=== PATIENT | male | born 1965 | race Caucasian/White ===

== ENCOUNTER 2016-12-09 23:51 | Observation (INO) | payer MEDICAID, OTHER ==
[2016-12-10] MEDS ORDERED: THIAMINE 200 MG/2 ML IV ONE (00:35)
--- NOTE | 2016-12-10 00:42 | ERPHSYRPT ---
- History of Present Illness Time Seen by Provider: 12/10/16 00:37 Source: patient Exam Limitations: no limitations Physician History: This is a 51-year-old white male with history of coronary artery disease, high blood pressure, myocardial infarction, diabetes, arthritis, hepatitis, anxiety, bipolar depression, chronic back pain, hepatitis C Patient is brought with complaint of a seizure by the medics patient was noted to have Accu-Chek reads high high high per medics Patient states he hasn't been feeling well for the past few days he's been having some lower abdominal pain he is not having any vomiting he has had a off for the past several days denies any fevers. Patient does state that he occasionally uses alcohol he admits to drinking today but cannot quantify how much. He also states that he occasionally uses marijuana. Patient also states that he smokes tobacco. Timing/Duration: today Severity: moderate Modifying Factors: Improves With: nothing Associated Symptoms: abdominal pain, cough, chest pain (pain with coughing anterior chest), malaise, seizure, No nausea, No vomiting, No shortness of breath, No heartburn, No diaphoresis, No fever, No headaches, No loss of appetite, No rash, No syncope, No weakness Allergies/Adverse Reactions: Penicillins Allergy (Verified 12/10/16 00:56) cant remember tramadol Adverse Reaction (Mild, Verified 12/10/16 00:56) "It makes my stomach messed up" haloperidol [From Haldol] Adverse Reaction (Verified 12/10/16 00:56) muscle contractions Home Medications: Atorvastatin Calcium 40 mg PO DAILY 02/12/16 [History] Insulin Regular, Human [Humulin R] 1 unit IJ DAILY 02/12/16 [History] Isosorbide Mononitrate 30 mg [Imdur 30 MG] 30 mg PO DAILY 02/12/16 [History ] Lisinopril 5 mg [Zestril 5 MG] 5 mg PO DAILY 02/12/16 [History] Naproxen [Naprosyn] 500 mg PO BID 02/12/16 [History] Omeprazole 20 MG [Prilosec 20 mg] 20 mg PO DAILY 02/12/16 [History] Prasugrel HCl [Effient] 10 mg PO DAILY 02/12/16 [History] Hx Tetanus, Diphtheria Vaccination/Date Given: Yes Hx Influenza Vaccination/Date Given: Yes Hx Pneumococcal Vaccination/Date Given: No - Review of Systems Constitutional: No Fever, No Chills Eyes: No Symptoms Ears, Nose, & Throat: No Symptoms, No Ear Pain, No Ear Discharge, No Hearing Changes, No Tinnitus, No Nose Pain, No Nose Congestion, No Nose Discharge, No Sinus Drainage, No Epistaxis, No Mouth Pain, No Mouth Swelling, No Loose Teeth, No Throat Pain, No Throat Swelling, No Hoarse, No Painful Swallowing, No Snoring , No Stridor Respiratory: Cough, No Cyanosis, No Dyspnea, No Dyspnea on Exertion (ORTIZ), No Stridor, No Wheezing Cardiac: Chest Pain (pain with coughing anterior chest) Abdominal/Gastrointestinal: Abdominal Pain (pain level abdomen), No Nausea, No Vomiting, No Diarrhea, No Constipation, No Hematemesis, No Hematochezia, No Melena, No Dysphagia, No Appetite Changes Genitourinary Symptoms: No Dysuria Musculoskeletal: No Back Pain, No Neck Pain Skin: No Rash Neurological: Seizure (seizure activity just prior to arrival), No Dizziness, No Focal Weakness, No Sensory Changes Psychological: No Symptoms Endocrine: No Symptoms All Other Systems: Reviewed and Negative - Past Medical History Pertinent Past Medical History: Yes Neurological History: No Pertinent History, Seizures ENT History: No Pertinent History Cardiac History: Coronary Artery Disease, Hypertension, Myocardial Infarction ( [place]) Respiratory History: No Pertinent History Endocrine Medical History: Diabetes Type II Musculoskeletal History: Arthritis GI Medical History: GERD, Hepatitis History: No Pertinent History Psycho-Social History: Anxiety, Bipolar, Depression Male Reproductive Disorders: No Pertinent History Other Medical History: CHRONIC BACK PAIN , hepatitis C - Past Surgical History Past Surgical History: Yes Neuro Surgical History: No Pertinent History Cardiac: Angioplasty, Cardiac Catheterization Respiratory: No Pertinent History Gastrointestinal: Cholecystectomy Genitourinary: No Pertinent History Musculoskeletal: Orthopedic Surgery Male Surgical History: No Pertinent History Other Surgical History: KNEE - - Social History Smoking Status: Current every day smoker How long have you smoked: 25 yrs Exposure to second hand smoke: Yes Drug Use: marijuana Patient Lives Alone: No - Nursing Vital Signs Nursing Vital Signs: Initial Vital Signs Temperature 98 F Temperature Source Oral Pulse Rate 112 Respiratory Rate 16 Blood Pressure [Right Arm] 124/88 Pain Intensity 5 - Physical Exam General Appearance: mild distress Eye Exam: PERRL/EOMI, eyes nml inspection Ears, Nose, Throat Exam: normal ENT inspection, TMs normal, pharynx normal, moist mucous membranes Neck Exam: normal inspection, non-tender, supple, full range of motion Respiratory Exam: lungs clear, rhonchi (occasional rhonchi), No respiratory distress Cardiovascular Exam: regular rate/rhythm, normal heart sounds, normal peripheral pulses Gastrointestinal/Abdomen Exam: soft, normal bowel sounds, tenderness (lower abdominal tenderness), No mass Back Exam: normal inspection, normal range of motion, No CVA tenderness, No vertebral tenderness Extremity Exam: normal inspection, normal range of motion, pelvis stable Neurologic Exam: alert, oriented x 3, cooperative, normal mood/affect, nml cerebellar function, nml station & gait, sensation nml, No motor deficits Skin Exam: normal color, warm, dry, No rash SpO2 Interpretation: normal - Course Nursing assessment & vital signs reviewed: Yes Ordered Tests: Active Orders 24 hr Category Date Time Status Accucheck STAT Care 12/10/16 00:35 Active EKG-ER Only STAT Care 12/10/16 00:35 Active IV Insertion STAT Care 12/10/16 00:35 Active CHEST 1 VIEW (PORTABLE) Stat Exams 12/10/16 00:36 Taken ACETAMINOPHEN Stat Lab 12/10/16 00:35 Completed AMYLASE Stat Lab 12/10/16 00:35 Completed CBC W DIFF Stat Lab 12/10/16 00:35 Completed CMP Stat Lab 12/10/16 00:35 Completed Ethyl Alcohol,Urine Stat Lab 12/10/16 00:35 Completed LIPASE Stat Lab 12/10/16 00:35 Completed SALICYLATE Stat Lab 12/10/16 00:35 Completed TROPONIN Stat Lab 12/10/16 01:30 Received UA Stat Lab 12/10/16 00:35 Completed Urine Triage Profile Stat Lab 12/10/16 00:35 Completed VENOUS BLOOD GAS Urgent Lab 12/10/16 00:37 Completed Medication Summary Generic Name Dose Route Start Last Admin Trade Name Freq PRN Reason Stop Dose Admin Sodium Chloride 1,000 mls @ 100 mls/hr 12/10/16 00:45 12/10/16 01:00 Sodium Chloride 0.9% 1000 Ml IV 01/09/17 00:44 100 mls/hr .Q10H JENNIFER Administration Sodium Chloride 1,000 mls @ 999 mls/hr 12/10/16 01:17 Sodium Chloride 0.9% 1000 Ml IV 12/10/16 02:17 .Q1H1M STA Discontinued Medications Generic Name Dose Route Start Last Admin Trade Name Altaf PRN Reason Stop Dose Admin Sodium Chloride Confirm 12/10/16 00:58 Sodium Chloride 0.9% 1000 Ml Administered 12/10/16 00:59 Dose 1,000 mls @ .ROUTE .STK-MED ONE Morphine Sulfate 4 mg 12/10/16 01:31 Morphine Sulfate 4 Mg Inj IV 12/10/16 01:32 STAT ONE Thiamine HCl 100 mg 12/10/16 00:35 12/10/16 00:59 Thiamine 200 Mg/2 Ml IV 12/10/16 00:36 100 mg STAT ONE Administration Thiamine HCl Confirm 12/10/16 00:58 Thiamine 200 Mg/2 Ml Administered 12/10/16 00:59 Dose 200 mg .ROUTE .STK-MED ONE Lab/Rad Data: Laboratory Result Diagrams 12/10/16 00:35 12/10/16 00:35 Laboratory Results 12/10/16 12/10/16 12/10/16 Range/Units 00:37 00:35 00:35 WBC (4.0-10.5) K/mm3 RBC (4.1-5.6) M/mm3 Hgb (12.5-18.0) gm/dl Hct (42-50) % MCV (78-100) fl MCH (26-32) pg MCHC (32-36) g/dl RDW (11.5-14.0) % Plt Count (150-450) K/mm3 MPV (6-9.5) fl Gran % (36.0-66.0) % Lymphocytes % (24.0-44.0) % Monocytes % (0.0-12.0) % Eosinophils % (0.00-5.0) % Basophils % (0.0-0.4) % Basophils # (0-0.4) VBG pH 7.47 H (7.32-7.42) VBG pCO2 at Pat Temp 35 L (42-55) mm/Hg VBG pO2 at Pat Temp 39 (25-40) mm/Hg VBG HCO3 25.5 (22-28) meq/L VBG O2 Sat ([place]) 78.4 L (95-100) VBG Base Excess 2.2 H (-2.0-2.0) VBG Hemoglobin 15.9 VBG Carboxyhemoglobin 5.8 (0.0-6.9) % T HGB POC Potassium 5.6 H (3.5-5.1) Sodium 134 L (136-145) mEq/L Potassium 4.2 (3.5-5.1) mEq/L Chloride 97 L (98-107) mEq/L Carbon Dioxide 22.9 (21-32) mEq/L Anion Gap 18.6 H (5-15) MEQ/L BUN 12 (9-20) mg/dL Creatinine 1.03 (0.55-1.30) mg/dl Estimated GFR > 60 ML/MIN Glucose 742 H* (70-110) MG/DL Calcium 9.0 (8.5-10.1) mg/dL Total Bilirubin 0.7 (0.2-1.0) mg/dL AST 119 H (15-37) U/L ALT 226 H (12-78) U/L Alkaline Phosphatase 147 H (46-116) U/L Serum Total Protein 7.9 (6.4-8.2) gm/dL Albumin 3.0 L (3.4-5.0) g/dL Amylase 51 (25-115) U/L Lipase 136 (73-393) U/L Ur Collection Type Urine Color (YELLOW) Urine Appearance (CLEAR) Urine pH 5.5 (5-6) Ur Specific [place] (1.005-1.025) Urine Protein (Negative) Urine Glucose (UA) (NEGATIVE) mg/dL Urine Ketones (NEGATIVE) Urine Nitrite (NEGATIVE) Urine Bilirubin (NEGATIVE) Urine Urobilinogen (0-1) mg/dL Urine WBC (Auto) (NEGATIVE) Urine RBC (Auto) (0-5) Faisal/ul Salicylates < 2.8 L (2.8-20.0) mg/dl Urine Opiates Level (NEGATIVE) Ur Methadone (NEGATIVE) Acetaminophen < 2.0 L (10-30) ug/ml Urine Barbiturates (NEGATIVE) Ur Phencyclidine (PCP) (NEGATIVE) Urine Amphetamine (NEGATIVE) U Benzodiazepine Level (NEGATIVE) Urine Cocaine (NEGATIVE) Urine Marijuana (THC) (NEGATIVE) Urine Ethyl Alcohol 122 H (0.00-20) mg/dl Specimen Received 02/10/17 02/10/17 02/10/17 Range/Units 00:35 00:35 00:35 WBC 6.5 (4.0-10.5) K/mm3 RBC 5.01 (4.1-5.6) M/mm3 Hgb 15.5 (12.5-18.0) gm/dl Hct 46.6 (42-50) % MCV 93.0 (78-100) fl MCH 30.9 (26-32) pg MCHC 33.3 (32-36) g/dl RDW 13.9 (11.5-14.0) % Plt Count 113 L (150-450) K/mm3 MPV 11.8 H (6-9.5) fl Gran % 50.5 (36.0-66.0) % Lymphocytes % 38.8 (24.0-44.0) % Monocytes % 8.8 (0.0-12.0) % Eosinophils % 1.1 (0.00-5.0) % Basophils % 0.8 (0.0-0.4) % Basophils # 0.05 (0-0.4) VBG pH (7.32-7.42) VBG pCO2 at Pat Temp (42-55) mm/Hg VBG pO2 at Pat Temp (25-40) mm/Hg VBG HCO3 (22-28) meq/L VBG O2 Sat ([place]) (95-100) VBG Base Excess (-2.0-2.0) VBG Hemoglobin VBG Carboxyhemoglobin (0.0-6.9) % T HGB POC Potassium (3.5-5.1) Sodium (136-145) mEq/L Potassium (3.5-5.1) mEq/L Chloride (98-107) mEq/L Carbon Dioxide (21-32) mEq/L Anion Gap (5-15) MEQ/L BUN (9-20) mg/dL Creatinine (0.55-1.30) mg/dl Estimated GFR ML/MIN Glucose (70-110) MG/DL Calcium (8.5-10.1) mg/dL Total Bilirubin (0.2-1.0) mg/dL AST (15-37) U/L ALT (12-78) U/L Alkaline Phosphatase (46-116) U/L Serum Total Protein (6.4-8.2) gm/dL Albumin (3.4-5.0) g/dL Amylase (25-115) U/L Lipase (73-393) U/L Ur Collection Type CLEAN CATCH Urine Color YELLOW (YELLOW) Urine Appearance CLEAR (CLEAR) Urine pH 5.5 (5-6) Ur Specific [place] <=1.005 (1.005-1.025) Urine Protein NEGATIVE (Negative) Urine Glucose (UA) >=1000 (NEGATIVE) mg/dL Urine Ketones NEGATIVE (NEGATIVE) Urine Nitrite NEGATIVE (NEGATIVE) Urine Bilirubin NEGATIVE (NEGATIVE) Urine Urobilinogen 0.2 (0-1) mg/dL Urine WBC (Auto) NEGATIVE (NEGATIVE) Urine RBC (Auto) NEGATIVE (0-5) Faisal/ul Salicylates (2.8-20.0) mg/dl Urine Opiates Level NEG. (NEGATIVE) Ur Methadone NEG. (NEGATIVE) Acetaminophen (10-30) ug/ml Urine Barbiturates NEG. (NEGATIVE) Ur Phencyclidine (PCP) NEG. (NEGATIVE) Urine Amphetamine NEG. (NEGATIVE) U Benzodiazepine Level NEG. (NEGATIVE) Urine Cocaine NEG. (NEGATIVE) Urine Marijuana (THC) NEG. (NEGATIVE) Urine Ethyl Alcohol (0.00-20) mg/dl Specimen Received 12/10/16:0030 - Progress Progress: improved Progress Note: 12/10/16 01:38 Patient with a blood sugar greater than 700 and and gap is 18.6 Patient's blood alcohol level is 122, IV normal saline 2 L have been ordered on this patient will change to 150 an hour after they're both in Will start insulin drip Case is discussed with Dr. Martell Avendano will admit patient to ICU Diagnosis hyperglycemia alcohol intoxication seizure activity - Departure Time of Disposition: 01:56 Departure Disposition: Observation Clinical Impression: Hyperglycemia, Seizure Alcohol intoxication Qualifiers: Complication of substance-induced condition: uncomplicated Qualified Code(s): F10.120 - Alcohol abuse with intoxication, uncomplicated Condition: Fair Critical Care Time: No
[2016-12-10] MEDS ORDERED: Sodium Chloride 0.9% 1000 ML 1,000 ML IV SCH ×2 (00:45→04:15)
[2016-12-10 00:46] LABS: BASOPHIL % 0.8 % (0.0-0.4); Eosinophil % 1.1 % (0.00-5.0); Granulocytes % 50.5 % (36.0-66.0); Lymphocytes % 38.8 % (24.0-44.0); Mean Corpuscular Hemoglobin 30.9 pg (26-32); Mean Platelet Volume 11.8 fl (6-9.5); Monocytes % 8.8 % (0.0-12.0); Platelet Count 113 K/mm3 (150-450); Red Blood Count 5.01 M/mm3 (4.1-5.6); Red Cell Distribution Width 13.9 % (11.5-14.0); White Blood Count 6.5 K/mm3 (4.0-10.5)
[2016-12-10 00:48] LABS: COMPLETE URINE MICROSCOPIC? NO; Collection Type CLEAN CATCH; Ph 5.5 (5-6)
[2016-12-10] MEDS ORDERED: THIAMINE 200 MG/2 ML ONE (00:58)
[2016-12-10] MEDS ORDERED: Sodium Chloride 0.9% 1000 ML 1,000 ML ONE ×2 (00:58→02:07)
[2016-12-10 01:02] LABS: BILIRUBIN,TOTAL 0.7 mg/dL (0.2-1.0); BLOOD UREA NITROGEN 12 mg/dL (9-20); CHLORIDE 97 mEq/L (98-107); LIPASE 136 U/L (73-393); Total Protein 7.9 gm/dL (6.4-8.2)
[2016-12-10 01:15] LABS: ALKALINE PHOSPHATASE 147 U/L (46-116); ANION GAP 18.6 MEQ/L (5-15); Carbon Dioxide 22.9 mEq/L (21-32); Potassium 4.2 mEq/L (3.5-5.1); SGOT/AST 119 U/L (15-37); SGPT/ALT 226 U/L (12-78); SODIUM 134 mEq/L (136-145)
[2016-12-10 01:16] LABS: ACETAMINOPHEN < 2.0 ug/ml (10-30); Glucose 742 MG/DL (70-110)
[2016-12-10] MEDS ORDERED: Sodium Chloride 0.9% 1000 ML 1,000 ML IV STA ×2 (01:17→03:33)
[2016-12-10] MEDS ORDERED: MORPHINE SULFATE 4 MG INJ IV ONE (01:31)
[2016-12-10 01:38] LABS: VBG BASE EXCESS 2.2 (-2.0-2.0); VBG CARBOXYHEMOGLOBIN 5.8 % T HGB (0.0-6.9); VBG HCO3- 25.5 meq/L (22-28); VBG HEMOGLOBIN 15.9; VBG O2 SATURATION 78.4 (95-100); VBG POTASSIUM 5.6 (3.5-5.1); VBG pH 7.47 (7.32-7.42)
[2016-12-10] MEDS ORDERED: NOVOLIN R INSULIN (FOR DRIPS)** 100 UNITS in Sodium Chloride 0.9% 100 ML IVPB 100 ML IV SCH (02:00)
[2016-12-10] MEDS ORDERED: MORPHINE SULFATE 4 MG INJ ONE (02:07)
[2016-12-10] MEDS ORDERED: NovoLIN R ONE (02:21)
[2016-12-10] MEDS ORDERED: Sodium Chloride 0.9% 100 ML IVPB 100 ML IV ONE (02:22)
[2016-12-10] MEDS ORDERED: Ativan 2 MG/1 ML VIAL IV PRN (03:59)
[2016-12-10 05:42] LABS: ANION GAP 10.7 MEQ/L (5-15); BLOOD UREA NITROGEN 11 mg/dL (9-20); CHLORIDE 103 mEq/L (98-107); Carbon Dioxide 26.1 mEq/L (21-32); Glucose 358 MG/DL (70-110); Potassium 3.2 mEq/L (3.5-5.1); SODIUM 137 mEq/L (136-145)
[2016-12-10 05:43] LABS: Mean Cell Volume 91.8 fl (78-100); Mean Corpuscular Hemoglobin 31.1 pg (26-32); Mean Platelet Volume 11.7 fl (6-9.5); Platelet Count 98 K/mm3 (150-450); Red Blood Count 3.92 M/mm3 (4.1-5.6); Red Cell Distribution Width 13.7 % (11.5-14.0); White Blood Count 7.6 K/mm3 (4.0-10.5)
[2016-12-10] MEDS ORDERED: K-LYTE 25 MEQ PO SCH (06:30)
[2016-12-10] MEDS: NICODERM CQ 14 MG TOP SCH (06:45)
[2016-12-10] MEDS: POTASSIUM CHLORIDE 20 mEq IN WATER 100ML 100 ML IV SCH ×2 (06:45→08:07)
[2016-12-10] MEDS ORDERED: Klor Con 10 MEQ PO ONE (07:54)
--- NOTE | 2016-12-10 08:06 | PCM.HP ---
History of Present Illness - Chief Complaint Chief Complaint: DKA, ETOH intoxication, Seizure Date: 12/10/16 History of Present Illness: is a 51 year old male. who was released from shelter 3 days ago after being in shelter for 40 days. He has history of iv drug abuse with morphine he states he has been clean from this for that time period and was taking his meds in shelter but has not had any since release from shelter. He had "a few drinks but they were stiff". He called his friend because he was not feeling right who said he was not responding on the phone and then called the EMS who reported some possible seizure like activity and he was brought to the ED. THis am his only complaint is he is tired and hungry and his chronic back pain is bothering him. - Review of Systems Constitutional: No Fever, No Chills Eyes: No Symptoms Ears, Nose, & Throat: No Symptoms Respiratory: Cough, No Short Of Breath Cardiac: No Chest Pain, No Edema, No Syncope Abdominal/Gastrointestinal: No Abdominal Pain, No Nausea, No Vomiting, No Diarrhea Genitourinary Symptoms: No Dysuria Musculoskeletal: Back Pain, Joint Pain, No Neck Pain Skin: No Cellulitis, No Rash Neurological: No Dizziness, No Focal Weakness, No Sensory Changes Psychological: No Symptoms, Alcohol Abuse, Drug Abuse Endocrine: No Symptoms Hematologic/Lymphatic: No Symptoms Immunological/Allergic: No Symptoms Medications & Allergies Home Medications: Home Medication List Atorvastatin Calcium 40 mg PO DAILY 02/12/16 [History Confirmed 09/13/16] Insulin Regular, Human [Humulin R] 1 unit IJ DAILY 02/12/16 [History Confirmed 09/13/16] Isosorbide Mononitrate 30 mg [Imdur 30 MG] 30 mg PO DAILY 02/12/16 [ History Confirmed 09/13/16] Lisinopril 5 mg [Zestril 5 MG] 5 mg PO DAILY 02/12/16 [History Confirmed 09/13/16] Naproxen [Naprosyn] 500 mg PO BID 02/12/16 [History Confirmed 09/13/16] Omeprazole 20 MG [Prilosec 20 mg] 20 mg PO DAILY 02/12/16 [History Confirmed ] Prasugrel HCl [Effient] 10 mg PO DAILY 02/12/16 [History Confirmed 09/13/16] Naproxen 375 mg [Naprosyn 375 mg] 375 mg PO Q8H #30 tablet 08/15/16 [Rx Confirmed 09/13/16] Carvedilol [Coreg] 25 mg PO BID #60 tablet 09/17/16 [Rx] Citalopram Hydrobromide 20 mg* [ceLEXa 20 MG] 20 mg PO DAILY #30 tablet 09/17 [Rx] Clindamycin HCl [Cleocin HCl] 300 mg PO QID #28 capsule 09/17/16 [Rx] Insulin Aspart [NovoLOG Insulin] 5 unit SQ AC #0 unit 09/17/16 [Rx] Insulin Glargine,Hum.rec.anlog [Lantus Solostar] 35 unit SQ HS #15 ml 09/17/16 [ Rx] Naproxen [Naprosyn] 500 mg PO Q12H PRN PRN #20 tablet 11/09/16 [Rx] Allergies/Adverse Reactions: Allergies Allergy/AdvReac Type Severity Reaction Status Date / Time Penicillins Allergy Verified 12/10/16 00:56 tramadol AdvReac Mild Verified 12/10/16 00:56 haloperidol [From Haldol] AdvReac Verified 12/10/16 00:56 - Past Medical History Past Medical History: Yes Neurological History: No Pertinent History, Seizures ENT History: No Pertinent History Cardiac History: Coronary Artery Disease, Hypertension, Myocardial Infarction ( [place]) Respiratory History: No Pertinent History Endocrine Medical History: Diabetes Type II Musculoskelatal History: Arthritis GI Medical History: GERD, Hepatitis History: No Pertinent History Pyscho-Social History: Anxiety, Bipolar, Depression Male Reproductive Disorders: No Pertinent History Comment: CHRONIC BACK PAIN , hepatitis C - Past Surgical History Past Surgical History: Yes Neuro Surgical History: No Pertinent History Cardiac History: Angioplasty, Cardiac Catheterization Respiratory Surgery: No Pertinent History GI Surgical History: Cholecystectomy Genitourinary Surgical Hx: No Pertinent History Musculskeletal Surgical Hx: Orthopedic Surgery Male Surgical History: No Pertinent History Other Surgical History: KNEE - - Social History Smoking Status: Current every day smoker How long have you smoked: 25 yrs Exposure to second hand smoke: No Alcohol: Weekly Drug Use: marijuana - Physical Exam Vital Signs: Vital Signs - 24 hr Temp Pulse Resp BP Pulse Ox 12/10/16 07:15 96 H 20 93/49 93 L 12/10/16 04:52 97.8 F 100 H 21 103/59 94 L 12/10/16 04:00 100 H 12/10/16 02:30 109 H 122/77 96 12/10/16 02:00 102 H 18 131/92 99 12/10/16 01:00 100 H 16 128/83 98 12/10/16 00:54 98 F 112 H 16 124/88 99 General Appearance: no apparent distress, alert Neurologic Exam: alert, oriented x 3, cooperative, normal mood/affect, nml cerebellar function, nml station & gait, sensation nml, No motor deficits Eye Exam: PERRL/EOMI, eyes nml inspection, No scleral icterus, No pale conjunctivae Ears, Nose, Throat Exam: normal ENT inspection, TMs normal, pharynx normal, dry mucous membranes Neck Exam: normal inspection, non-tender, supple, full range of motion Respiratory Exam: normal breath sounds, lungs clear, No respiratory distress Cardiovascular Exam: regular rate/rhythm, normal heart sounds, normal peripheral pulses Gastrointestinal/Abdomen Exam: soft, normal bowel sounds, No tenderness, No mass Back Exam: normal inspection, normal range of motion, No CVA tenderness, No vertebral tenderness Extremity Exam: normal inspection, normal range of motion, pelvis stable Skin Exam: normal color, warm, dry, No rash Lymphatic Exam: No adenopathy Results - Labs Lab/Micro Results: Accuchecks Date 12/10/16 Date 12/10/16 Date 12/10/16 Date 12/10/16 Time 07:08 Time 06:10 Time 05:10 Time 04:00 Accucheck Value: 290 Accucheck Value: 371 Accucheck Value: 378 Accucheck Value: 380 Lab Results-Last 24 Hours 12/10/16 12/10/16 Range/Units 05:20 05:20 WBC 7.6 (4.0-10.5) K/mm3 RBC 3.92 L (4.1-5.6) M/mm3 Hgb 12.2 L (12.5-18.0) gm/dl Hct 36.0 L (42-50) % MCV 91.8 (78-100) fl MCH 31.1 (26-32) pg MCHC 33.9 (32-36) g/dl RDW 13.7 (11.5-14.0) % Plt Count 98 L (150-450) K/mm3 MPV 11.7 H (6-9.5) fl Sodium 137 (136-145) mEq/L Potassium 3.2 L (3.5-5.1) mEq/L Chloride 103 (98-107) mEq/L Carbon Dioxide 26.1 (21-32) mEq/L Anion Gap 10.7 (5-15) MEQ/L BUN 11 (9-20) mg/dL Creatinine 0.66 (0.55-1.30) mg/dl Estimated GFR > 60 ML/MIN Glucose 358 H (70-110) MG/DL Calcium 7.8 L (8.5-10.1) mg/dL Slides for Path Review YES Accuchecks Date 12/10/16 Date 12/10/16 Date 12/10/16 Date 12/10/16 Time 07:08 Time 06:10 Time 05:10 Time 04:00 Accucheck Value: 290 Accucheck Value: 371 Accucheck Value: 378 Accucheck Value: 380 - Other Procedures and Tests Respiratory Therapy 12/10/16 05:38 Smoking Cessation Education ONCE Assessment/Plan (1) HHNC (hyperglycemic hyperosmolar nonketotic coma) Current Visit: Yes Status: Acute Assessment & Plan: improving now with the bolus fluids and the insulin gtt more alert now start diet give his lantus at 35 Units stop gtt after this continue close observe blood sugar replace potassium recheck with magnesium increase fluids with the dehydration 200 mL/h 1/2 NS Code(s): E11.01 - TYPE 2 DIABETES MELLITUS WITH HYPEROSMOLARITY WITH COMA (2) Alcohol intoxication Current Visit: Yes Status: Acute Qualifiers: Complication of substance-induced condition: uncomplicated Qualified Code(s ): F10.120 - Alcohol abuse with intoxication, uncomplicated (3) Seizure Current Visit: Yes Status: Acute Code(s): R56.9 - UNSPECIFIED CONVULSIONS (4) Multiple substance abuse Current Visit: Yes Status: Chronic Code(s): F19.10 - OTHER PSYCHOACTIVE SUBSTANCE ABUSE, UNCOMPLICATED (5) Hepatitis C Current Visit: Yes Status: Chronic Qualifiers: Viral hepatitis chronicity: unspecified Hepatic coma status: without hepatic coma Qualified Code(s): B19.20 - Unspecified viral hepatitis C without hepatic coma (6) Depression Current Visit: No Status: Acute Code(s): F32.9 - MAJOR DEPRESSIVE DISORDER, SINGLE EPISODE, UNSPECIFIED
[2016-12-10] MEDS: Lantus Insulin SQ SCH (08:08)
--- NOTE | 2016-12-10 08:40 | XRAY ---
Indication: Cough Comparison: November 09, 2016. Portable chest remains clear. Heart and mediastinal structures within normal limits. Bony thorax intact. New/acute findings.
[2016-12-10] MEDS: TYLENOL 325 MG PO PRN (11:40)
[2016-12-10] MEDS: VITAMIN B-1 100 MG PO SCH (11:41)
[2016-12-10 11:50] LABS: ANION GAP 10.7 MEQ/L (5-15); BLOOD UREA NITROGEN 10 mg/dL (9-20); CHLORIDE 104 mEq/L (98-107); Carbon Dioxide 28.2 mEq/L (21-32); Glucose 247 MG/DL (70-110); MAGNESIUM 1.4 mg/dL (1.8-2.4); Potassium 4.1 mEq/L (3.5-5.1); SODIUM 139 mEq/L (136-145)
[2016-12-10] MEDS: NovoLOG Insulin SQ SCH ×3 (12:07→21:58)
[2016-12-10] MEDS ORDERED: Phenergan 25 MG INJ IV PRN (12:13)
[2016-12-10] MEDS: NORCO 5/325 MG PO PRN ×2 (12:52→16:51)
[2016-12-10] MEDS: Magnesium 1 Gm / 100 Ml D5W*** 100 ML IV SCH ×2 (12:53→13:35)
[2016-12-10] MEDS ORDERED: Nitrostat 0.4 MG Tablet SL PRN (22:17)
[2016-12-10] MEDS: MORPHINE SULFATE 4 MG INJ IV PRN (22:59)
[2016-12-11] MEDS: MORPHINE SULFATE 4 MG INJ IV PRN ×3 (03:07→07:56)
[2016-12-11 05:25] LABS: Mean Cell Volume 90.9 fl (78-100); Mean Corpuscular Hemoglobin 31.7 pg (26-32); Mean Platelet Volume 11.6 fl (6-9.5); Platelet Count 90 K/mm3 (150-450); Red Blood Count 4.19 M/mm3 (4.1-5.6); Red Cell Distribution Width 13.6 % (11.5-14.0); White Blood Count 5.2 K/mm3 (4.0-10.5)
[2016-12-11 05:38] LABS: ALBUMIN 2.4 g/dL (3.4-5.0); ALKALINE PHOSPHATASE 121 U/L (46-116); ANION GAP 10.5 MEQ/L (5-15); BILIRUBIN,TOTAL 0.6 mg/dL (0.2-1.0); BLOOD UREA NITROGEN 7 mg/dL (9-20); CHLORIDE 105 mEq/L (98-107); Carbon Dioxide 26.1 mEq/L (21-32); Glucose 230 MG/DL (70-110); MAGNESIUM 1.4 mg/dL (1.8-2.4); Potassium 3.8 mEq/L (3.5-5.1); SGOT/AST 118 U/L (15-37); SGPT/ALT 175 U/L (12-78); SODIUM 138 mEq/L (136-145); Total Protein 5.9 gm/dL (6.4-8.2)
[2016-12-11] MEDS: NICODERM CQ 14 MG TOP SCH (05:47)
[2016-12-11] MEDS: NovoLOG Insulin SQ SCH ×7 (07:57→22:00)
[2016-12-11] MEDS: Lantus Insulin SQ SCH (07:57)
--- NOTE | 2016-12-11 09:29 | PCM.NOTE ---
Date and Time: 12/11/16925 Subjective Assessment: patient was having chest pain overnight, states it is sharp in nature and comes and goes. troponin has been negative. sugars have improved 240's this am, off of drip Objective Exam General Appearance: no apparent distress, alert Skin Exam: other (dry flaky lesion periumbilical, mild erythema) Respiratory Exam: normal breath sounds, lungs clear, No respiratory distress Cardiovascular Exam: regular rate/rhythm, normal heart sounds Gastrointestinal/Abdomen Exam: soft, No tenderness, No mass OBJECTIVE DATA Vital Signs: Vital Signs - 24 hr Temp Pulse Resp BP Pulse Ox 12/11/16 07:36 19 12/11/16 07:32 97.7 F 76 19 130/87 92 L 12/11/16 04:00 98.3 F 76 18 129/81 95 12/11/16 00:32 79 18 95 12/11/16 00:00 18 12/10/16 23:40 98.0 F 80 18 131/75 96 12/10/16 19:59 98.2 F 81 16 136/77 96 12/10/16 16:00 98.7 F 78 15 116/56 93 L 12/10/16 11:57 97.8 F 85 20 120/76 96 Oxygen-Last 24 hours O2 Percentage 2 Liters = 28% Pain Assessment - Last Documented Pain Intensity 9 Pain Scale Used 0-10 Pain Scale Intake and Output: Intake & Output 12/08/16 12/09/16 12/10/16 12/11/16 11:59 11:59 11:59 11:59 Intake Total 2413 1436 Output Total 800 Balance 1613 1436 Weight 75.841 kg 75.841 kg Lab Results: Accuchecks Date 12/11/16 Date 12/10/16 Date 12/10/16 Date 12/10/16 Time 07:00 Time 11:00 Accucheck Value: 235 Accucheck Value: 431 Accucheck Value: 412 Lab Results-Last 24 Hours 12/10/16 12/10/16 12/11/16 Range/Units 11:06 22:33 01:32 WBC (4.0-10.5) K/mm3 RBC (4.1-5.6) M/mm3 Hgb (12.5-18.0) gm/dl Hct (42-50) % MCV (78-100) fl MCH (26-32) pg MCHC (32-36) g/dl RDW (11.5-14.0) % Plt Count (150-450) K/mm3 MPV (6-9.5) fl Sodium 139 (136-145) mEq/L Potassium 4.1 (3.5-5.1) mEq/L Chloride 104 (98-107) mEq/L Carbon Dioxide 28.2 (21-32) mEq/L Anion Gap 10.7 (5-15) MEQ/L BUN 10 (9-20) mg/dL Creatinine 0.68 (0.55-1.30) mg/dl Estimated GFR > 60 ML/MIN Glucose 247 H (70-110) MG/DL Calcium 7.8 L (8.5-10.1) mg/dL Magnesium 1.4 L (1.8-2.4) mg/dL Total Bilirubin (0.2-1.0) mg/dL AST (15-37) U/L ALT (12-78) U/L Alkaline Phosphatase (46-116) U/L Troponin I 0.018 < 0.017 (0.000-0.056) ng/ml Serum Total Protein (6.4-8.2) gm/dL Albumin (3.4-5.0) g/dL 12/11/16 12/11/16 12/11/16 Range/Units 04:40 04:40 04:40 WBC 5.2 (4.0-10.5) K/mm3 RBC 4.19 (4.1-5.6) M/mm3 Hgb 13.3 (12.5-18.0) gm/dl Hct 38.1 L (42-50) % MCV 90.9 (78-100) fl MCH 31.7 (26-32) pg MCHC 34.9 (32-36) g/dl RDW 13.6 (11.5-14.0) % Plt Count 90 L (150-450) K/mm3 MPV 11.6 H (6-9.5) fl Sodium 138 (136-145) mEq/L Potassium 3.8 (3.5-5.1) mEq/L Chloride 105 (98-107) mEq/L Carbon Dioxide 26.1 (21-32) mEq/L Anion Gap 10.5 (5-15) MEQ/L BUN 7 L (9-20) mg/dL Creatinine 0.55 (0.55-1.30) mg/dl Estimated GFR > 60 ML/MIN Glucose 230 H (70-110) MG/DL Calcium 7.5 L (8.5-10.1) mg/dL Magnesium 1.4 L (1.8-2.4) mg/dL Total Bilirubin 0.6 (0.2-1.0) mg/dL AST 118 H (15-37) U/L ALT 175 H (12-78) U/L Alkaline Phosphatase 121 H (46-116) U/L Troponin I < 0.017 (0.000-0.056) ng/ml Serum Total Protein 5.9 L (6.4-8.2) gm/dL Albumin 2.4 L (3.4-5.0) g/dL 12/11/16 Range/Units 07:30 WBC (4.0-10.5) K/mm3 RBC (4.1-5.6) M/mm3 Hgb (12.5-18.0) gm/dl Hct (42-50) % MCV (78-100) fl MCH (26-32) pg MCHC (32-36) g/dl RDW (11.5-14.0) % Plt Count (150-450) K/mm3 MPV (6-9.5) fl Sodium (136-145) mEq/L Potassium (3.5-5.1) mEq/L Chloride (98-107) mEq/L Carbon Dioxide (21-32) mEq/L Anion Gap (5-15) MEQ/L BUN (9-20) mg/dL Creatinine (0.55-1.30) mg/dl Estimated GFR ML/MIN Glucose (70-110) MG/DL Calcium (8.5-10.1) mg/dL Magnesium (1.8-2.4) mg/dL Total Bilirubin (0.2-1.0) mg/dL AST (15-37) U/L ALT (12-78) U/L Alkaline Phosphatase (46-116) U/L Troponin I < 0.017 (0.000-0.056) ng/ml Serum Total Protein (6.4-8.2) gm/dL Albumin (3.4-5.0) g/dL Assessment/Plan (1) Chest pain Current Visit: Yes Status: Acute Assessment & Plan: CT ruled out, seems pleuritic. try toradol for pain and d/c morphine. patient has a history of drug abuse Code(s): R07.9 - CHEST PAIN, UNSPECIFIED (2) Candidiasis of skin Current Visit: Yes Status: Acute Assessment & Plan: ketoconazole cream to umbilicus Code(s): B37.2 - CANDIDIASIS OF SKIN AND NAIL (3) HHNC (hyperglycemic hyperosmolar nonketotic coma) Current Visit: Yes Status: Acute Assessment & Plan: sugars improved, this am was 240's but required high doses of coverage yesterday. will increase lantus dosage to 45 units daily Code(s): E11.01 - TYPE 2 DIABETES MELLITUS WITH HYPEROSMOLARITY WITH COMA
[2016-12-11] MEDS ORDERED: PNEUMOVAX 23 IM ONE (10:00)
[2016-12-11] MEDS ORDERED: FLUZONE QUAD 2016-2017 SYRINGE 36MO-64YO IM ONE (10:30)
[2016-12-11] MEDS: Nizoral CREAM TOP SCH ×2 (10:54→21:59)
[2016-12-11] MEDS: ENOXAPARIN SODIUM SQ SCH (10:59)
[2016-12-11] MEDS: VITAMIN B-1 100 MG PO SCH (11:56)
[2016-12-11] MEDS: TORAdol 30 mg Injection IV PRN ×2 (12:47→18:49)
[2016-12-11] MEDS: NORCO 5/325 MG PO PRN ×2 (17:04→22:04)
[2016-12-11] MEDS: TYLENOL 325 MG PO PRN (19:12)
[2016-12-12] MEDS: TORAdol 30 mg Injection IV PRN (01:02)
[2016-12-12] MEDS: NICODERM CQ 14 MG TOP SCH (05:47)
[2016-12-12 07:32] VITALS: BP 170/93; PULSE 81; O2SAT 95
[2016-12-12] MEDS: ENOXAPARIN SODIUM SQ SCH (07:35)
[2016-12-12] MEDS: NovoLOG Insulin SQ SCH ×2 (07:35)
[2016-12-12] MEDS: Nizoral CREAM TOP SCH (07:36)
[2016-12-12] MEDS: NORCO 5/325 MG PO PRN (07:39)
[2016-12-12] MEDS ORDERED: Lantus Insulin SQ SCH (08:00)
--- NOTE | 2016-12-12 08:49 | PCM.DS ---
Discharge Summary Date of Admission: 12/10/16 03:21 Admitting Physician: WILMA OVERTON Primary Care Provider: IKE COOPER Allergies Allergies Penicillins Allergy (Verified 12/10/16 00:56) cant remember tramadol Adverse Reaction (Mild, Verified 12/10/16 00:56) "It makes my stomach messed up" haloperidol [From Haldol] Adverse Reaction (Verified 12/10/16 00:56) muscle contractions Hospital Summary - Hospital Course Hospital Course: patient was admitted with hyperosmolar hyperglycemia, was released from [facility] recently and had no meds for his diabetes. was apparently intoxicated as well and had a seizure. he has a history of alcoholism and drug abuse. he is doing well now, sugars have been well controlled. had chest pain while admitted but GA ruled out. - Vitals & Intake/Output Vital Signs: Vital Signs Temperature 98.0 F 12/12/16 07:30 Pulse Rate 81 12/12/16 07:30 Respiratory Rate 20 12/12/16 07:30 Blood Pressure 170/93 12/12/16 07:30 O2 Sat by Pulse Oximetry 95 12/12/16 07:30 Oxygen-Last Documented O2 Percentage 2 Liters = 28% Intake & Output: Intake & Output 12/09/16 12/10/16 12/11/16 12/12/16 11:59 11:59 11:59 11:59 Intake Total 2413 1436 2230 Output Total 800 Balance 1613 1436 2230 Weight 75.841 kg 75.841 kg - Lab Result Diagrams: 12/11/16 04:40 12/11/16 04:40 Lab Results-Last 24 Hrs: Accuchecks Date 12/12/16 Date 12/11/16 Date 12/11/16 Time 07:30 Time 16:30 Time 11:30 Accucheck Value: 221 Accucheck Value: 319 Accucheck Value: 257 Accucheck Value: 326 Lab Results-Last 24 Hours 12/11/16 Range/Units 10:21 Troponin I < 0.017 (0.000-0.056) ng/ml Micro Results-Entire Visit: Accuchecks Date 12/12/16 Date 12/11/16 Date 12/11/16 Time 07:30 Time 16:30 Time 11:30 Accucheck Value: 221 Accucheck Value: 319 Accucheck Value: 257 Accucheck Value: 326 - Procedures and Test Procedures and Tests throughout Hospitalization: Therapy Orders & Screens 12/10/16 05:38 Smoking Cessation Education ONCE Comment: Diagnosis: DKA, ETOH intoxication, Seizure Smoking Status: Current every day smoker How long have you smoked: 25 yrs Have you smoked in the past 12 months: Yes Approximately how many cigarettes per day: 1/2 -1 pack Do you dip or chew tobacco: No If,Former Smoker,when did you quit: 201512/11/16 00:31 Oxygen NASAL CANNULA 2 lpm Comment: Diagnosis: DKA, ETOH intoxication, Seizure 12/11/16 07:00 EKG ROUTINE Comment: Diagnosis: DKA, ETOH intoxication, Seizure 12/11/16 15:00 EKG ROUTINE Comment: Diagnosis: DKA, ETOH intoxication, Seizure Discharge Exam General Appearance: no apparent distress, alert, thin (disheveled) Skin Exam: normal color, warm, dry Ears, Nose, Throat Exam: other (edentulous) Respiratory Exam: normal breath sounds, lungs clear, No respiratory distress Cardiovascular Exam: regular rate/rhythm, normal heart sounds Gastrointestinal/Abdomen Exam: soft, No tenderness, No mass Final Diagnosis/Problem List - Final Discharge Diagnosis/Problem (1) Chest pain Current Visit: Yes Status: Acute (2) Candidiasis of skin Current Visit: Yes Status: Acute (3) HHNC (hyperglycemic hyperosmolar nonketotic coma) Current Visit: Yes Status: Acute - Discharge Disposition: Home, Self-Care Condition: Fair Prescriptions: New Ketoconazole Cream [Nizoral CREAM] 1 applic TOP BID #30 g Continue Insulin Glargine [Lantus Insulin] 45 unit SQ AMINSULIN #1 vial Insulin Aspart [NovoLOG Insulin] 10 unit SQ AC #1 vial Lisinopril 10 mg [Zestril 10 MG] 10 mg PO DAILY #30 tablet Discontinued Hum Insulin NPH/Reg Insulin Hm [Novolin 70-30 100 Unit/ml Vial] 10 unit SQ EVENING MEAL Hum Insulin NPH/Reg Insulin Hm [Novolin 70-30 100 Unit/ml Vial] 20 unit SQ QAM Insulin Glargine,Hum.rec.anlog [Lantus] 34 unit SQ QHS Insulin Regular, Human [Humulin R] 1 unit IJ ACHS Follow up with: ALLISON,IKE J., MD [Primary Care Provider] - Forms: Patient Portal Information
== END 2016-12-12 09:45 | disposition home or self-care (01) ==
LOC: ED 23:51 → ICU 12-10 03:21 → UNDOADMOB 12-10 03:21 → ICU 12-10 12:44 → MED SURG 12-10 12:44 → UNDODISOB 12-12 09:45
PROVIDERS: ADMIT Family Medicine; ATTEND Family Medicine
DX: R07.9 Chest pain, unspecified (principal); B37.2 Candidiasis of skin and nail; E11.01 Type 2 diabetes mellitus with hyperosmolarity with coma; F10.120 Alcohol abuse with intoxication, uncomplicated; R56.9 Unspecified convulsions; F10.19 Alcohol abuse with unspecified alcohol-induced disorder; B19.20 Unspecified viral hepatitis C without hepatic coma; F32.9 Major depressive disorder, single episode, unspecified; Z79.899 Other long term (current) drug therapy
CPT/HCPCS: 36000; 36415; 71010; 80048; 80053; 80307; 80320; 81002; 82150; 82805; 82962; 83036; 83690; 83735; 83986; 84484; 85025; 85027; 90686; 90732; 93005; 93268; 94760; 96360; 96361; 96365; 99284; 99285; G0008; G0378; G0481; J1650; J1815; J1885; J2270; J2550; J3475; J3480

== ENCOUNTER 2017-05-06 00:50 | Emergency (ER) | payer OTHER ==
[2017-05-06 01:03] VITALS: BP 145/94; PULSE 97; O2SAT 97
--- NOTE | 2017-05-06 01:23 | ERPHSYRPT ---
- History of Present Illness Time Seen by Provider: 05/06/17 01:13 Source: patient Exam Limitations: no limitations Patient Subjective Stated Complaint: PATIENT LEFT LEG IS SWOLLEN AND IN PAIN Triage Nursing Assessment: PATIENT HAS MODERATE EDEMA OF LEFT FOOT AND ANKLE, HAS ULCEROUS AREAS ON BOTTOM OF LEFT FOOT, PEDAL PULSES PRESENT. ABLE TO AMBULATE. RESPONSIVE TO STIMULI. Physician History: 52-year-old white male with history of seizures, coronary disease, high blood pressure, diabetes, arthritis and chronic back pain arrives with complaint of pain and swelling to his left foot symptoms for 12 hours. Patient does have calluses on the bottoms what appears like he has been walking quite some time. He has no fevers no nausea no vomiting no leg pain. Past medical history includes seizures, coronary artery disease, high blood pressure, myocardial infarction, diabetes, arthritis, GERD, hepatitis, anxiety, bipolar disorder, depression, chronic back pain, hepatitis. Past surgical history includes cardiac catheter, cholecystectomy, angioplasty, orthopedic surgery, knee surgery. Method of Injury: unknown (no known injury he has been walking a lot) Occurred: hours ago (symptoms for 12 hours) Quality: constant Lower Extremities Pain: foot: left Modifying Factors: Improves With: nothing Associated Symptoms: none Allergies/Adverse Reactions: Penicillins Allergy (Verified 12/10/16 00:56) cant remember tramadol Adverse Reaction (Mild, Verified 12/10/16 00:56) "It makes my stomach messed up" haloperidol [From Haldol] Adverse Reaction (Verified 12/10/16 00:56) muscle contractions Hx Tetanus, Diphtheria Vaccination/Date Given: Yes Hx Influenza Vaccination/Date Given: No Hx Pneumococcal Vaccination/Date Given: No Immunizations Up to Date: Yes - Review of Systems Constitutional: No Fever, No Chills Eyes: No Symptoms Ears, Nose, & Throat: No Symptoms Respiratory: No Cough, No Dyspnea Cardiac: No Chest Pain, No Edema, No Syncope Abdominal/Gastrointestinal: No Abdominal Pain, No Nausea, No Vomiting, No Diarrhea Genitourinary Symptoms: No Dysuria Musculoskeletal: Other (pain and edema left foot) Skin: Other (Patient with abrasions to the plantar surface left foot) Neurological: No Dizziness, No Focal Weakness, No Sensory Changes Psychological: No Symptoms Endocrine: No Symptoms All Other Systems: Reviewed and Negative - Past Medical History Pertinent Past Medical History: Yes Neurological History: No Pertinent History, Seizures ENT History: No Pertinent History Cardiac History: Coronary Artery Disease, Hypertension, Myocardial Infarction ( [place]) Respiratory History: No Pertinent History Endocrine Medical History: Diabetes Type II Musculoskeletal History: Arthritis GI Medical History: GERD, Hepatitis History: No Pertinent History Psycho-Social History: Anxiety, Bipolar, Depression Male Reproductive Disorders: No Pertinent History Other Medical History: CHRONIC BACK PAIN , hepatitis C - Past Surgical History Past Surgical History: Yes Neuro Surgical History: No Pertinent History Cardiac: Angioplasty, Cardiac Catheterization Respiratory: No Pertinent History Gastrointestinal: Cholecystectomy Genitourinary: No Pertinent History Musculoskeletal: Orthopedic Surgery Male Surgical History: No Pertinent History Other Surgical History: KNEE - - Social History Smoking Status: Current every day smoker How long have you smoked: 25 yrs Exposure to second hand smoke: No Drug Use: marijuana Patient Lives Alone: No - Nursing Vital Signs Nursing Vital Signs: Initial Vital Signs Temperature 98.2 F Temperature Source Oral Pulse Rate 97 Respiratory Rate 18 Blood Pressure [] 145/94 Pain Intensity 10 - Physical Exam General Appearance: mild distress Eyes, Ears, Nose, Throat Exam: moist mucous membranes Neck Exam: non-tender, supple Cardiovascular/Respiratory Exam: chest non-tender, normal breath sounds, regular rate/rhythm, no respiratory distress Gastrointestinal/Abdominal Exam: non-tender, guarding Back Exam: normal inspection, No vertebral tenderness Hips Exam: bilateral: non-tender, normal inspection, no evidence of injury Legs Exam: bilateral leg: non-tender, normal inspection, normal range of motion , no evidence of injury Knees Exam: bilateral knee: non-tender, normal inspection, normal range of motion, no evidence of injury Ankle Exam: bilateral ankle: non-tender, normal inspection, normal range of motion, no evidence of injury Foot Exam: left foot: abrasions/lacerations (abrasions plantar surface left foot overlyingmedics tarsal phalangeal joints), swelling, bilateral foot: other (left wool hat forming machine tender with palpation) Neuro/Tendon Exam: normal sensation, normal motor functions Mental Status Exam: alert, oriented x 3, cooperative Skin Exam: normal color, warm, dry SpO2 Interpretation: normal (9 him7%) SpO2: 97 Oxygen Delivery: Room Air - Course Nursing assessment & vital signs reviewed: Yes - Radiology Exams Left Foot X-ray Interpretation: Interpreted by me, No Fracture, No Subluxation Ordered Tests: Active Orders 24 hr Category Date Time Status Crutches STAT Care 05/06/17 02:48 Active FOOT (MINIMUM 3 VIEWS) Stat Exams 05/06/17 01:18 Taken CBC W DIFF Stat Lab 05/06/17 01:50 Completed CMP Stat Lab 05/06/17 01:50 Completed Medication Summary Discontinued Medications Generic Name Dose Route Start Last Admin Trade Name Michaelq PRN Reason Stop Dose Admin Ketorolac Tromethamine 30 mg 05/06/17 01:59 Toradol 30 Mg Injection IV 05/06/17 02:00 STAT ONE Lab/Rad Data: Laboratory Result Diagrams 05/06/17 01:50 05/06/17 01:50 Laboratory Results 05/06/17 05/06/17 Range/Units 01:50 01:50 WBC 7.2 (4.0-10.5) K/mm3 RBC 4.57 (4.1-5.6) M/mm3 Hgb 14.5 (12.5-18.0) gm/dl Hct 42.5 (42-50) % MCV 93.0 (78-100) fl MCH 31.7 (26-32) pg MCHC 34.1 (32-36) g/dl RDW 13.4 (11.5-14.0) % Plt Count 103 L (150-450) K/mm3 MPV 12.4 H (6-9.5) fl Gran % 56.2 (36.0-66.0) % Lymphocytes % 29.8 (24.0-44.0) % Monocytes % 10.8 (0.0-12.0) % Eosinophils % 2.5 (0.00-5.0) % Basophils % 0.7 (0.0-0.4) % Basophils # 0.05 (0-0.4) Sodium 134 L (136-145) mEq/L Potassium 4.1 (3.5-5.1) mEq/L Chloride 95 L (98-107) mEq/L Carbon Dioxide 32.3 H (21-32) mEq/L Anion Gap 10.4 (5-15) MEQ/L BUN 15 (9-20) mg/dL Creatinine 0.86 (0.55-1.30) mg/dl Estimated GFR > 60 ML/MIN Glucose 232 H (70-110) MG/DL Calcium 8.9 (8.5-10.1) mg/dL Total Bilirubin 1.30 H (0.2-1.0) mg/dL AST 125 H (15-37) U/L ALT 165 H (12-78) U/L Alkaline Phosphatase 133 H (46-116) U/L Serum Total Protein 7.5 (6.4-8.2) gm/dL Albumin 3.0 L (3.4-5.0) g/dL - Progress Progress: improved Progress Note: 05/06/17 01:47 52-year-old white male with history of seizures coronary artery disease high blood pressure myocardial infarction diabetes arthritis GERD hepatitis anxiety bipolar depression chronic back pain and hepatitis C. Arrives with complaint of pain in his left foot swelling in his left foot symptoms since today. Patient does have a abrasions which looks like he's been walking for some time on his left foot has moderate edema of the left foot he has good dorsal pedal posterior tibial pulses good, 2 over 4 capillary refill to all toes full range of motion to all extremities, Patient has been offered Toradol for pain he does not want this I reviewed his inspect report patient apparently has been seen and prescribed oxycodone in the past last time was April 18, 2017 oxycodone 5/325 #15 he also was given oxycodone /acetaminophen 325/7. 5/90 on March 25, 2017 he also received oxycodone 5/325 #30 on March 12, 2017 I have told the patient that I do not feel comfortable at this time giving him narcotic analgesia he has received this from several other providers and appears to be receiving this on a fairly regular basis. Will go ahead and obtain x-ray the patient's left foot CBC BMP. 05/06/17 02:44 Patient's chemistry remarkable for elevated liver enzymes patient does have a history of hepatitis. Patient's CBC within normal limits x-ray left foot unremarkable. Will plan discharge of this patient. Patient will need to follow-up with his family doctor. 05/06/17 02:46 I went to tell the patient that his liver enzymes were elevated and that he would need to follow-up with his family doctor he stated "you lied to me I don' t want to talk to you anymore. Will go ahead and discharge patient he will need to follow-up with his family doctor Will write discharge instructions for this patient 05/06/17 03:29 - Departure Time of Disposition: 02:47 Departure Disposition: Home Clinical Impression: Left foot pain, dependent edema left foot, Elevated liver enzymes, History of hepatitis Condition: Fair Critical Care Time: No Referrals: DOCTOR,NO FAMILY [Primary Care Provider] - Instructions: Peripheral Edema, Unilateral Additional Instructions: Return home. Elevate your left foot 24-48 hours. Advil every 6 hours as needed for pain. Follow-up with your family doctor call tomorrow for appointment. Return for acute distress or for severe symptoms. Limited weight bearing left foot
[2017-05-06 01:54] LABS: BASOPHIL % 0.7 % (0.0-0.4); Eosinophil % 2.5 % (0.00-5.0); Granulocytes % 56.2 % (36.0-66.0); Lymphocytes % 29.8 % (24.0-44.0); Mean Corpuscular Hemoglobin 31.7 pg (26-32); Mean Platelet Volume 12.4 fl (6-9.5); Monocytes % 10.8 % (0.0-12.0); Platelet Count 103 K/mm3 (150-450); Red Blood Count 4.57 M/mm3 (4.1-5.6); Red Cell Distribution Width 13.4 % (11.5-14.0); White Blood Count 7.2 K/mm3 (4.0-10.5)
[2017-05-06] MEDS ORDERED: TORAdol 30 mg Injection IV ONE (01:59)
[2017-05-06 02:15] LABS: ALKALINE PHOSPHATASE 133 U/L (46-116); ANION GAP 10.4 MEQ/L (5-15); BLOOD UREA NITROGEN 15 mg/dL (9-20); CHLORIDE 95 mEq/L (98-107); Carbon Dioxide 32.3 mEq/L (21-32); Glucose 232 MG/DL (70-110); Potassium 4.1 mEq/L (3.5-5.1); SGOT/AST 125 U/L (15-37); SGPT/ALT 165 U/L (12-78); SODIUM 134 mEq/L (136-145); Total Protein 7.5 gm/dL (6.4-8.2)
--- NOTE | 2017-05-06 08:55 | XRAY ---
Indication: Left foot pain. Diabetes. Comparison: None 3 nonweightbearing views of the left foot demonstrates minimal osteopenia, distal tibial anterior spurring, and navicular accessory ossicle. No other bony, articular, or soft tissue abnormalities.
== END 2017-05-06 03:05 | disposition home or self-care (01) ==
LOC: ED 00:50
DX: M79.672 Pain in left foot (principal); R60.9 Edema, unspecified; R74.8 Abnormal levels of other serum enzymes; K75.9 Inflammatory liver disease, unspecified; I10 Essential (primary) hypertension; I25.2 Old myocardial infarction; E11.9 Type 2 diabetes mellitus without complications; F31.9 Bipolar disorder, unspecified; R56.9 Unspecified convulsions; Z79.899 Other long term (current) drug therapy; Z98.61 Coronary angioplasty status
CPT/HCPCS: 36415; 73630; 80053; 85025; 99281

== ENCOUNTER 2017-07-09 09:58 | Emergency (ER) | payer OTHER ==
[2017-07-09 10:18] VITALS: BP 144/90; PULSE 103; O2SAT 96
[2017-07-09] MEDS ORDERED: Sodium Chloride 0.9% 1000 ML 1,000 ML IV STA (10:32)
[2017-07-09] MEDS ORDERED: BABY ASPIRIN 81 MG CHEW PO ONE (10:32)
--- NOTE | 2017-07-09 10:49 | ERPHSYRPT ---
- History of Present Illness Time Seen by Provider: 07/09/17 10:15 Source: patient Exam Limitations: no limitations Patient Subjective Stated Complaint: pt states he is visiting in [place] and left his glucometer and insulin in [place]. states he wants hsi sugar checked. He plans to return to [place] later today to obtain medications. Triage Nursing Assessment: pt pink, warm, dry. accu check 382 upon arrival to ER. pt afebrile. Physician History: 52 y/o male with history of CAD with 90% blockage and DM comes to the ER with complaints of his glucose being high. In the ER, it is 382. Pt says he has been staying in [place] and has his medications in [place], which include levemir and novolog. Pt has been off his meds for the past 3 days. Pt says he has been having blurry vision, polydypsia and polyuria. Pt also says he has been having a cough. Of note, patient has been having occasional intermittent substernal chest pain. He describes it as pressure, 3/10, intermittent and pt has not taken any pain meds. Pt denies any shortness of breath, palpitations or dizziness. Timing/Duration: day(s) Severity: mild Modifying Factors: Improves With: nothing Associated Symptoms: chest pain Allergies/Adverse Reactions: Penicillins Allergy (Verified 07/09/17 10:18) cant remember tramadol Adverse Reaction (Mild, Verified 07/09/17 10:18) "It makes my stomach messed up" haloperidol [From Haldol] Adverse Reaction (Verified 07/09/17 10:18) muscle contractions Home Medications: Buprenorphine HCl/Naloxone HCl [Suboxone 8 mg-2 mg Sl Film] 1 film SL BID [History] Insulin Aspart [NovoLOG Insulin] 15 units SQ BID 07/09/17 [History] Insulin Detemir [Levemir] 30 unit SQ TID 07/09/17 [History] Hx Tetanus, Diphtheria Vaccination/Date Given: Yes (up to date) Hx Influenza Vaccination/Date Given: Yes Hx Pneumococcal Vaccination/Date Given: Yes Immunizations Up to Date: Yes - Review of Systems Constitutional: No Fever, No Chills Eyes: No Symptoms, Vision Changes Ears, Nose, & Throat: No Symptoms Respiratory: No Cough, No Dyspnea Cardiac: Chest Pain, No Edema, No Syncope Abdominal/Gastrointestinal: No Abdominal Pain, No Nausea, No Vomiting, No Diarrhea Genitourinary Symptoms: No Dysuria Musculoskeletal: No Back Pain, No Neck Pain Skin: No Rash Neurological: No Dizziness, No Focal Weakness, No Sensory Changes Psychological: No Symptoms Endocrine: Polyuria, Polydipsia All Other Systems: Reviewed and Negative - Past Medical History Pertinent Past Medical History: Yes Neurological History: No Pertinent History, Seizures ENT History: No Pertinent History Cardiac History: Coronary Artery Disease, Hypertension, Myocardial Infarction ( [place]) Respiratory History: No Pertinent History Endocrine Medical History: Diabetes Type II Musculoskeletal History: Arthritis GI Medical History: GERD, Hepatitis History: No Pertinent History Psycho-Social History: Anxiety, Bipolar, Depression Male Reproductive Disorders: No Pertinent History Other Medical History: CHRONIC BACK PAIN , hepatitis C - Past Surgical History Past Surgical History: Yes Neuro Surgical History: No Pertinent History Cardiac: Angioplasty, Cardiac Catheterization Respiratory: No Pertinent History Gastrointestinal: Cholecystectomy Genitourinary: No Pertinent History Musculoskeletal: Orthopedic Surgery Male Surgical History: No Pertinent History Other Surgical History: KNEE - - Social History Smoking Status: Current every day smoker How long have you smoked: 36 Exposure to second hand smoke: Yes Drug Use: marijuana Patient Lives Alone: No - Nursing Vital Signs Nursing Vital Signs: Initial Vital Signs Temperature 98.4 F 07/09/17 10:13 Pulse Rate 103 H 07/09/17 10:13 Respiratory Rate 18 07/09/17 10:13 Blood Pressure 144/90 07/09/17 10:13 O2 Sat by Pulse Oximetry 96 07/09/17 10:13 Pain Scale Pain Intensity 0 - Physical Exam General Appearance: no apparent distress, alert Eye Exam: PERRL/EOMI, eyes nml inspection Ears, Nose, Throat Exam: normal ENT inspection, TMs normal, pharynx normal, moist mucous membranes Neck Exam: normal inspection, non-tender, supple, full range of motion Respiratory Exam: normal breath sounds, lungs clear, No respiratory distress Cardiovascular Exam: regular rate/rhythm, normal heart sounds, normal peripheral pulses Gastrointestinal/Abdomen Exam: soft, normal bowel sounds, No tenderness, No mass Back Exam: normal inspection, normal range of motion, No CVA tenderness, No vertebral tenderness Extremity Exam: normal inspection, normal range of motion, pelvis stable Neurologic Exam: alert, oriented x 3, cooperative, normal mood/affect, nml cerebellar function, nml station & gait, sensation nml, No motor deficits Skin Exam: normal color, warm, dry, No rash Lymphatic Exam: No adenopathy SpO2 Interpretation: normal SpO2: 96 Oxygen Delivery: Room Air - Course Nursing assessment & vital signs reviewed: Yes EKG Interpreted by Me: RATE (HR 101), NORMAL AXIS, NORMAL INTERVALS, NORMAL QRS , Non-specific ST Changes Ordered Tests: Active Orders 24 hr Category Date Time Status Compliance Director STAT Care 07/09/17 10:33 Active EKG-ER Only STAT Care 07/09/17 10:32 Active IV Insertion STAT Care 07/09/17 10:32 Active CHEST 2 VIEWS (PA AND LAT) Stat Exams 07/09/17 10:32 Taken CHEST WITH CONTRAST [CT] Stat Exams 07/09/17 11:35 Ordered CBC W DIFF Stat Lab 07/09/17 10:35 Completed CK-Creatinine Phosphokinase Stat Lab 07/09/17 10:35 Completed CMP Stat Lab 07/09/17 10:35 Completed D-DIMER QUANTITATION Stat Lab 07/09/17 10:35 Completed PROTIME WITH INR Stat Lab 07/09/17 10:35 Completed PTT Stat Lab 07/09/17 10:35 Completed TROPONIN Q3H Lab 07/09/17 10:35 Completed TROPONIN Q3H Lab 07/09/17 13:45 Ordered TROPONIN Q3H Lab 07/09/17 16:45 Ordered TROPONIN Q3H Lab 07/09/17 19:45 Ordered TROPONIN Q3H Lab 07/09/17 22:45 Ordered Urine Triage Profile Stat Lab 07/09/17 10:32 Ordered VBG [VENOUS BLOOD GAS] Stat Lab 07/09/17 10:35 Completed Medication Summary Discontinued Medications Generic Name Dose Route Start Last Admin Trade Name Freq PRN Reason Stop Dose Admin Aspirin 324 mg 07/09/17 10:32 07/09/17 10:56 Baby Aspirin 81 Mg Chew PO 07/09/17 10:33 324 mg STAT ONE Administration Aspirin Confirm 07/09/17 10:53 Baby Aspirin 81 Mg Chew Administered 07/09/17 10:54 Dose 324 mg .ROUTE .STK-MED ONE Sodium Chloride 1,000 mls @ 999 mls/hr 07/09/17 10:32 07/09/17 10:56 Sodium Chloride 0.9% 1000 Ml IV 07/09/17 11:32 999 mls/hr .Q1H1M STA Administration Sodium Chloride Confirm 07/09/17 10:53 Sodium Chloride 0.9% 1000 Ml Administered 07/09/17 10:54 Dose 1,000 mls @ ud .ROUTE .STK-MED ONE Insulin Human Regular 10 unit 07/09/17 11:36 Novolin R IV 07/09/17 11:37 STAT ONE Lab/Rad Data: Laboratory Result Diagrams 07/09/17 10:35 07/09/17 10:35 Laboratory Results 07/09/17 07/09/17 07/09/17 Range/Units 10:35 10:35 10:35 WBC (4.0-10.5) K/mm3 RBC (4.1-5.6) M/mm3 Hgb (12.5-18.0) gm/dl Hct (42-50) % MCV (78-100) fl MCH (26-32) pg MCHC (32-36) g/dl RDW (11.5-14.0) % Plt Count (150-450) K/mm3 MPV (6-9.5) fl Gran % (36.0-66.0) % Lymphocytes % (24.0-44.0) % Monocytes % (0.0-12.0) % Eosinophils % (0.00-5.0) % Basophils % (0.0-0.4) % Basophils # (0-0.4) INR 1.49 (0.8-3.0) APTT 39.0 H (24.1-36.1) SECONDS D-Dimer 546 H* (0-500) ng/mL VBG pH 7.39 (7.32-7.42) VBG pCO2 at Pat Temp 50 (42-55) mm/Hg VBG pO2 at Pat Temp 25 (25-40) mm/Hg VBG HCO3 30.3 H* (22-28) meq/L VBG O2 Sat ([place]) 70.0 L (95-100) VBG Base Excess 4.1 H (-2.0-2.0) VBG Hemoglobin 14.9 VBG Carboxyhemoglobin 7.4 H* (0.0-6.9) % T HGB POC Potassium 4.3 (3.5-5.1) Sodium (136-145) mEq/L Potassium (3.5-5.1) mEq/L Chloride (98-107) mEq/L Carbon Dioxide (21-32) mEq/L Anion Gap (5-15) MEQ/L BUN (9-20) mg/dL Creatinine (0.55-1.30) mg/dl Estimated GFR ML/MIN Glucose (70-110) MG/DL Calcium (8.5-10.1) mg/dL Total Bilirubin (0.2-1.0) mg/dL AST (15-37) U/L ALT (12-78) U/L Alkaline Phosphatase (46-116) U/L Creatine Kinase (39-308) U/L Troponin I < 0.017 (0.000-0.056) ng/ml Serum Total Protein (6.4-8.2) gm/dL Albumin (3.4-5.0) g/dL Slides for Path Review 07/09/17 07/09/17 Range/Units 10:35 10:35 WBC 4.9 (4.0-10.5) K/mm3 RBC 4.46 (4.1-5.6) M/mm3 Hgb 14.1 (12.5-18.0) gm/dl Hct 41.7 L (42-50) % MCV 93.5 (78-100) fl MCH 31.6 (26-32) pg MCHC 33.8 (32-36) g/dl RDW 14.9 H (11.5-14.0) % Plt Count 73 L (150-450) K/mm3 MPV 13.3 H (6-9.5) fl Gran % 54.0 (36.0-66.0) % Lymphocytes % 32.3 (24.0-44.0) % Monocytes % 9.9 (0.0-12.0) % Eosinophils % 2.8 (0.00-5.0) % Basophils % 1.0 (0.0-0.4) % Basophils # 0.05 (0-0.4) INR (0.8-3.0) APTT (24.1-36.1) SECONDS D-Dimer (0-500) ng/mL VBG pH (7.32-7.42) VBG pCO2 at Pat Temp (42-55) mm/Hg VBG pO2 at Pat Temp (25-40) mm/Hg VBG HCO3 (22-28) meq/L VBG O2 Sat ([place]) (95-100) VBG Base Excess (-2.0-2.0) VBG Hemoglobin VBG Carboxyhemoglobin (0.0-6.9) % T HGB POC Potassium (3.5-5.1) Sodium 135 L (136-145) mEq/L Potassium 4.1 (3.5-5.1) mEq/L Chloride 101 (98-107) mEq/L Carbon Dioxide 30.0 (21-32) mEq/L Anion Gap 7.7 (5-15) MEQ/L BUN 8 L (9-20) mg/dL Creatinine 0.87 (0.55-1.30) mg/dl Estimated GFR > 60 ML/MIN Glucose 457 H (70-110) MG/DL Calcium 8.1 L (8.5-10.1) mg/dL Total Bilirubin 1.20 H (0.2-1.0) mg/dL AST 243 H (15-37) U/L ALT 284 H (12-78) U/L Alkaline Phosphatase 166 H (46-116) U/L Creatine Kinase 88 (39-308) U/L Troponin I (0.000-0.056) ng/ml Serum Total Protein 7.5 (6.4-8.2) gm/dL Albumin 2.3 L (3.4-5.0) g/dL Slides for Path Review YES - Progress Progress: improved Progress Note: 07/09/17 11:55 Pt has a BG over 400. No anion gap. Pt will receive NS fluids and a dose of regular insulin 10 units. Pt has an elevated d-dimer but the rest of the cardiac w/u is within normal limits. I have explained to the patient to receive a CT chest but he wants to sign out AMA. I have explained the risks of leaving AMA, including worsening chest pain, shortness of breath and possibly . 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 Follow up with your primary care doctor this week for any additional recommendations for your diabetes and chest pain.
[2017-07-09 10:52] LABS: Eosinophil % 2.8 % (0.00-5.0); Lymphocytes % 32.3 % (24.0-44.0); Mean Cell Volume 93.5 fl (78-100); Mean Corpuscular Hemoglobin 31.6 pg (26-32); Mean Platelet Volume 13.3 fl (6-9.5); Monocytes % 9.9 % (0.0-12.0); Platelet Count 73 K/mm3 (150-450); Red Blood Count 4.46 M/mm3 (4.1-5.6); Red Cell Distribution Width 14.9 % (11.5-14.0); VBG BASE EXCESS 4.1 (-2.0-2.0); VBG HCO3- 30.3 meq/L (22-28); VBG HEMOGLOBIN 14.9; VBG POTASSIUM 4.3 (3.5-5.1); VBG pH 7.39 (7.32-7.42); White Blood Count 4.9 K/mm3 (4.0-10.5)
[2017-07-09 10:53] LABS: VBG CARBOXYHEMOGLOBIN 7.4 % T HGB (0.0-6.9)
[2017-07-09] MEDS ORDERED: BABY ASPIRIN 81 MG CHEW ONE (10:53)
[2017-07-09] MEDS ORDERED: Sodium Chloride 0.9% 1000 ML 1,000 ML ONE (10:53)
[2017-07-09 11:10] LABS: ALBUMIN 2.3 g/dL (3.4-5.0); ALKALINE PHOSPHATASE 166 U/L (46-116); ANION GAP 7.7 MEQ/L (5-15); BLOOD UREA NITROGEN 8 mg/dL (9-20); CHLORIDE 101 mEq/L (98-107); Glucose 457 MG/DL (70-110); Potassium 4.1 mEq/L (3.5-5.1); SGOT/AST 243 U/L (15-37); SGPT/ALT 284 U/L (12-78); SODIUM 135 mEq/L (136-145); Total Protein 7.5 gm/dL (6.4-8.2)
[2017-07-09 11:20] LABS: INR 1.49 (0.8-3.0); PROTIME 16.6 SECONDS (8.83-12.87)
[2017-07-09] MEDS ORDERED: NovoLIN R IV ONE (11:36)
[2017-07-09] MEDS ORDERED: NovoLIN R ONE (11:54)
--- NOTE | 2017-07-09 21:13 | XRAY ---
Indication: Cough. Elevated sugar levels. Comparison: December 10, 2016. PA/lateral chest remains hyperinflated and clear. Heart is not enlarged. Bony thorax intact. Impression: Stable nonacute hyperinflated chest.
== END 2017-07-09 12:02 | disposition left against medical advice (07) ==
LOC: ED 09:58
DX: E11.8 Type 2 diabetes mellitus with unspecified complications (principal); Z79.4 Long term (current) use of insulin; R07.89 Other chest pain
CPT/HCPCS: 36000; 36415; 71020; 80053; 82550; 82805; 84484; 85025; 85379; 85610; 85730; 93005; 93041; 96360; 96372; 99284; A9270-GY

== ENCOUNTER 2017-08-15 18:11 | Emergency (ER) | payer OTHER ==
[2017-08-15] MEDS ORDERED: Sodium Chloride 0.9% 1000 ML 1,000 ML IV STA (18:33)
[2017-08-15] MEDS ORDERED: Pepcid 20 MG VIAL IV ONE ×2 (18:33→18:57)
[2017-08-15] MEDS ORDERED: Zofran 4 MG/2 ML VIAL IV ONE (18:35)
[2017-08-15 18:54] LABS: BASOPHIL % 0.6 % (0.0-0.4); Eosinophil % 2.5 % (0.00-5.0); Lymphocytes % 30.9 % (24.0-44.0); Mean Cell Volume 92.7 fl (78-100); Mean Corpuscular Hemoglobin 32.2 pg (26-32); Platelet Count 83 K/mm3 (150-450); Red Blood Count 5.47 M/mm3 (4.1-5.6); Red Cell Distribution Width 14.9 % (11.5-14.0)
[2017-08-15] MEDS ORDERED: Zofran 4 MG/2 ML VIAL ONE (18:56)
[2017-08-15] MEDS ORDERED: Sodium Chloride 0.9% 1000 ML 1,000 ML ONE (18:57)
--- NOTE | 2017-08-15 18:58 | ERPHSYRPT ---
- History of Present Illness Source: patient Exam Limitations: no limitations Patient Subjective Stated Complaint: PT REPORTS ABD PAIN-CHEST PAIN BEGINNING 4 DAYS AGO-STATES HE HAS BEEN VOMITING-VOMITED X 4 TODAY-DENIES DIARRHEA-STATES THE LAST TIME HE CHECKED HIS FSBS WAS 2 DAYS AGO ET IT READ HIGH Triage Nursing Assessment: PT FLUSHED WARM ET DRY UPON ARRIVAL-PT SPEAKING IN COMPLETE SENTENCES BUT DOES GET WINDED-NO RETRACTIONS NOTED-PT AMBULATORY WITH NO LIMP NOTED Timing/Duration: today Activities at Onset: rest Quality: sharpness Location: substernal Chest Pain Radiation: neck Severity of Pain-Max: moderate Severity of Pain-Current: mild Modifying Factors: Improves With: coughing (worsens), rest (improves) Nitro Today/Relief: no nitro taken today Aspirin Treatment Today: no aspirin today Associated Symptoms: nausea, vomiting, abdominal pain, shortness of breath, chest pain, loss of appetite, weakness, No fever Prior Chest Pain/Cardiac Workup: cardiac cath, heart attack Hx Tetanus, Diphtheria Vaccination/Date Given: Yes Hx Influenza Vaccination/Date Given: Yes Hx Pneumococcal Vaccination/Date Given: Yes Immunizations Up to Date: Yes <WILMA CORNELIUS - Last Filed: 08/15/17 18:49> <JABIER GARCES - Last Filed: 08/16/17 00:05> - History of Present Illness Time Seen by Provider: 08/15/17 18:35 Physician History: Pt. is homeless and presents with chest and abdominal pain. States abdominal pain for past 3-4 days, epigastric/periumbilical area, initially intermittent but now constant, sharp, localized and assoc. with N/V X 4 today. Pt. also with substernal CP that began today at 11 AM, sharp radiating to neck/L shoulder , assoc. with SOB, dizziness, weakness, but no diaphoresis, palpitations, diarrhea, fever, chills or urinary symptoms. Pt. is to be taking HBP and DM meds, but have not been taking as prescribed. Pt. reports having mild CA in 2011 but had no stents or any other procedures. Pt. also taking Suboxone from his pain MD. Also admits to taking Morphine IV 90mg today obtained from someone else. Also admits to marijuana use but no alcohol (WILMA CORNELIUS) Allergies/Adverse Reactions: Penicillins Allergy (Verified 08/15/17 18:14) cant remember tramadol Adverse Reaction (Mild, Verified 08/15/17 18:14) "It makes my stomach messed up" haloperidol [From Haldol] Adverse Reaction (Verified 08/15/17 18:14) muscle contractions Home Medications: Buprenorphine HCl/Naloxone HCl [Suboxone 8 mg-2 mg Sl Film] 1 film SL BID [History] Insulin Aspart [NovoLOG Insulin] 15 units SQ BID 07/09/17 [History] Insulin Detemir [Levemir] 30 unit SQ TID 07/09/17 [History] - Review of Systems Constitutional: Fatigue, Weakness, No Fever, No Chills Eyes: No Symptoms Ears, Nose, & Throat: No Symptoms Respiratory: Cough (productive white sputum), Dyspnea, Dyspnea on Exertion (ORTIZ) Cardiac: Chest Pain, No Edema, No Palpitations, No Syncope Abdominal/Gastrointestinal: Abdominal Pain, Nausea, Vomiting, No Diarrhea, No Hematemesis Genitourinary Symptoms: No Symptoms, No Dysuria Musculoskeletal: No Symptoms, No Back Pain, No Neck Pain Skin: No Symptoms, No Rash Neurological: No Symptoms, No Dizziness, No Focal Weakness, No Sensory Changes Psychological: No Symptoms Endocrine: No Symptoms All Other Systems: Reviewed and Negative <WILMA CORNELIUS - Last Filed: 08/15/17 18:49> - Past Medical History Pertinent Past Medical History: Yes Neurological History: No Pertinent History, Seizures ENT History: No Pertinent History Cardiac History: Coronary Artery Disease, Hypertension, Myocardial Infarction ( CA) Respiratory History: No Pertinent History Endocrine Medical History: Diabetes Type II Musculoskeletal History: Arthritis GI Medical History: GERD, Hepatitis History: No Pertinent History Psycho-Social History: Anxiety, Bipolar, Depression Male Reproductive Disorders: No Pertinent History Other Medical History: CHRONIC BACK PAIN , hepatitis C - Past Surgical History Past Surgical History: Yes Neuro Surgical History: No Pertinent History Cardiac: Angioplasty, Cardiac Catheterization Respiratory: No Pertinent History Gastrointestinal: Cholecystectomy Genitourinary: No Pertinent History Musculoskeletal: Orthopedic Surgery Male Surgical History: No Pertinent History Other Surgical History: KNEE - - Social History Smoking Status: Current every day smoker How long have you smoked: 36 Exposure to second hand smoke: Yes Drug Use: marijuana Patient Lives Alone: No <WILMA CORNELIUS - Last Filed: 10/16/17 18:49> - Physical Exam General Appearance: mild distress, alert Eye Exam: PERRL/EOMI, eyes nml inspection Ears, Nose, Throat Exam: normal ENT inspection, moist mucous membranes Neck Exam: normal inspection, non-tender, supple Respiratory Exam: normal breath sounds, lungs clear, No respiratory distress Cardiovascular Exam: regular rate/rhythm, normal heart sounds, No edema Gastrointestinal/Abdomen Exam: soft, tenderness (epigastric/periumbilical), No distention, No mass Back Exam: normal inspection, No CVA tenderness, No vertebral tenderness Extremity Exam: normal inspection, normal range of motion Neurologic Exam: alert, oriented x 3, cooperative, normal mood/affect, nml cerebellar function, sensation nml, No motor deficits Skin Exam: normal color, warm, dry Lymphatic Exam: No adenopathy SpO2: 98 Oxygen Delivery: Room Air <WILMA CORNELIUS - Last Filed: 08/15/17 18:49> - Nursing Vital Signs Nursing Vital Signs: Initial Vital Signs Temperature 97.9 F 08/15/17 18:19 Pulse Rate 86 08/15/17 18:19 Respiratory Rate 20 08/15/17 18:19 Blood Pressure 132/89 08/15/17 18:19 O2 Sat by Pulse Oximetry 98 08/15/17 18:19 Pain Scale Pain Intensity 8 - Course Nursing assessment & vital signs reviewed: Yes EKG Interpreted by Me: RATE (85), Sinus Rhythm, NORMAL AXIS, NORMAL INTERVALS, NORMAL QRS, Non-specific ST Changes <WILMA CORNELIUS - Last Filed: 08/15/17 18:49> - Radiology Exams Chest X-ray Interpretation: Interpreted by me, No Pneumonia - CT Exams Abdomen/Pelvis CT Interpretation: Discussed w/radiologist (DEMONSTRATES CIRRHOTIC LIVER WITH MILD ABD/PEL ASCITES & 13 CM SPLENOMEGALY. SMALL BOWEL WALL THICKENING IN LEFT ABDOMEN PROBABLY ENTERITIS. NORMAL APPENDIX.) Chest CT Interpretation: Discussed w/radiologist (NO LARGE CENTRAL PE OR CARDIOPULMONARY FINDINGS.) - Radiology Ultrasound Exam Venous Lower Extremity Ultrasound: Other (TECH REPORT: NO DVT IN EITHER LOWER EXTREMITY.) <JABIER GARCES - Last Filed: 08/16/17 00:05> Ordered Tests: Active Orders 24 hr Category Date Time Status Enrollment Advisor STAT Care 08/15/17 18:34 Active Clean Catch Urine Specimen STAT Care 08/15/17 18:33 Active Clean Catch Urine Specimen STAT Care 08/15/17 18:36 Active EKG-ER Only STAT Care 08/15/17 18:33 Active IV Insertion STAT Care 08/15/17 18:33 Active ABDOMEN AND PELVIS W CONTRAST [CT] Stat Exams 08/15/17 20:18 Taken CHEST 1 VIEW (PORTABLE) Stat Exams 08/15/17 18:34 Taken CHEST WITH CONTRAST [CT] Stat Exams 08/15/17 20:19 Taken VENOUS BILATERAL EXTREMITY [US] Stat Exams 08/15/17 20:19 Taken AMYLASE Stat Lab 08/15/17 18:50 Completed BMP Stat Lab 08/15/17 18:50 Completed CBC W DIFF Stat Lab 08/15/17 18:50 Completed CK-Creatinine Phosphokinase Stat Lab 08/15/17 18:50 Completed D-DIMER QUANTITATION Stat Lab 08/15/17 18:50 Completed Hepatic Function Panel Stat Lab 08/15/17 18:50 Completed LIPASE Stat Lab 08/15/17 18:50 Completed TROPONIN Q3H Lab 08/15/17 18:50 Completed TROPONIN Q3H Lab 08/15/17 22:09 Completed TROPONIN Q3H Lab 08/16/17 00:45 Ordered TROPONIN Q3H Lab 08/16/17 03:45 Ordered TROPONIN Q3H Lab 08/16/17 06:45 Ordered UA W/RFX UR CULTURE Stat Lab 08/15/17 23:26 Completed Urine Triage Profile Routine Lab 08/15/17 23:34 Completed Medication Summary Discontinued Medications Generic Name Dose Route Start Last Admin Trade Name Freq PRN Reason Stop Dose Admin Famotidine 20 mg 08/15/17 18:33 08/15/17 19:03 Pepcid 20 Mg Vial IV 08/15/17 18:34 20 mg STAT ONE Administration Famotidine Confirm 08/15/17 18:57 Pepcid 20 Mg Vial Administered 08/15/17 18:58 Dose 20 mg IV .STK-MED ONE Fentanyl Citrate 50 mcg 08/15/17 20:20 08/15/17 20:35 Sublimaze 100 Mcg/2 Ml IV 08/15/17 20:21 50 mcg STAT ONE Administration Fentanyl Citrate Confirm 08/15/17 20:34 Sublimaze 100 Mcg/2 Ml Administered 08/15/17 20:35 Dose 100 mcg .ROUTE .STK-MED ONE Sodium Chloride 1,000 mls @ 999 mls/hr 08/15/17 18:33 08/15/17 19:00 Sodium Chloride 0.9% 1000 Ml IV 08/15/17 19:33 999 mls/hr .Q1H1M STA Administration Sodium Chloride Confirm 08/15/17 18:57 Sodium Chloride 0.9% 1000 Ml Administered 08/15/17 18:58 Dose 1,000 mls @ ud .ROUTE .STK-MED ONE Ondansetron HCl 4 mg 08/15/17 18:35 08/15/17 19:01 Zofran 4 Mg/2 Ml Vial IV 08/15/17 18:36 4 mg STAT ONE Administration Ondansetron HCl Confirm 08/15/17 18:56 Zofran 4 Mg/2 Ml Vial Administered 08/15/17 18:57 Dose 4 mg .ROUTE .STK-MED ONE Promethazine HCl 12.5 mg 08/15/17 20:20 08/15/17 20:35 Phenergan 25 Mg Inj IV 08/15/17 20:21 12.5 mg STAT ONE Administration Promethazine HCl Confirm 08/15/17 20:33 Phenergan 25 Mg Inj Administered 08/15/17 20:34 Dose 25 mg .ROUTE .STK-MED ONE Lab/Rad Data: Laboratory Result Diagrams 08/15/17 18:50 08/15/17 18:50 Laboratory Results 08/15/17 08/15/17 08/15/17 Range/Units 23:34 23:26 22:09 WBC (4.0-10.5) K/mm3 RBC (4.1-5.6) M/mm3 Hgb (12.5-18.0) gm/dl Hct (42-50) % MCV (78-100) fl MCH (26-32) pg MCHC (32-36) g/dl RDW (11.5-14.0) % Plt Count (150-450) K/mm3 MPV (6-9.5) fl Gran % (36.0-66.0) % Lymphocytes % (24.0-44.0) % Monocytes % (0.0-12.0) % Eosinophils % (0.00-5.0) % Basophils % (0.0-0.4) % Basophils # (0-0.4) D-Dimer (0-500) ng/mL Sodium (136-145) mEq/L Potassium (3.5-5.1) mEq/L Chloride (98-107) mEq/L Carbon Dioxide (21-32) mEq/L Anion Gap (5-15) MEQ/L BUN (9-20) mg/dL Creatinine (0.55-1.30) mg/dl Estimated GFR ML/MIN Glucose (70-110) MG/DL Calcium (8.5-10.1) mg/dL Total Bilirubin (0.2-1.0) mg/dL Direct Bilirubin (0.0-0.2) MG/DL AST (15-37) U/L ALT (12-78) U/L Alkaline Phosphatase (46-116) U/L Creatine Kinase (39-308) U/L Troponin I < 0.017 (0.000-0.056) ng/ml Serum Total Protein (6.4-8.2) gm/dL Albumin (3.4-5.0) g/dL Amylase (25-115) U/L Lipase (73-393) U/L Ur Collection Type CLEAN CATCH Urine Color DARK YELLOW (YELLOW) Urine Appearance CLEAR (CLEAR) Urine pH 5.0 (5-6) Ur Specific [place] 1.015 (1.005-1.025) Urine Protein NEGATIVE (Negative) Urine Ketones NEGATIVE (NEGATIVE) Urine Blood NEGATIVE (0-5) Faisal/ul Urine Nitrite NEGATIVE (NEGATIVE) Urine Bilirubin NEGATIVE (NEGATIVE) Urine Urobilinogen 4 (0-1) mg/dL Ur Leukocyte Esterase NEGATIVE (NEGATIVE) Urine Culture Reflexed NO (NO) Urine Glucose 500 (NEGATIVE) mg/dL Urine Opiates Level POS. (NEGATIVE) Ur Methadone NEG. (NEGATIVE) Urine Barbiturates NEG. (NEGATIVE) Ur Phencyclidine (PCP) NEG. (NEGATIVE) Urine Amphetamine NEG. (NEGATIVE) U Benzodiazepine Level NEG. (NEGATIVE) Urine Cocaine NEG. (NEGATIVE) Urine Marijuana (THC) POS. (NEGATIVE) Specimen Received [id number] 08/15/17 08/15/17 08/15/17 Range/Units 18:50 18:50 18:50 WBC (4.0-10.5) K/mm3 RBC (4.1-5.6) M/mm3 Hgb (12.5-18.0) gm/dl Hct (42-50) % MCV (78-100) fl MCH (26-32) pg MCHC (32-36) g/dl RDW (11.5-14.0) % Plt Count (150-450) K/mm3 MPV (6-9.5) fl Gran % (36.0-66.0) % Lymphocytes % (24.0-44.0) % Monocytes % (0.0-12.0) % Eosinophils % (0.00-5.0) % Basophils % (0.0-0.4) % Basophils # (0-0.4) D-Dimer 1710 H* (0-500) ng/mL Sodium 134 L (136-145) mEq/L Potassium 3.8 (3.5-5.1) mEq/L Chloride 97 L (98-107) mEq/L Carbon Dioxide 30.9 (21-32) mEq/L Anion Gap 9.6 (5-15) MEQ/L BUN 9 (9-20) mg/dL Creatinine 0.82 (0.55-1.30) mg/dl Estimated GFR > 60 ML/MIN Glucose 254 H (70-110) MG/DL Calcium 8.6 (8.5-10.1) mg/dL Total Bilirubin 2.50 H (0.2-1.0) mg/dL Direct Bilirubin 1.12 H (0.0-0.2) MG/DL AST 189 H (15-37) U/L ALT 213 H (12-78) U/L Alkaline Phosphatase 207 H (46-116) U/L Creatine Kinase 83 (39-308) U/L Troponin I < 0.017 (0.000-0.056) ng/ml Serum Total Protein 9.6 H (6.4-8.2) gm/dL Albumin 2.9 L (3.4-5.0) g/dL Amylase 33 (25-115) U/L Lipase 62 L (73-393) U/L Ur Collection Type Urine Color (YELLOW) Urine Appearance (CLEAR) Urine pH (5-6) Ur Specific [place] (1.005-1.025) Urine Protein (Negative) Urine Ketones (NEGATIVE) Urine Blood (0-5) Faisal/ul Urine Nitrite (NEGATIVE) Urine Bilirubin (NEGATIVE) Urine Urobilinogen (0-1) mg/dL Ur Leukocyte Esterase (NEGATIVE) Urine Culture Reflexed (NO) Urine Glucose (NEGATIVE) mg/dL Urine Opiates Level (NEGATIVE) Ur Methadone (NEGATIVE) Urine Barbiturates (NEGATIVE) Ur Phencyclidine (PCP) (NEGATIVE) Urine Amphetamine (NEGATIVE) U Benzodiazepine Level (NEGATIVE) Urine Cocaine (NEGATIVE) Urine Marijuana (THC) (NEGATIVE) Specimen Received 08/15/17 Range/Units 18:50 WBC 8.0 (4.0-10.5) K/mm3 RBC 5.47 (4.1-5.6) M/mm3 Hgb 17.6 (12.5-18.0) gm/dl Hct 50.7 H (42-50) % MCV 92.7 (78-100) fl MCH 32.2 H (26-32) pg MCHC 34.7 (32-36) g/dl RDW 14.9 H (11.5-14.0) % Plt Count 83 L (150-450) K/mm3 MPV 12.0 H (6-9.5) fl Gran % 59.0 (36.0-66.0) % Lymphocytes % 30.9 (24.0-44.0) % Monocytes % 7.0 (0.0-12.0) % Eosinophils % 2.5 (0.00-5.0) % Basophils % 0.6 (0.0-0.4) % Basophils # 0.05 (0-0.4) D-Dimer (0-500) ng/mL Sodium (136-145) mEq/L Potassium (3.5-5.1) mEq/L Chloride (98-107) mEq/L Carbon Dioxide (21-32) mEq/L Anion Gap (5-15) MEQ/L BUN (9-20) mg/dL Creatinine (0.55-1.30) mg/dl Estimated GFR ML/MIN Glucose (70-110) MG/DL Calcium (8.5-10.1) mg/dL Total Bilirubin (0.2-1.0) mg/dL Direct Bilirubin (0.0-0.2) MG/DL AST (15-37) U/L ALT (12-78) U/L Alkaline Phosphatase (46-116) U/L Creatine Kinase (39-308) U/L Troponin I (0.000-0.056) ng/ml Serum Total Protein (6.4-8.2) gm/dL Albumin (3.4-5.0) g/dL Amylase (25-115) U/L Lipase (73-393) U/L Ur Collection Type Urine Color (YELLOW) Urine Appearance (CLEAR) Urine pH (5-6) Ur Specific [place] (1.005-1.025) Urine Protein (Negative) Urine Ketones (NEGATIVE) Urine Blood (0-5) Faisal/ul Urine Nitrite (NEGATIVE) Urine Bilirubin (NEGATIVE) Urine Urobilinogen (0-1) mg/dL Ur Leukocyte Esterase (NEGATIVE) Urine Culture Reflexed (NO) Urine Glucose (NEGATIVE) mg/dL Urine Opiates Level (NEGATIVE) Ur Methadone (NEGATIVE) Urine Barbiturates (NEGATIVE) Ur Phencyclidine (PCP) (NEGATIVE) Urine Amphetamine (NEGATIVE) U Benzodiazepine Level (NEGATIVE) Urine Cocaine (NEGATIVE) Urine Marijuana (THC) (NEGATIVE) Specimen Received - Progress Air Movement: good Counseled pt/family regarding: diagnosis <WILMA CORNELIUS - Last Filed: 08/15/17 18:49> <JABIER GARCES - Last Filed: 08/16/17 00:05> - Progress Progress Note: 08/15/17 19:04 Pt. given Pepci/Zofran (WILMA CORNELIUS) 08/15/17 20:[address] GARCES 2015: PERRL, EOMI, TM'S NOT INJECTED, PHARYNX PINK, LUNGS CLEAR, NO CARDIAC RUB, ABDOMINAL B.S. NORMAL WITH MILD RLQ ABDOMINAL TENDERNESS WITHOUT GUARDING, NO ANKLE EDEMA, BILATERAL CALF TENDERNESS, ALERT & COOPERATIVE. (JABIER GARCES) <WILMA CORNELIUS - Last Filed: 08/15/17 18:49> - Departure Time of Disposition: 00:05 Departure Disposition: Home Critical Care Time: No <JABIER GARCES - Last Filed: 08/16/17 00:05> - Departure Clinical Impression: Chest pain, Abdominal pain, CHEST PAIN, BILATERAL CALF TENDERNESS, MARIJUANA USE, CIRRHOSIS Condition: Stable Referrals: DOCTOR,NO FAMILY [Primary Care Provider] - Instructions: Chest Pain, Abdominal Pain-Adult Additional Instructions: FOLLOW UP WITH PRIVATE DOCTOR LATER TODAY.
[2017-08-15 19:28] LABS: ALBUMIN 2.9 g/dL (3.4-5.0); ALKALINE PHOSPHATASE 207 U/L (46-116); ANION GAP 9.6 MEQ/L (5-15); BLOOD UREA NITROGEN 9 mg/dL (9-20); CHLORIDE 97 mEq/L (98-107); Carbon Dioxide 30.9 mEq/L (21-32); Direct Bilirubin 1.12 MG/DL (0.0-0.2); Glucose 254 MG/DL (70-110); LIPASE 62 U/L (73-393); Potassium 3.8 mEq/L (3.5-5.1); SGOT/AST 189 U/L (15-37); SGPT/ALT 213 U/L (12-78); SODIUM 134 mEq/L (136-145); Total Protein 9.6 gm/dL (6.4-8.2)
[2017-08-15] MEDS ORDERED: SUBLIMAZE 100 MCG/2 ML IV ONE (20:20)
[2017-08-15] MEDS ORDERED: Phenergan 25 MG INJ IV ONE (20:20)
[2017-08-15] MEDS ORDERED: Phenergan 25 MG INJ ONE (20:33)
[2017-08-15] MEDS ORDERED: SUBLIMAZE 100 MCG/2 ML ONE (20:34)
[2017-08-15 23:28] LABS: ADD URINE CULTURE? NO (NO); Bilirubin NEGATIVE (NEGATIVE); Blood NEGATIVE Ery/ul (0-5); COMPLETE URINE MICROSCOPIC? NO; Collection Type CLEAN CATCH; Glucose 500 mg/dL (NEGATIVE); Leukocyte Esterase NEGATIVE (NEGATIVE)
[2017-08-16 00:35] VITALS: BP 128/81; PULSE 88; O2SAT 98
--- NOTE | 2017-08-16 08:26 | XRAY ---
Indication: Chest pain. Comparison: July 09, 2017. Portable chest again demonstrates normal heart and lungs. Bony thorax intact. No new/acute findings.
--- NOTE | 2017-08-16 08:28 | XRAY ---
Indication: Elevated d-dimer. Two-dimensional sonogram and color Doppler imaging of the major venous vessels of the left and right leg was performed.. Comparison: Right leg venous ultrasound May 07, 2011. No thrombus seen in the examined deep venous vessels of the left and right leg including greater saphenous veins. Veins demonstrate normal compressibility. Venous waveforms are normal with and without augmentation. Impression: Left and right legs negative for DVT. Comment: Preliminary report was given.
--- NOTE | 2017-08-16 08:39 | XRAY ---
Indication: Chest pain. Multiple contiguous axial images obtained through the chest using 80 cc Isovue 370 contrast. Comparison: None Lungs are inflated with mild bibasilar atelectasis/scarring. 8 mm well-circumscribed noncalcified nodule seen in the inferior left upper lobe adjacent to the fissure probably granulomatous in this demographic. No infiltrate, consolidation, or effusion. Heart is not enlarged. No central pulmonary embolus. Aorta is normal in course and caliber. No pathologic mediastinal/hilar lymphadenopathy. Small hiatal hernia. Bony thorax intact with minimal degenerative changes throughout the spine. Incidental bilateral gynecomastia. CT abdomen reported separately. Impression: 1. No acute cardiopulmonary abnormalities or central pulmonary embolus. 2. Left lower lobe well-circumscribed noncalcified nodule probably granulomatous. Consider follow-up per Fleischner guidelines. 3. Incidental hiatal hernia and gynecomastia. CT DI 20.00
--- NOTE | 2017-08-16 08:47 | XRAY ---
Indication: Abdomen pain. Multiple contiguous axial images obtained through the abdomen and pelvis using 80 cc Isovue 370 contrast. Comparison: None CT chest reported separately. Cirrhotic appearing liver with mild abdominal/pelvic ascites. No walled off fluid collection or free air. 11 mm hepatic hemangioma. Previous cholecystectomy. Spleen is enlarged measuring 13 cm in greatest axial dimension. Small hiatal hernia with distal esophageal varices. Noncontrasted stomach and bowel loops appear nonobstructed. Several small bowel loops in left abdomen demonstrates bowel wall thickening suggestive of enteritis. Normal appendix. Remaining pancreas, adrenal glands, kidneys, ureters, and bladder appear unremarkable. Mild aortoiliac calcifications. No AAA or pathologic retroperitoneal lymphadenopathy. Osseous structures intact with mild degenerative changes throughout the spine and thoracolumbar Schmorl nodes. Small ascites filled left inguinal hernia. Impression: 1. Cirrhosis with abdomen/pelvic ascites, splenomegaly, and distal esophageal varices. 2. Left abdomen small bowel wall thickening. Rule out enteritis. 3. Small hepatic hemangioma. 4. Ascites filled left inguinal hernia. CT DI 20.00
== END 2017-08-16 00:35 | disposition home or self-care (01) ==
LOC: ED 18:11
DX: R07.89 Other chest pain (principal); R10.9 Unspecified abdominal pain; M79.662 Pain in left lower leg; M79.661 Pain in right lower leg; F12.90 Cannabis use, unspecified, uncomplicated; K74.60 Unspecified cirrhosis of liver
CPT/HCPCS: 36000; 36415; 71010; 71260; 74177; 80048; 80076; 80307; 81002; 82150; 82550; 82962; 83690; 84484; 85025; 85379; 93005; 93041; 93970; 96360; 96374; 96375; 99285; J2405; J2550; J3010

== ENCOUNTER 2017-08-19 15:31 | Emergency (ER) | payer OTHER ==
[2017-08-19] MEDS ORDERED: Adacel Vial IM ONE ×2 (15:53→16:08)
[2017-08-19] MEDS ORDERED: MOTRIN 400 MG PO ONE (15:53)
--- NOTE | 2017-08-19 16:00 | ERPHSYRPT ---
- History of Present Illness Time Seen by Provider: 08/19/17 15:47 Source: patient Patient Subjective Stated Complaint: states fell two days ago while walking home from the hospital. injured right hand Triage Nursing Assessment: slight swelling noted to right hand. tender to touch. good cap refill. Physician History: CC: right hand pain Hx: 52 y/o patient with hx of chronic pain syndrome and drug use. He has right hand pain which is rather severe. He fell a couple of days ago but unsure if he injured the hand. He has hx of cellulitis. No abrasion. Last tetanus vaccine 5 years ago. He has some pain and swelling in right hand. Extremities Pain Location: hand: right Allergies/Adverse Reactions: Penicillins Allergy (Verified 08/19/17 15:44) cant remember tramadol Adverse Reaction (Mild, Verified 08/19/17 15:44) "It makes my stomach messed up" haloperidol [From Haldol] Adverse Reaction (Verified 08/19/17 15:44) muscle contractions Home Medications: Buprenorphine HCl/Naloxone HCl [Suboxone 8 mg-2 mg Sl Film] 1 film SL BID [History] Insulin Aspart [NovoLOG Insulin] 15 units SQ BID 07/09/17 [History] Insulin Detemir [Levemir] 30 unit SQ TID 07/09/17 [History] Hx Tetanus, Diphtheria Vaccination/Date Given: Yes Hx Influenza Vaccination/Date Given: Yes Hx Pneumococcal Vaccination/Date Given: Yes - Review of Systems Constitutional: No Fever, No Chills Cardiac: No Chest Pain Abdominal/Gastrointestinal: No Abdominal Pain, No Nausea, No Vomiting Musculoskeletal: Joint Pain (right hand), No Back Pain, No Neck Pain Neurological: No Focal Weakness, No Headache, No Parasthesia All Other Systems: Reviewed and Negative - Past Medical History Pertinent Past Medical History: Yes Neurological History: No Pertinent History, Seizures ENT History: No Pertinent History Cardiac History: Coronary Artery Disease, Hypertension, Myocardial Infarction ( [place]) Respiratory History: No Pertinent History Endocrine Medical History: Diabetes Type II Musculoskeletal History: Arthritis GI Medical History: GERD, Hepatitis History: No Pertinent History Psycho-Social History: Anxiety, Bipolar, Depression Male Reproductive Disorders: No Pertinent History Other Medical History: CHRONIC BACK PAIN , hepatitis C - Past Surgical History Past Surgical History: Yes Neuro Surgical History: No Pertinent History Cardiac: Angioplasty, Cardiac Catheterization Respiratory: No Pertinent History Gastrointestinal: Cholecystectomy Genitourinary: No Pertinent History Musculoskeletal: Orthopedic Surgery Male Surgical History: No Pertinent History Other Surgical History: KNEE - - Social History Smoking Status: Current every day smoker How long have you smoked: 36 Exposure to second hand smoke: No Drug Use: marijuana Patient Lives Alone: No - Nursing Vital Signs Nursing Vital Signs: Initial Vital Signs Temperature 97.9 F 08/19/17 15:39 Pulse Rate 105 H 08/19/17 15:39 Respiratory Rate 16 08/19/17 15:39 Blood Pressure 110/81 08/19/17 15:39 O2 Sat by Pulse Oximetry 96 08/19/17 15:39 Pain Scale Pain Intensity 8 - Physical Exam General Appearance: alert Eyes, Ears, Nose, Throat Exam: normal ENT inspection, moist mucous membranes Neck Exam: normal inspection, non-tender, supple Cardiovascular/Respiratory Exam: normal breath sounds, regular rate/rhythm Abdominal Exam: non-tender, soft Neuro/Tendon Exam: normal sensation, normal motor functions Mental Status Exam: alert, oriented x 3, cooperative Skin Exam: warm, dry SpO2 Interpretation: normal SpO2: 96 Oxygen Delivery: Room Air Comments: Right hand dorsal has swelling and tenderness that seems to be exquisite. Mild warmth. No lymphangitis. Pulse intact. No drng. - Course Nursing assessment & vital signs reviewed: Yes - Radiology Exams right hand X-ray Interpretation: Teleradiologist Report, No Fracture (soft tissu swelling) Ordered Tests: Active Orders 24 hr Category Date Time Status Splint STAT Care 08/19/17 17:17 Active HAND (MINIMUM 3 VIEWS) Stat Exams 08/19/17 15:51 Completed CBC W DIFF Stat Lab 08/19/17 16:30 Completed CMP Stat Lab 08/19/17 16:30 Completed Erythrocyte Sedimentation Rate Stat Lab 08/19/17 16:30 Completed Uric Acid Stat Lab 08/19/17 16:30 Completed Medication Summary Generic Name Dose Route Start Last Admin Trade Name Freq PRN Reason Stop Dose Admin Insulin Aspart 8 unit 08/19/17 17:18 Novolog Insulin SQ 08/19/17 17:19 STAT ONE Discontinued Medications Generic Name Dose Route Start Last Admin Trade Name Freq PRN Reason Stop Dose Admin Diphtheria/Tetanus/Acell Pertussis 0.5 ml 08/19/17 15:53 10/20/17 16:10 Adacel Vial IM 08/19/17 15:54 0.5 ml .ONCE ONE Administration Diphtheria/Tetanus/Acell Pertussis Confirm 08/19/17 16:08 Adacel Vial Administered 08/19/17 16:09 Dose 0.5 ml IM .STK-MED ONE Doxycycline Hyclate 100 mg 08/19/17 17:16 Vibramycin 100 Mg PO 08/19/17 17:17 STAT ONE Ibuprofen 400 mg 08/19/17 15:53 08/19/17 16:11 Motrin 400 Mg PO 08/19/17 15:54 400 mg STAT ONE Administration Ibuprofen Confirm 08/19/17 16:07 Motrin 400 Mg Administered 08/19/17 16:08 Dose 400 mg .ROUTE .STK-MED ONE Lab/Rad Data: Laboratory Result Diagrams 08/19/17 16:30 08/19/17 16:30 Laboratory Results 08/19/17 08/19/17 Range/Units 16:30 16:30 WBC 9.3 (4.0-10.5) K/mm3 RBC 4.71 (4.1-5.6) M/mm3 Hgb 15.1 (12.5-18.0) gm/dl Hct 44.3 (42-50) % MCV 94.1 (78-100) fl MCH 32.1 H (26-32) pg MCHC 34.1 (32-36) g/dl RDW 14.9 H (11.5-14.0) % Plt Count 84 L (150-450) K/mm3 MPV 12.2 H (6-9.5) fl Gran % 71.2 H (36.0-66.0) % Lymphocytes % 19.1 L (24.0-44.0) % Monocytes % 8.1 (0.0-12.0) % Eosinophils % 1.1 (0.00-5.0) % Basophils % 0.5 (0.0-0.4) % Basophils # 0.05 (0-0.4) ESR 11 (0-15) mm/hr Sodium 134 L (136-145) mEq/L Potassium 4.0 (3.5-5.1) mEq/L Chloride 97 L (98-107) mEq/L Carbon Dioxide 31.8 (21-32) mEq/L Anion Gap 8.7 (5-15) MEQ/L BUN 11 (9-20) mg/dL Creatinine 0.86 (0.55-1.30) mg/dl Estimated GFR > 60 ML/MIN Glucose 345 H (70-110) MG/DL Uric Acid 2.5 L (3.5-7.2) mg/dL Calcium 8.4 L (8.5-10.1) mg/dL Total Bilirubin 1.70 H (0.2-1.0) mg/dL AST 194 H (15-37) U/L ALT 184 H (12-78) U/L Alkaline Phosphatase 185 H (46-116) U/L Serum Total Protein 7.6 (6.4-8.2) gm/dL Albumin 2.5 L (3.4-5.0) g/dL - Progress Progress Note: 08/19/17 17:19 pt was given motrin. He has DM and uses insulin at home. He now reports shooting with an insulin needle in the hand but did not inject. No FB on xray. Does not appear to be abscess at this time but could be some early infection. No sign of gout on labs. ESR low. He has known hepatitis. Will try splint, Rx doxy as allergic to PCN, and advised follow up. It worsens may need to see hand surgeon. He has Rx for suboxone but states it was stolen. Last visit he took a lot of morphine. Therefore motrin given here today. Advised he watch and manage sugars at home as well. Counseled pt/family regarding: lab results, diagnosis, need for follow-up, rad results - Departure Time of Disposition: 17:20 Departure Disposition: Home Clinical Impression: Diabetes, Cellulitis of hand, right, Contusion of right hand Condition: Stable Critical Care Time: No Referrals: DOCTOR,NO FAMILY [Primary Care Provider] - Instructions: Cellulitis -- Adult Prescriptions: Ibuprofen 600 mg PO Q6H PRN PRN #15 tablet PRN Reason: Pain Doxycycline Hyclate 100 mg [Vibramycin 100 MG] 1 tab PO BID #20 tab
[2017-08-19] MEDS ORDERED: MOTRIN 400 MG ONE (16:07)
--- NOTE | 2017-08-19 16:34 | XRAY ---
Indication: Pain and swelling. No known injury. Comparison: None 3 views of the right hand limited by 2nd/3rd finger rings. Mild soft tissue swelling near the proximal 5th metacarpal posteriorly. No other bony, articular, or soft tissue abnormalities.
[2017-08-19 16:36] VITALS: PULSE 104
[2017-08-19 16:37] LABS: BASOPHIL % 0.5 % (0.0-0.4); Eosinophil % 1.1 % (0.00-5.0); Granulocytes % 71.2 % (36.0-66.0); Lymphocytes % 19.1 % (24.0-44.0); Mean Cell Volume 94.1 fl (78-100); Mean Corpuscular Hemoglobin 32.1 pg (26-32); Mean Platelet Volume 12.2 fl (6-9.5); Monocytes % 8.1 % (0.0-12.0); Platelet Count 84 K/mm3 (150-450); Red Blood Count 4.71 M/mm3 (4.1-5.6); Red Cell Distribution Width 14.9 % (11.5-14.0); White Blood Count 9.3 K/mm3 (4.0-10.5)
[2017-08-19 17:00] LABS: ALBUMIN 2.5 g/dL (3.4-5.0); ALKALINE PHOSPHATASE 185 U/L (46-116); ANION GAP 8.7 MEQ/L (5-15); BLOOD UREA NITROGEN 11 mg/dL (9-20); CHLORIDE 97 mEq/L (98-107); Carbon Dioxide 31.8 mEq/L (21-32); Glucose 345 MG/DL (70-110); SGOT/AST 194 U/L (15-37); SGPT/ALT 184 U/L (12-78); SODIUM 134 mEq/L (136-145); Total Protein 7.6 gm/dL (6.4-8.2)
[2017-08-19 17:05] LABS: Erythrocyte Sedimentation Rate 11 mm/hr (0-15)
[2017-08-19] MEDS ORDERED: Vibramycin 100 MG PO ONE (17:16)
[2017-08-19] MEDS ORDERED: NovoLOG Insulin SQ ONE (17:18)
[2017-08-19] MEDS ORDERED: NovoLOG Insulin ONE (17:23)
[2017-08-19] MEDS ORDERED: Vibramycin 100 MG ONE (17:24)
[2017-08-19 17:55] VITALS: BP 129/74; O2SAT 94
== END 2017-08-19 18:09 | disposition home or self-care (01) ==
LOC: ED 15:31
DX: E11.9 Type 2 diabetes mellitus without complications (principal); L03.113 Cellulitis of right upper limb; S60.221A Contusion of right hand, initial encounter; W19.XXXA Unspecified fall, initial encounter; G89.4 Chronic pain syndrome; Z79.891 Long term (current) use of opiate analgesic; Z79.4 Long term (current) use of insulin; I25.10 Atherosclerotic heart disease of native coronary artery without angina pectoris; I10 Essential (primary) hypertension; I25.2 Old myocardial infarction; B19.20 Unspecified viral hepatitis C without hepatic coma
CPT/HCPCS: 36415; 73130; 80053; 84550; 85025; 85652; 90471; 90715; 96372; 99283; 99284; L3908; A9270-GY

== ENCOUNTER 2017-08-20 18:23 | Emergency (ER) | payer OTHER ==
--- NOTE | 2017-08-20 18:55 | ERPHSYRPT ---
- History of Present Illness Time Seen by Provider: 08/20/17 18:49 Source: patient Exam Limitations: no limitations Patient Subjective Stated Complaint: recent injury to right hand. today is more swollen and tender. states he couldn't get antibiotics filled yesterday because he can't walk and doesn't have a car. Triage Nursing Assessment: to room per ems cot. skin hot to touch, pale. right hand very swollen and tender to touch. has two rings on and attempted to remove but will not come off. Physician History: pt was seen in ER recently for cellulitis right hand but this has gotten worse over the past day and will now require antibiotics and consultation with hand surgeons at [facility] this is now much more tender, swollen and erythematous than in prior records and tender with passive flexion/est of the hand. pt is out of suboxone and has not taken this for several days now. prior x-ray after fall reported as neg. Occurred: days ago Method of Injury: fell Quality: constant, throbbing Severity of Pain-Max: moderate Severity of Pain-Current: moderate Extremities Pain Location: wrist: right, hand: right Modifying Factors: Improves With: immobilization, movement Associated Symptoms: chills Allergies/Adverse Reactions: Penicillins Allergy (Verified 08/19/17 15:44) cant remember tramadol Adverse Reaction (Mild, Verified 08/19/17 15:44) "It makes my stomach messed up" haloperidol [From Haldol] Adverse Reaction (Verified 08/19/17 15:44) muscle contractions Home Medications: Buprenorphine HCl/Naloxone HCl [Suboxone 8 mg-2 mg Sl Film] 1 film SL BID [History] Insulin Aspart [NovoLOG Insulin] 15 units SQ BID 07/09/17 [History] Insulin Detemir [Levemir] 30 unit SQ TID 07/09/17 [History] Hx Tetanus, Diphtheria Vaccination/Date Given: Yes Hx Influenza Vaccination/Date Given: Yes Hx Pneumococcal Vaccination/Date Given: Yes - Review of Systems Constitutional: Chills, No Fever Eyes: No Symptoms Ears, Nose, & Throat: No Symptoms Respiratory: No Cough, No Dyspnea Cardiac: No Chest Pain, No Edema, No Syncope Abdominal/Gastrointestinal: No Abdominal Pain, No Nausea, No Vomiting, No Diarrhea Genitourinary Symptoms: No Dysuria Musculoskeletal: Joint Redness, Joint Pain, Joint Swelling, No Back Pain, No Neck Pain Skin: No Rash Neurological: No Dizziness, No Focal Weakness, No Sensory Changes Psychological: No Symptoms Endocrine: No Symptoms All Other Systems: Reviewed and Negative - Past Medical History Pertinent Past Medical History: Yes Neurological History: No Pertinent History, Seizures ENT History: No Pertinent History Cardiac History: Coronary Artery Disease, Hypertension, Myocardial Infarction ( [place]) Respiratory History: No Pertinent History Endocrine Medical History: Diabetes Type II Musculoskeletal History: Arthritis GI Medical History: GERD, Hepatitis History: No Pertinent History Psycho-Social History: Anxiety, Bipolar, Depression Male Reproductive Disorders: No Pertinent History Other Medical History: CHRONIC BACK PAIN , hepatitis C - Past Surgical History Past Surgical History: Yes Neuro Surgical History: No Pertinent History Cardiac: Angioplasty, Cardiac Catheterization Respiratory: No Pertinent History Gastrointestinal: Cholecystectomy Genitourinary: No Pertinent History Musculoskeletal: Orthopedic Surgery Male Surgical History: No Pertinent History Other Surgical History: KNEE - - Social History Smoking Status: Current every day smoker How long have you smoked: 36 Exposure to second hand smoke: No Drug Use: marijuana Patient Lives Alone: No - Nursing Vital Signs Nursing Vital Signs: Initial Vital Signs Temperature 100.8 F 08/20/17 18:24 Pulse Rate 94 H 08/20/17 18:24 Respiratory Rate 22 08/20/17 18:24 Blood Pressure 119/85 08/20/17 18:24 O2 Sat by Pulse Oximetry 95 08/20/17 18:24 Pain Scale Pain Intensity 9 - Physical Exam General Appearance: moderate distress, alert Eyes, Ears, Nose, Throat Exam: moist mucous membranes Neck Exam: non-tender, supple Cardiovascular/Respiratory Exam: chest non-tender, normal breath sounds, regular rate/rhythm, no respiratory distress Abdominal Exam: non-tender, No guarding Back Exam: normal inspection, No vertebral tenderness Wrist Exam: soft tissue tenderness, swelling Hand Exam: soft tissue tenderness (pain with ext/flexion of tendons), swelling DTR - Upper Extremity Exam: bicep (R): 2+, bicep (L): 2+, tricep (R): 2+, tricep (L): 2+ Neuro/Tendon Exam: normal sensation, normal motor functions Mental Status Exam: alert, oriented x 3, cooperative Skin Exam: normal color, warm, dry SpO2 Interpretation: normal SpO2: 95 Oxygen Delivery: Room Air Procedures - Ultrasound Ultrasound: Other (placement of IV access by Dr. Pang with US guidance in ER. ) - Course Nursing assessment & vital signs reviewed: Yes Ordered Tests: Active Orders 24 hr Category Date Time Status IV Insertion STAT Care 08/20/17 19:03 Active Wound Care STAT Care 08/20/17 19:03 Active BLOOD CULTURE Stat Lab 08/20/17 19:18 Received CBC W DIFF Stat Lab 08/20/17 19:18 Completed CMP Stat Lab 08/20/17 19:18 Completed Lactic Acid Stat Lab 08/20/17 19:16 Completed Medication Summary Discontinued Medications Generic Name Dose Route Start Last Admin Trade Name Freq PRN Reason Stop Dose Admin Acetaminophen 650 mg 08/20/17 19:26 08/20/17 19:51 Feverall 650 Mg NC 08/20/17 19:27 650 mg STAT ONE Administration Acetaminophen Confirm 08/20/17 19:36 Feverall 650 Mg Administered 08/20/17 19:37 Dose 650 mg .ROUTE .STK-MED ONE Diphenhydramine HCl 25 mg 08/20/17 19:03 08/20/17 19:25 Benadryl 50 Mg/Ml IV 08/20/17 19:04 25 mg STAT ONE Administration Diphenhydramine HCl Confirm 08/20/17 19:17 Benadryl 50 Mg/Ml Administered 08/20/17 19:18 Dose 50 mg .ROUTE .STK-MED ONE Hydromorphone HCl 1 mg 08/20/17 19:05 08/20/17 19:25 Hydromorphone 1 Mg/Ml Ampule IV 08/20/17 19:06 1 mg STAT ONE Administration Hydromorphone HCl Confirm 08/20/17 19:17 Hydromorphone 1 Mg/Ml Ampule Administered 08/20/17 19:18 Dose 1 mg .ROUTE .STK-MED ONE Hydromorphone HCl 1 mg 08/20/17 20:52 08/20/17 20:59 Hydromorphone 1 Mg/Ml Ampule IV 08/20/17 20:53 1 mg STAT ONE Administration Hydromorphone HCl Confirm 08/20/17 20:55 Hydromorphone 1 Mg/Ml Ampule Administered 08/20/17 20:56 Dose 1 mg .ROUTE .STK-MED ONE Sodium Chloride 1,000 mls @ 999 mls/hr 08/20/17 19:03 08/20/17 19:22 Sodium Chloride 0.9% 1000 Ml IV 08/20/17 20:03 999 mls/hr .Q1H1M STA Administration Vancomycin HCl 1 gm in 250 mls @ 167 mls/hr 08/20/17 19:06 08/20/17 19:26 Vancomycin 1gm/ Ns 250ml IV 08/20/17 20:35 167 mls/hr STAT ONE Administration Sodium Chloride Confirm 08/20/17 19:17 Sodium Chloride 0.9% 1000 Ml Administered 08/20/17 19:18 Dose 1,000 mls @ ud .ROUTE .STK-MED ONE Vancomycin HCl Confirm 08/20/17 19:18 Vancomycin 1gm/ Ns 250ml Administered 08/20/17 19:19 Dose 250 mls @ ud IV .STK-MED ONE Ondansetron HCl 4 mg 08/20/17 19:03 08/20/17 19:26 Zofran 4 Mg/2 Ml Vial IV 08/20/17 19:04 4 mg STAT ONE Administration Ondansetron HCl Confirm 08/20/17 19:17 Zofran 4 Mg/2 Ml Vial Administered 08/20/17 19:18 Dose 4 mg .ROUTE .STK-MED ONE Lab/Rad Data: Laboratory Result Diagrams 08/20/17 19:18 08/20/17 19:18 Laboratory Results 08/20/17 08/20/17 08/20/17 Range/Units 19:18 19:18 19:16 WBC 8.4 (4.0-10.5) K/mm3 RBC 4.49 (4.1-5.6) M/mm3 Hgb 14.5 (12.5-18.0) gm/dl Hct 41.9 L (42-50) % MCV 93.3 (78-100) fl MCH 32.3 H (26-32) pg MCHC 34.6 (32-36) g/dl RDW 14.6 H (11.5-14.0) % Plt Count 75 L (150-450) K/mm3 MPV 12.6 H (6-9.5) fl Gran % 68.7 H (36.0-66.0) % Lymphocytes % 22.8 L (24.0-44.0) % Monocytes % 7.2 (0.0-12.0) % Eosinophils % 0.8 (0.00-5.0) % Basophils % 0.5 (0.0-0.4) % Basophils # 0.04 (0-0.4) Sodium 132 L (136-145) mEq/L Potassium 3.5 (3.5-5.1) mEq/L Chloride 97 L (98-107) mEq/L Carbon Dioxide 30.0 (21-32) mEq/L Anion Gap 8.8 (5-15) MEQ/L BUN 9 (9-20) mg/dL Creatinine 0.75 (0.55-1.30) mg/dl Estimated GFR > 60 ML/MIN Glucose 341 H (70-110) MG/DL Lactic Acid 1.4 (0.4-2.0) Calcium 8.0 L (8.5-10.1) mg/dL Total Bilirubin 2.50 H (0.2-1.0) mg/dL AST 148 H (15-37) U/L ALT 158 H (12-78) U/L Alkaline Phosphatase 173 H (46-116) U/L Serum Total Protein 7.5 (6.4-8.2) gm/dL Albumin 2.3 L (3.4-5.0) g/dL - Progress Progress: unchanged, re-examined Progress Note: 08/20/17 21 08/20/17 21:[address] Chavez and Dr Diaz ( hand specialist) at [facility] and they accept pt in transfer ( we do not have this capability and cannot perfomr the imaging required to complete workup here) Discussed with Dr.: Other (Dr Chavez and Dr Diaz at [facility]) Will see patient in: ED Counseled pt/family regarding: drug and/or alcohol abuse, lab results, diagnosis , need for follow-up - Departure Time of Disposition: 21:53 Departure Disposition: Transfer Clinical Impression: Palmar space infection of right hand Condition: Fair Critical Care Time: No Referrals: DOCTOR,NO FAMILY [NON-STAFF PHY W/O PRIVILEGES] -
[2017-08-20] MEDS ORDERED: BENADRYL 50 MG/ML IV ONE (19:03)
[2017-08-20] MEDS ORDERED: Sodium Chloride 0.9% 1000 ML 1,000 ML IV STA (19:03)
[2017-08-20] MEDS ORDERED: Zofran 4 MG/2 ML VIAL IV ONE (19:03)
[2017-08-20] MEDS ORDERED: Hydromorphone 1 mg/ml Ampule IV ONE ×2 (19:05→20:52)
[2017-08-20] MEDS ORDERED: Vancomycin 1GM/ Ns 250ML*** 1 GM/250 ML IVPB IV ONE (19:06)
[2017-08-20] MEDS ORDERED: Sodium Chloride 0.9% 1000 ML 1,000 ML ONE (19:17)
[2017-08-20] MEDS ORDERED: Hydromorphone 1 mg/ml Ampule ONE ×2 (19:17→20:55)
[2017-08-20] MEDS ORDERED: Zofran 4 MG/2 ML VIAL ONE (19:17)
[2017-08-20] MEDS ORDERED: BENADRYL 50 MG/ML ONE (19:17)
[2017-08-20] MEDS ORDERED: Vancomycin 1GM/ Ns 250ML*** 250 ML IV ONE (19:18)
[2017-08-20 19:24] LABS: BASOPHIL % 0.5 % (0.0-0.4); Eosinophil % 0.8 % (0.00-5.0); Granulocytes % 68.7 % (36.0-66.0); Lymphocytes % 22.8 % (24.0-44.0); Mean Cell Volume 93.3 fl (78-100); Mean Corpuscular Hemoglobin 32.3 pg (26-32); Mean Platelet Volume 12.6 fl (6-9.5); Monocytes % 7.2 % (0.0-12.0); Platelet Count 75 K/mm3 (150-450); Red Blood Count 4.49 M/mm3 (4.1-5.6); Red Cell Distribution Width 14.6 % (11.5-14.0); White Blood Count 8.4 K/mm3 (4.0-10.5)
[2017-08-20] MEDS ORDERED: FEVERALL 650 MG PR ONE (19:26)
[2017-08-20] MEDS ORDERED: FEVERALL 650 MG ONE (19:36)
[2017-08-20 19:54] LABS: ALBUMIN 2.3 g/dL (3.4-5.0); ALKALINE PHOSPHATASE 173 U/L (46-116); ANION GAP 8.8 MEQ/L (5-15); BLOOD UREA NITROGEN 9 mg/dL (9-20); CHLORIDE 97 mEq/L (98-107); Glucose 341 MG/DL (70-110); Potassium 3.5 mEq/L (3.5-5.1); SGOT/AST 148 U/L (15-37); SGPT/ALT 158 U/L (12-78); SODIUM 132 mEq/L (136-145); Total Protein 7.5 gm/dL (6.4-8.2)
[2017-08-20 22:24] VITALS: BP 152/81; PULSE 88; O2SAT 97
== END 2017-08-20 22:49 | disposition short-term general hospital (02) ==
LOC: ED 18:23
DX: L08.89 Other specified local infections of the skin and subcutaneous tissue (principal); W19.XXXD Unspecified fall, subsequent encounter; Z79.4 Long term (current) use of insulin; Z79.891 Long term (current) use of opiate analgesic
CPT/HCPCS: 36000; 36415; 80053; 83605; 85025; 87040; 96360; 96365; 96374; 96375; 96376; 99285; J1170; J1200; J2405; J3370; A9270-GY

== ENCOUNTER 2017-09-19 23:09 | Observation (INO) | payer OTHER ==
[2017-09-19] MEDS ORDERED: MORPHINE SULFATE 4 MG INJ IV ONE (23:35)
[2017-09-19] MEDS ORDERED: BABY ASPIRIN 81 MG CHEW PO ONE (23:35)
[2017-09-19] MEDS ORDERED: BABY ASPIRIN 81 MG CHEW ONE (23:43)
--- NOTE | 2017-09-19 23:43 | ERPHSYRPT ---
- History of Present Illness Time Seen by Provider: 09/19/17 23:26 Historian: patient Exam Limitations: no limitations Patient Subjective Stated Complaint: Pt reports nausea for a few days, chest pain and shortness of breath for a few hours prior to arrival onset while watching television. Pain is in center and left side of chest. Pt radiates into neck. Describes as sharp, stabbing, intermittent in nature. Rates pain 9/ 10. Took 2 ntg without relief. Triage Nursing Assessment: Pt alert, oriented, answers all questions appropriately. Skin pink, warm, dry. Resps labored with exertion. 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 RR 24/min, pursed lip breathing. EKG at triage. Pt in shackles with officer at bedside. Lung sounds clear throughout all bowser. Physician History: 52 y/o male with history of CAD, DM and multi-substance abuse sent from senior living for left upper chest pain that started this evening. Pt describes the pain as stabbing, 7/10, constant, with radiation to neck and not relieved by NTG. Pt has been off ASA for the past week since being in senior living. Pt also admits to shortness of breath and dizziness. Pt says that she had a cath done a few years ago that showed 90% blockage. Timing/Duration: today Activities at Onset: none Quality: stabbing Location: central Chest Pain Radiation: neck Severity of Pain-Max: severe Severity of Pain-Current: severe Modifying Factors: Improves With: nothing Associated Symptoms: shortness of breath, dizziness Prior Chest Pain/Cardiac Workup: cardiac cath Nitro Today/Relief: 0.4 mg x 2 Aspirin Treatment Today: no aspirin today Allergies/Adverse Reactions: Penicillins Allergy (Intermediate, Verified 09/19/17 23:23) "raised my fever to 105" haloperidol [From Haldol] Adverse Reaction (Intermediate, Verified 09/19/17 23: 23) "EPS" muscle contractions tramadol Adverse Reaction (Mild, Verified 09/19/17 23:23) "sick" Home Medications: Buprenorphine HCl/Naloxone HCl [Suboxone 8 mg-2 mg Sl Film] 1 film SL BID [History] Insulin Aspart [NovoLOG Insulin] 15 units SQ BID 07/09/17 [History] Insulin Detemir [Levemir] 30 unit SQ TID 07/09/17 [History] Hum Insulin NPH/Reg Insulin Hm [Humulin 70-30 Vial] 7 unit SQ BID 09/19/17 [ History] Hx Tetanus, Diphtheria Vaccination/Date Given: Yes Hx Influenza Vaccination/Date Given: Yes Hx Pneumococcal Vaccination/Date Given: Yes - Review of Systems Constitutional: No Fever, No Chills Eyes: No Symptoms Ears, Nose, & Throat: No Symptoms Respiratory: Dyspnea, No Cough Cardiac: Chest Pain, No Edema, No Syncope Abdominal/Gastrointestinal: No Abdominal Pain, No Nausea, No Vomiting, No Diarrhea Genitourinary Symptoms: No Dysuria Musculoskeletal: No Back Pain, No Neck Pain Skin: No Rash Neurological: Dizziness, No Focal Weakness, No Sensory Changes Psychological: No Symptoms Endocrine: No Symptoms All Other Systems: Reviewed and Negative - Past Medical History Pertinent Past Medical History: Yes Neurological History: No Pertinent History, Seizures ENT History: No Pertinent History Cardiac History: Coronary Artery Disease, Hypertension, Myocardial Infarction ( [place]) Respiratory History: No Pertinent History Endocrine Medical History: Diabetes Type II Musculoskeletal History: Arthritis GI Medical History: GERD, Hepatitis History: No Pertinent History Psycho-Social History: Anxiety, Bipolar, Depression Male Reproductive Disorders: No Pertinent History Other Medical History: CHRONIC BACK PAIN , hepatitis C, hepatitis B. - Past Surgical History Past Surgical History: Yes Neuro Surgical History: No Pertinent History Cardiac: Angioplasty, Cardiac Catheterization Respiratory: No Pertinent History Gastrointestinal: Cholecystectomy Genitourinary: No Pertinent History Musculoskeletal: Orthopedic Surgery Male Surgical History: No Pertinent History Other Surgical History: KNEE - - Social History Smoking Status: Current every day smoker How long have you smoked: 34 Exposure to second hand smoke: No Drug Use: marijuana Patient Lives Alone: No - Nursing Vital Signs Nursing Vital Signs: Initial Vital Signs Temperature 97.8 F 09/19/17 23:14 Pulse Rate 81 09/19/17 23:14 Respiratory Rate 24 09/19/17 23:14 Blood Pressure 134/89 09/19/17 23:14 Pain Scale Pain Intensity 7 - Physical Exam General Appearance: no apparent distress, alert Eye Exam: PERRL/EOMI, eyes nml inspection Ears, Nose, Throat Exam: normal ENT inspection, moist mucous membranes Neck Exam: normal inspection, non-tender, supple, full range of motion Respiratory Exam: normal breath sounds, lungs clear, No respiratory distress Cardiovascular Exam: regular rate/rhythm, normal heart sounds Gastrointestinal/Abdomen Exam: soft, No tenderness, No mass Back Exam: normal inspection, No CVA tenderness, No vertebral tenderness Extremity Exam: normal inspection, normal range of motion Neurologic Exam: alert, oriented x 3, cooperative, normal mood/affect, sensation nml, No motor deficits Skin Exam: normal color, warm, dry - Course Nursing assessment & vital signs reviewed: Yes EKG Interpreted by Me: RATE, NORMAL AXIS, NORMAL INTERVALS (HR 73), Non- specific ST Changes Ordered Tests: Active Orders 24 hr Category Date Time 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 09/19/17 23:36 Active EKG-ER Only STAT Care 09/19/17 23:35 Active IV Insertion STAT Care 09/19/17 23:35 Active CHEST 1 VIEW (PORTABLE) Stat Exams 09/19/17 23:36 Taken CHEST WITH CONTRAST [CT] Stat Exams 09/20/17 00:37 Taken TROPONIN Q3H Lab 09/20/17 02:45 Ordered TROPONIN Q3H Lab 09/20/17 05:45 Ordered TROPONIN Q3H Lab 09/20/17 08:45 Ordered TROPONIN Q3H Lab 09/20/17 11:45 Ordered Urine Triage Profile Stat Lab 09/19/17 23:36 Ordered Medication Summary Generic Name Dose Route Start Last Admin Trade Name Freq PRN Reason Stop Dose Admin Nitroglycerin 0.4 mg 09/20/17 00:41 Nitrostat 0.4 Mg Tablet SL 10/20/17 00:40 Q5MIN PRN MR X 3 PRN CHEST PAIN Discontinued Medications Generic Name Dose Route Start Last Admin Trade Name Freq PRN Reason Stop Dose Admin Aspirin 324 mg 09/19/17 23:35 09/19/17 23:46 Baby Aspirin 81 Mg Chew PO 09/19/17 23:36 324 mg STAT ONE Administration Aspirin Confirm 09/19/17 23:43 Baby Aspirin 81 Mg Chew Administered 09/19/17 23:44 Dose 324 mg .ROUTE .STK-MED ONE Morphine Sulfate 4 mg 09/19/17 23:35 09/19/17 23:45 Morphine Sulfate 4 Mg Inj IV 09/19/17 23:36 4 mg STAT ONE Administration Morphine Sulfate Confirm 09/19/17 23:44 Morphine Sulfate 4 Mg Inj Administered 09/19/17 23:45 Dose 4 mg .ROUTE .STK-MED ONE Morphine Sulfate 4 mg 09/20/17 02:10 09/20/17 02:11 Morphine Sulfate 4 Mg Inj IV 09/20/17 02:11 4 mg STAT ONE Administration Morphine Sulfate Confirm 09/20/17 02:10 Morphine Sulfate 4 Mg Inj Administered 09/20/17 02:11 Dose 4 mg .ROUTE .STK-MED ONE Lab/Rad Data: Laboratory Result Diagrams 09/19/17 00:07 09/19/17 00:07 Laboratory Results 09/19/17 09/19/17 09/19/17 Range/Units 00:07 00:07 00:07 WBC (4.0-10.5) K/mm3 RBC (4.1-5.6) M/mm3 Hgb (12.5-18.0) gm/dl Hct (42-50) % MCV (78-100) fl MCH (26-32) pg MCHC (32-36) g/dl RDW (11.5-14.0) % Plt Count (150-450) K/mm3 MPV (6-9.5) fl INR 1.62 (0.8-3.0) APTT 40.6 H (24.1-36.1) SECONDS D-Dimer 2655 H* (0-500) ng/mL Sodium 128 L (136-145) mEq/L Potassium 4.2 (3.5-5.1) mEq/L Chloride 97 L (98-107) mEq/L Carbon Dioxide 22.9 (21-32) mEq/L Anion Gap 12.4 (5-15) MEQ/L BUN 8 L (9-20) mg/dL Creatinine 0.83 (0.55-1.30) mg/dl Estimated GFR > 60 ML/MIN Glucose 394 H (70-110) MG/DL Calcium 8.3 L (8.5-10.1) mg/dL Total Bilirubin 2.00 H (0.2-1.0) mg/dL AST 285 H (15-37) U/L ALT 314 H (12-78) U/L Alkaline Phosphatase 210 H (46-116) U/L Creatine Kinase 87 (39-308) U/L Troponin I < 0.017 (0.000-0.056) ng/ml NT-Pro-B Natriuret Pep 70 (0-125) pg/ml Serum Total Protein 8.0 (6.4-8.2) gm/dL Albumin 2.2 L (3.4-5.0) g/dL 09/19/17 Range/Units 00:07 WBC 7.6 (4.0-10.5) K/mm3 RBC 5.10 (4.1-5.6) M/mm3 Hgb 16.3 (12.5-18.0) gm/dl Hct 46.5 (42-50) % MCV 91.2 (78-100) fl MCH 32.0 (26-32) pg MCHC 35.1 (32-36) g/dl RDW 13.6 (11.5-14.0) % Plt Count 77 L (150-450) K/mm3 MPV 12.9 H (6-9.5) fl INR (0.8-3.0) APTT (24.1-36.1) SECONDS D-Dimer (0-500) ng/mL Sodium (136-145) mEq/L Potassium (3.5-5.1) mEq/L Chloride (98-107) mEq/L Carbon Dioxide (21-32) mEq/L Anion Gap (5-15) MEQ/L BUN (9-20) mg/dL Creatinine (0.55-1.30) mg/dl Estimated GFR ML/MIN Glucose (70-110) MG/DL Calcium (8.5-10.1) mg/dL Total Bilirubin (0.2-1.0) mg/dL AST (15-37) U/L ALT (12-78) U/L Alkaline Phosphatase (46-116) U/L Creatine Kinase (39-308) U/L Troponin I (0.000-0.056) ng/ml NT-Pro-B Natriuret Pep (0-125) pg/ml Serum Total Protein (6.4-8.2) gm/dL Albumin (3.4-5.0) g/dL - Progress Progress: improved Progress Note: 09/20/17 02:20 The EKG does not show any acute findings. The CXR is negative for infiltrate. Pt has elevated LFTs from cirrhosis. The first troponin is negative. The d- dimer was elevated and the subsequent CT chest does not show any PE. The patient has required 2 doses of morphine 4mg IV with relief of pain. Pt was also given a dose of ASA 325mg PO X 1 dose. Since pt is a high risk patient with left sided chest pain, he will need to be admitted for chest pain and to F/ U troponin and serial EKGs. Pt has been admitted to Dr Serrato as a tele OBS. 09/20/17 02:23 - Departure Time of Disposition: 02:25 Departure Disposition: In-patient Admission Clinical Impression: Chest pain Qualifiers: Chest pain type: unspecified Qualified Code(s): R07.9 - Chest pain, unspecified Condition: Fair Critical Care Time: Yes Critical Care Time(excluding separately billable procedures): 75-104 minutes Referrals: CHENTE ARNOLD MD [Primary Care Provider] -
[2017-09-19] MEDS ORDERED: MORPHINE SULFATE 4 MG INJ ONE (23:44)
[2017-09-20 00:09] LABS: Mean Cell Volume 91.2 fl (78-100); Mean Platelet Volume 12.9 fl (6-9.5); Platelet Count 77 K/mm3 (150-450); Red Cell Distribution Width 13.6 % (11.5-14.0); White Blood Count 7.6 K/mm3 (4.0-10.5)
[2017-09-20 00:29] LABS: INR 1.62 (0.8-3.0); PROTIME 18.1 SECONDS (8.83-12.87)
[2017-09-20 00:31] LABS: PTT 40.6 SECONDS (24.1-36.1)
[2017-09-20] MEDS ORDERED: Nitrostat 0.4 MG Tablet SL PRN (00:41)
[2017-09-20 00:45] LABS: ALBUMIN 2.2 g/dL (3.4-5.0); ALKALINE PHOSPHATASE 210 U/L (46-116); ANION GAP 12.4 MEQ/L (5-15); BLOOD UREA NITROGEN 8 mg/dL (9-20); CHLORIDE 97 mEq/L (98-107); Carbon Dioxide 22.9 mEq/L (21-32); Glucose 394 MG/DL (70-110); Potassium 4.2 mEq/L (3.5-5.1); SGOT/AST 285 U/L (15-37); SGPT/ALT 314 U/L (12-78); SODIUM 128 mEq/L (136-145)
[2017-09-20] MEDS ORDERED: MORPHINE SULFATE 4 MG INJ IV ONE (02:10)
[2017-09-20] MEDS ORDERED: MORPHINE SULFATE 4 MG INJ ONE (02:10)
[2017-09-20] MEDS ORDERED: MILK OF MAGNESIA 30 ML PO PRN (02:26)
[2017-09-20] MEDS ORDERED: Senokot-S Tablet PO PRN (02:26)
[2017-09-20] MEDS ORDERED: TYLENOL 325 MG PO PRN (02:26)
[2017-09-20] MEDS ORDERED: Zofran 4 MG/2 ML VIAL IV PRN (02:26)
[2017-09-20] MEDS ORDERED: MAALOX ES 30 ML UNIT DOSE PO PRN (02:26)
[2017-09-20 03:49] LABS: Platelet Estimate NORMAL (NORMAL); Total Cells Counted 100
[2017-09-20] MEDS: MORPHINE SULFATE 2 MG INJ IV PRN ×3 (06:34→14:45)
--- NOTE | 2017-09-20 08:35 | PCM.SSS ---
History of Present Illness - Chief Complaint Chief Complaint: chest pain History of Present Illness: is a 52 year old male wtih no local MD, has CAD, DM and long hx of CP admitted with CP for rule out RI. He is a [facility] of the local correction and has not had his ASA all week. He has been having CP for "longer than months" but it increased yesterday while he was watching TV to 7-8/. Pain was L sided, radiating to neck, with palpitations, N/V, no diaphoresis. He was brought to ER where his pain is better with IV morphine. Troponins are neg x 3. His CP is better this morning. - Review of Systems Cardiac: Chest Pain, Palpitations Abdominal/Gastrointestinal: Other (c/o swelling L groin past 4-5 d.) Skin: Other (dermatitis around the umbilicus) Psychological: Anxiety, No Suicidal Ideations Medications & Allergies Home Medications: Home Medication List Lisinopril 10 mg [Zestril 10 MG] 10 mg PO DAILY #30 tablet 12/12/16 [Rx Confirmed 09/20/17] Insulin NPH Hum/Reg Insulin Hm [Humulin 70-30 Vial] 7 unit SQ BID 09/20/17 [ History Confirmed 09/20/17] Allergies/Adverse Reactions: Allergies Allergy/AdvReac Type Severity Reaction Status Date / Time Penicillins Allergy Intermediate "raised my Verified 09/19/17 23:23 fever to 105" haloperidol [From Haldol] AdvReac Intermediate "EPS" Verified 09/19/17 23:23 tramadol AdvReac Mild "sick" Verified 09/19/17 23:23 - Past Medical History Past Medical History: Yes Neurological History: No Pertinent History, Seizures ENT History: No Pertinent History Cardiac History: Coronary Artery Disease, Hypertension, Myocardial Infarction ( [place]) Respiratory History: No Pertinent History Endocrine Medical History: Diabetes Type II Musculoskelatal History: Arthritis GI Medical History: GERD, Hepatitis History: No Pertinent History Pyscho-Social History: Anxiety, Bipolar, Depression Male Reproductive Disorders: No Pertinent History Comment: CHRONIC BACK and knee PAIN , hepatitis C, hepatitis B. - Past Surgical History Past Surgical History: Yes Neuro Surgical History: No Pertinent History Cardiac History: Angioplasty, Cardiac Catheterization Respiratory Surgery: No Pertinent History GI Surgical History: Cholecystectomy Genitourinary Surgical Hx: No Pertinent History Musculskeletal Surgical Hx: Orthopedic Surgery Male Surgical History: No Pertinent History Other Surgical History: KNEE - hand - Social History Smoking Status: Current every day smoker How long have you smoked: 34 Exposure to second hand smoke: No Alcohol: Occasionally Drug Use: marijuana, bath salts, methamphetamines, narcotics, heroin - Physical Exam Vital Signs: Vital Signs - 24 hr Temp Pulse Resp BP BP Pulse Ox 09/20/17 07:05 98.2 F 66 18 130/72 93 L 09/20/17 06:00 96 09/20/17 03:53 98.4 F 80 16 123/77 96 09/20/17 02:46 98.4 F 80 16 123/77 132/84 96 09/20/17 02:34 90 16 132/84 96 09/20/17 01:50 16 09/20/17 01:37 72 14 115/82 97 09/20/17 00:50 16 09/20/17 00:48 76 16 133/90 97 09/19/17 23:59 18 09/19/17 23:55 80 18 125/65 96 09/19/17 23:14 97.8 F 81 24 134/89 General Appearance: no apparent distress Neurologic Exam: alert, oriented x 3, cooperative Eye Exam: eyes nml inspection Neck Exam: normal inspection, non-tender, No lymphadenopathy Respiratory Exam: normal breath sounds, lungs clear, No crackles/rales, No rhonchi, No wheezing Cardiovascular Exam: regular rate/rhythm, normal heart sounds, No murmur Gastrointestinal/Abdomen Exam: soft, normal bowel sounds, tenderness (RUQ, LUQ) , No distention, No mass, No guarding, No rebound Back Exam: normal inspection Extremity Exam: normal inspection, No pedal edema, No swelling Skin Exam: normal color, warm, dry, other (periumbilical erythema with mild white scale approx 0.5cm surrounding) Results - Labs Lab/Micro Results: Lab Results-Last 24 Hours 09/20/17 09/20/17 09/20/17 Range/Units 03:00 05:31 05:31 Troponin I < 0.017 < 0.017 (0.000-0.056) ng/ml Triglycerides 139 (30-200) mg/dL Cholesterol 132 (100-200) mg/dL LDL Cholesterol 70 (5-99) mg/dL HDL Cholesterol 20 L (35-60) mg/dL Heart Disease Risk Ratio 6.6 - Other Procedures and Tests Respiratory Therapy 09/20/17 08:06 EKG ROUTINE 09/21/17 05:00 EKG ROUTINE 09/22/17 05:00 EKG ROUTINE 09/23/17 05:00 EKG ROUTINE Assessment/Plan (1) Chest pain Current Visit: No Status: Acute Qualifiers: Chest pain type: unspecified Qualified Code(s): R07.9 - Chest pain, unspecified Assessment & Plan: Still some concern for PE with suboptimal visualization on CT scan. Will treat with lovenox 1mg/kg SQ BID for now. Check for DVTs. Consider repeating CT scan tomorrow. He is to have 2 more troponins, neg so far. He will need outpatient follow up with cardiology within the next week or two. Code(s): R07.9 - CHEST PAIN, UNSPECIFIED (2) Cirrhosis Current Visit: Yes Status: Chronic Qualifiers: Hepatic cirrhosis type: unspecified hepatic cirrhosis Ascites presence: without ascites Qualified Code(s): K74.60 - Unspecified cirrhosis of liver (3) Inguinal hernia Current Visit: Yes Status: Acute Qualifiers: Obstruction and gangrene presence: without obstruction or gangrene Laterality: unilateral Recurrence: not specified as recurrent Qualified Code (s): K40.90 - Unilateral inguinal hernia, without obstruction or gangrene, not specified as recurrent Assessment & Plan: R sided hernia is likely - he will want outpatient follow up with surgery. Code(s): K40.90 - UNIL INGUINAL HERNIA, W/O OBST OR GANGR, NOT SPCF RECUR (4) Diabetes Current Visit: No Status: Acute Assessment & Plan: BS 394 on admission. On home insulin dose. Code(s): E11.9 - TYPE 2 DIABETES MELLITUS WITHOUT COMPLICATIONS Hospital Summary - Hospital Course Hospital Course: Pt admitted with chest pain, d-dimer very elevated but CT reported as negative for PE; however the bolus was suboptimally timed. I discussed with radiology, we do not have a VQ scan available this week. May be able to repeat the CT after a bolus. Will go ahead and check for DVTs in [place] today. Treat for now with Lovenox 1mg/kg SQ BID. - Vitals & Intake/Output Vital Signs: Vital Signs Temperature 98.2 F 09/20/17 07:05 Pulse Rate 66 09/20/17 07:05 Respiratory Rate 18 09/20/17 07:05 Blood Pressure 130/72 09/20/17 07:05 O2 Sat by Pulse Oximetry 93 L 09/20/17 07:05 Intake & Output: Intake & Output 09/17/17 09/18/17 09/19/17 09/20/17 11:59 11:59 11:59 11:59 Weight 78.727 kg - Lab Result Diagrams: 09/19/17 00:07 09/19/17 00:07 Lab Results-Last 24 Hrs: Lab Results-Last 24 Hours 09/20/17 09/20/17 09/20/17 Range/Units 03:00 05:31 05:31 Troponin I < 0.017 < 0.017 (0.000-0.056) ng/ml Triglycerides 139 (30-200) mg/dL Cholesterol 132 (100-200) mg/dL LDL Cholesterol 70 (5-99) mg/dL HDL Cholesterol 20 L (35-60) mg/dL Heart Disease Risk Ratio 6.6 - Procedures and Test Procedures and Tests throughout Hospitalization: Therapy Orders & Screens 09/20/17 03:24 PT Screen per Nursing Assess ONCE Comment: Protocol Order Physician Instructions: Greater than 3 points order PT Admission Screenin Reason For Exam: Triggered on Admission Diagnosis: chest pain Open Wound/Cellutlitis/Pressure Ulcers: No Acute Fx/ORIF/Change in wt bearing status: No Severe MUSCULOSKELETAL pain: Yes ADL Dysfunction: No Acute CVA w/Hemiparesis/Hemiplegia: No Decreased Functional Mobility/Strength: No Sprain/Strain: No Acute Post-op Mobility Dysfunction: No Total Points: 5 09/20/17 08:06 EKG ROUTINE Comment: 09/21/17 05:00 EKG ROUTINE Comment: 09/22/17 05:00 EKG ROUTINE Comment: 09/23/17 05:00 EKG ROUTINE Comment: - Discharge Disposition: Home, Self-Care Condition: Fair Prescriptions: No Action Lisinopril 10 mg [Zestril 10 MG] 10 mg PO DAILY #30 tablet Insulin NPH Hum/Reg Insulin Hm [Humulin 70-30 Vial] 7 unit SQ BID Follow up with: CHENTE ARNOLD MD [NON-STAFF PHY W/O PRIVILEGES] -
--- NOTE | 2017-09-20 09:04 | XRAY ---
Indication: Chest pain and short of breath. Elevated d-dimer. Multiple contiguous axial images obtained through the chest using 80 cc Isovue 370 contrast and PE protocol. Comparison: August 15, 2017. There is adequate opacification of the pulmonary arteries. There is now nonoccluding pulmonary embolus in the right upper lobe pulmonary artery. Heart is not enlarged. Aorta is normal in course and caliber. There remains small hiatal hernia. Examination of the lung parenchyma again demonstrates minimal bilateral dependent atelectasis and a 8 mm noncalcified nodule in the inferior left upper lobe adjacent to the fissure. No new pulmonary mass, infiltrate, consolidation, or effusion. Bone windows again demonstrates minimal degenerative changes throughout the spine and healing right 5th anterior rib fracture. Stable bilateral gynecomastia. Limited upper abdomen again demonstrates cirrhosis, hepatic hemangioma, splenomegaly, and small ascites. Impression: 1. New right upper lobe pulmonary embolus. No distal infarct. 2. Stable left upper lobe noncalcified nodule probably granulomatous. 3. Stable small hiatal hernia and gynecomastia. 4. Upper abdomen demonstrates stable cirrhosis, hepatic hemangioma, splenomegaly, and ascites. Comment: Preliminary interpretation was made by [facility]. Pulmonary embolus not reported. I gave telephone report to Dr. Serrato at 0850 hrs. on September 20, 2017. CT DI 17.48
[2017-09-20] MEDS: Zestril 10 MG PO SCH (09:08)
[2017-09-20] MEDS: Novolin 70/30 SQ SCH ×2 (09:12→16:49)
--- NOTE | 2017-09-20 09:26 | XRAY ---
Indication: Chest pain. Comparison: August 15, 2017. Portable chest remains clear. Heart is not enlarged. No new/acute findings.
[2017-09-20] MEDS ORDERED: ENOXAPARIN SODIUM SQ SCH ×2 (10:00)
[2017-09-20] MEDS ORDERED: Ecotrin 325 MG PO SCH (10:00)
--- NOTE | 2017-09-20 10:29 | XRAY ---
Indication: Elevated d-dimer. Two-dimensional sonogram and color Doppler imaging of the major venous vessels of the left and right leg was performed. Comparison: August 15, 2017. No thrombus seen in the examined deep venous vessels of the left and right leg including greater saphenous veins. Veins demonstrate normal compressibility. Venous waveforms are normal with and without augmentation. Impression: Left and right legs again negative for DVT.
[2017-09-20] MEDS: Oxycontin 10 MG ER PO PRN (18:12)
[2017-09-20] MEDS: NovoLOG Insulin SQ PRN (21:29)
[2017-09-20] MEDS: XARELTO 10 MG TABLET PO SCH (21:29)
[2017-09-20] MEDS: BUSPAR 5 MG PO SCH (21:29)
[2017-09-21] MEDS: Oxycontin 10 MG ER PO PRN ×3 (00:14→16:41)
[2017-09-21 06:47] LABS: Mean Cell Volume 91.1 fl (78-100); Mean Corpuscular Hemoglobin 31.6 pg (26-32); Mean Platelet Volume 13.6 fl (6-9.5); Platelet Count 66 K/mm3 (150-450); Red Blood Count 4.37 M/mm3 (4.1-5.6); Red Cell Distribution Width 13.2 % (11.5-14.0); White Blood Count 5.1 K/mm3 (4.0-10.5)
[2017-09-21 06:55] LABS: ALKALINE PHOSPHATASE 161 U/L (46-116); ANION GAP 9.4 MEQ/L (5-15); BLOOD UREA NITROGEN 9 mg/dL (9-20); CHLORIDE 101 mEq/L (98-107); Carbon Dioxide 27.5 mEq/L (21-32); Glucose 273 MG/DL (70-110); Potassium 4.1 mEq/L (3.5-5.1); SGOT/AST 289 U/L (15-37); SGPT/ALT 282 U/L (12-78); SODIUM 134 mEq/L (136-145); Total Protein 6.8 gm/dL (6.4-8.2)
[2017-09-21] MEDS: NovoLOG Insulin SQ PRN ×3 (07:52→16:41)
[2017-09-21] MEDS: Novolin 70/30 SQ SCH ×2 (07:52→16:42)
--- NOTE | 2017-09-21 09:02 | PCM.NOTE ---
Date and Time: 09/21/17 0856 Subjective Assessment: On overread by our radiologist, pt found to have PE on CT at admission. He is still having 5/10 chest pain. - Review of Systems Constitutional: No Fever Cardiac: Chest Pain Objective Exam General Appearance: no apparent distress, alert Neurologic Exam: oriented x 3, cooperative Skin Exam: normal color, warm, dry Neck Exam: normal inspection, non-tender, No lymphadenopathy Respiratory Exam: normal breath sounds, lungs clear, No crackles/rales, No rhonchi, No wheezing Cardiovascular Exam: regular rate/rhythm, normal heart sounds, No murmur Extremity Exam: normal inspection, No pedal edema, No swelling Back Exam: normal inspection OBJECTIVE DATA Vital Signs: Vital Signs - 24 hr Temp Pulse Resp BP BP Pulse Ox 09/21/17 07:45 98.2 F 62 18 120/77 96 09/21/17 04:00 98.3 F 64 15 113/63 94 L 09/21/17 00:00 97.9 F 77 17 132/73 93 L 09/20/17 20:00 98.4 F 69 14 110/64 92 L 09/20/17 16:00 97.7 F 86 18 113/72 95 09/20/17 14:22 81 124/71 09/20/17 14:00 93 L 09/20/17 11:22 98.3 F 84 18 123/67 93 L 09/20/17 10:00 93 L Pain Assessment - Last Documented Pain Intensity 6 Pain Scale Used 0-10 Pain Scale Intake and Output: Intake & Output 09/18/17 09/19/17 09/20/17 09/21/17 11:59 11:59 11:59 11:59 Intake Total 240 2300 Balance 240 2300 Weight 78.727 kg 79.016 kg Lab Results: Accuchecks Date 09/21/17 Date 09/20/17 Time 07:30 Time 21:00 Accucheck Value: 260 Accucheck Value: 349 Lab Results-Last 24 Hours 09/20/17 09/20/17 09/20/17 Range/Units 05:45 08:40 11:41 WBC (4.0-10.5) K/mm3 RBC (4.1-5.6) M/mm3 Hgb (12.5-18.0) gm/dl Hct (42-50) % MCV (78-100) fl MCH (26-32) pg MCHC (32-36) g/dl RDW (11.5-14.0) % Plt Count (150-450) K/mm3 MPV (6-9.5) fl Sodium (136-145) mEq/L Potassium (3.5-5.1) mEq/L Chloride (98-107) mEq/L Carbon Dioxide (21-32) mEq/L Anion Gap (5-15) MEQ/L BUN (9-20) mg/dL Creatinine (0.55-1.30) mg/dl Estimated GFR ML/MIN Glucose (70-110) MG/DL Hemoglobin A1c 9.7 H (4.5-6.2) Calcium (8.5-10.1) mg/dL Total Bilirubin (0.2-1.0) mg/dL AST (15-37) U/L ALT (12-78) U/L Alkaline Phosphatase (46-116) U/L Troponin I < 0.017 < 0.017 (0.000-0.056) ng/ml Serum Total Protein (6.4-8.2) gm/dL Albumin (3.4-5.0) g/dL Slides for Path Review 09/21/17 09/21/17 Range/Units 05:55 05:55 WBC 5.1 (4.0-10.5) K/mm3 RBC 4.37 (4.1-5.6) M/mm3 Hgb 13.8 (12.5-18.0) gm/dl Hct 39.8 L (42-50) % MCV 91.1 (78-100) fl MCH 31.6 (26-32) pg MCHC 34.7 (32-36) g/dl RDW 13.2 (11.5-14.0) % Plt Count 66 L (150-450) K/mm3 MPV 13.6 H (6-9.5) fl Sodium 134 L (136-145) mEq/L Potassium 4.1 (3.5-5.1) mEq/L Chloride 101 (98-107) mEq/L Carbon Dioxide 27.5 (21-32) mEq/L Anion Gap 9.4 (5-15) MEQ/L BUN 9 (9-20) mg/dL Creatinine 0.72 (0.55-1.30) mg/dl Estimated GFR > 60 ML/MIN Glucose 273 H (70-110) MG/DL Hemoglobin A1c (4.5-6.2) Calcium 7.9 L (8.5-10.1) mg/dL Total Bilirubin 2.30 H (0.2-1.0) mg/dL AST 289 H (15-37) U/L ALT 282 H (12-78) U/L Alkaline Phosphatase 161 H (46-116) U/L Troponin I (0.000-0.056) ng/ml Serum Total Protein 6.8 (6.4-8.2) gm/dL Albumin 2.0 L (3.4-5.0) g/dL Slides for Path Review YES Radiology Exams: Radiology Procedures Category Date Time Status VENOUS BILATERAL EXTREMITY [US] Routine Exams 09/20/17 Completed Multi-Disciplinary Progress Notes: Multi-Disciplinary Progress Notes 09/20/17 13:40 (created 09/20/17 14:51) Case Management Note by Arielle Esparza DR. REPORTS THAT PT WILL LIKELY DC BACK TO [facility] AFTER XARELTO IS STARTED. NOTIFIED CIGAR WRAPPER AT BEDSIDE. REPORTS THAT HE WILL CALL [facility] AND NOTIFY. Initialized on 09/20/17 14:51 - END OF NOTE 09/20/17 11:35 (created 09/20/17 13:35) Case Management Note by Arielle Esparza FROM [facility] CALLED FOR UPDATE ON PT. Initialized on 09/20/17 13:35 - END OF NOTE 09/20/17 10:50 (created 09/20/17 13:32) Case Management Note by Arielle Esparza CALL TO NURSE, MARGARET, AT [facility]. REPORTS THAT RX FOR XARELTO SHOULD BE CALLED TO [facility], THIS IS THE [facility]. MARGARET REPORTS THAT SHE WILL MAKE SURE THAT RX GETS PICKED UP WHEN PT IS DISCHARGED. Initialized on 09/20/17 13:32 - END OF NOTE 09/20/17 09:15 (created 09/20/17 13:34) Case Management Note by Arielle Esparza CALL TO PT'S INSURANCE TO VERIFY IF XARELTO IS COVERED MEDICATION. INSURANCE REPORTS THAT THIS MED IS COVERED 100%. Initialized on 09/20/17 13:34 - END OF NOTE Assessment/Plan (1) Pulmonary embolism Current Visit: Yes Status: Acute Qualifiers: Pulmonary embolism type: other Chronicity: acute Acute cor pulmonale presence: with acute cor pulmonale Qualified Code(s): I26.09 - Other pulmonary embolism with acute cor pulmonale Assessment & Plan: He is on xarelto and this is covered by his insurance with no copay. However, I 'm concerned that with his multiple comorbidities (particularly his thrombocytopenia), he is at higher risk for bleeding on an anticoagulant. I have consulted hematology, thank you. Code(s): I26.99 - OTHER PULMONARY EMBOLISM WITHOUT ACUTE COR PULMONALE (2) Cirrhosis Current Visit: Yes Status: Chronic Qualifiers: Hepatic cirrhosis type: unspecified hepatic cirrhosis Ascites presence: without ascites Qualified Code(s): K74.60 - Unspecified cirrhosis of liver Assessment & Plan: Per pt he has Hep B and C but I did not do confirmatory testing. (3) Thrombocytopenia Current Visit: Yes Status: Acute Assessment & Plan: Platelets 77. (4) Inguinal hernia Current Visit: Yes Status: Acute Qualifiers: Obstruction and gangrene presence: without obstruction or gangrene Laterality: unilateral Recurrence: not specified as recurrent Qualified Code (s): K40.90 - Unilateral inguinal hernia, without obstruction or gangrene, not specified as recurrent Assessment & Plan: This is not an acute issue, did manifest recently but he is not having much discomfort. L groin. Code(s): K40.90 - UNIL INGUINAL HERNIA, W/O OBST OR GANGR, NOT SPCF RECUR (5) Coronary artery disease Current Visit: Yes Status: Acute Qualifiers: Coronary Disease-Associated Artery/Lesion type: [place] artery [place] vs. transplanted heart: [place] heart Associated angina: with unspecified angina Qualified Code(s): I25.119 - Atherosclerotic heart disease of [place] coronary artery with unspecified angina pectoris Assessment & Plan: Per pt had 90% blockage reported at last heart cath. No current rougher operator. Code(s): I25.10 - ATHSCL HEART DISEASE OF [place] CORONARY ARTERY W/O ANG PCTRS (6) Diabetes Current Visit: No Status: Acute Code(s): E11.9 - TYPE 2 DIABETES MELLITUS WITHOUT COMPLICATIONS (7) Elevated liver enzymes Current Visit: No Status: Chronic Code(s): R74.8 - ABNORMAL LEVELS OF OTHER SERUM ENZYMES (8) Multiple substance abuse Current Visit: No Status: Resolved Code(s): F19.10 - OTHER PSYCHOACTIVE SUBSTANCE ABUSE, UNCOMPLICATED (9) Chest pain Current Visit: Yes Status: Acute Qualifiers: Chest pain type: unspecified Qualified Code(s): R07.9 - Chest pain, unspecified Code(s): R07.9 - CHEST PAIN, UNSPECIFIED
[2017-09-21] MEDS: XARELTO 10 MG TABLET PO SCH (09:18)
[2017-09-21] MEDS: BUSPAR 5 MG PO SCH (09:19)
[2017-09-21] MEDS: Zestril 10 MG PO SCH (09:19)
[2017-09-21] MEDS: ZOFRAN ODT 4 MG PO PRN ×2 (11:18→16:33)
[2017-09-21 12:00] VITALS: PULSE 74; O2SAT 96
[2017-09-21 17:10] VITALS: BP 123/71
--- NOTE | 2017-09-23 09:31 | CONS ---
CONSULT DATE: 09/21/17 REASON FOR CONSULTATION: Thrombocytopenia, chronic. Patient came with a pulmonary embolism acute onset. HISTORY OF PRESENT ILLNESS: Mr. Paxton Jacobsen is a y/o WM with a past history of coronary artery disease, diabetes mellitus, and multi-substance abuse including IV drug abuser brought from [place] [facility] with acute onset of chest pain. Started on 09/19/17. Patient was brought to the Emergency Room immediately on the same day. He was off his aspirin because patient was in the [place] [facility] and the patient had a work-up done including CT angiogram of the chest done on 09/20/17 and shows new right upper lobe pulmonary embolism. No distal infarction. Stable left upper lobe noncalcified nodule, probably granulomatous. Stable small hiatal hernia and gynecomastia. Upper abdomen shows stable cirrhosis, hepatic hemangioma, splenomegaly, and ascites. Patient was started on Xarelto. At the time of admission, his blood tests show platelet count of 77,000 with normal WBC and Hgb and also BUN 9, creatinine 0.7, sodium 134, potassium 4.1, albumin 2.0, total bilirubin 2.3, AST 289, ALT 282, Alk. phos. 161. Patient has known history of hepatitis B and hepatitis C for a long time. REVIEW OF SYSTEMS: Patient denies any nausea, vomiting, abdominal pain, diarrhea, constipation, urine problem, bleeding, fever, chills, sore throat, headache, or blurring of vision. Patient states after coming here his chest pain is markedly improved. On and off, he gets some chest pain. OTHER MEDICAL PROBLES: As mentioned, coronary artery disease, diabetes mellitus, multi-substance abuse, hepatitis B positive, hepatitis C positive. PAST SURGICAL HISTORY: Angioplasty, cardiac catheterization done in the past, cholecystectomy, he had a knee surgery in the past. FAMILY HISTORY: Noncontributory. SOCIAL HISTORY: He smokes every day, smokes cigarettes. He says he smokes less than 1/2 pack a day for the last 30 years. Drinks alcohol occasionally, he said a few times a year. Whenever he drinks, he drinks vodka. PHYSICAL EXAMINATION: Thin-built, alert, awake, oriented, pleasant, cooperative, not in distress. SKIN: No cyanosis. No clubbing. No pallor. NECK: Supple, no recent JVD. LUNGS: Bilaterally clear. HEART: Normal, good sounds. ABDOMEN: Soft, bowel sounds present. No hepatosplenomegaly. Ascites present. EXTREMITIES: No edema. OIL AND GAS LEASE PUMPER: Nonfocal. 09/19/17 WBC 7.6, Hgb 16.3, platelets 77. Today, 09/21/17, WBC 5.1, Hgb 13.8, platelets 66,000. Sodium 134, potassium 4.1, total bilirubin 2.3, AST 289, ALT 282, Alk. phos. 161, creatinine 0.7, BUN 9. CT angiogram of the chest consistent with pulmonary embolism, cirrhosis of the liver, splenomegaly, ascites. PROBLEMS: 1. NEWLY DIAGNOSED PULMONARY EMBOLISM ON THE RIGHT SIDE. I discussed with the patient and the patient's friend at the bedside about the CT angiogram chest results and pulmonary embolism potential risks including life threatening risk of pulmonary embolism. Discussed about the treatment with anticoagulants including Coumadin vs newer oral anticoagulants including Xarelto, Eliquis, and Pradaxa and other potential risks of bleeding and sometimes life threatening bleeding explained. Patient understood. Questions were answered. 2. CHRONIC THROMBOCYTOPENIA. Patient has been thrombocytopenic for the last 2-3 years. Even in 12/27/13, his platelet count was 139. 04/2015, 145. 11 platelet count was 86. 04/2017, platelet count 103. 07/2017 platelet count 73. 08/20/17 platelet count 75. Discussed about the etiology of thrombocytopenia including due to splenomegaly and also hepatitis C itself can cause thrombocytopenia. Whether patient has any chronic idiopathic thrombocytopenic purpura underlying is also possible. Potential risk of bleeding including fatal internal bleeding, intracranial, and internal bleeding explained. 3. CIRRHOSIS OF THE LIVER, INCREASED LIVER ENZYMES AND TOTAL BILIARY. Secondary to hepatitis B and hepatitis C positive. Patient said that he was supposed to see Dr. Serrano many times, he canceled it. I explained to the patient importance and there is a good chance to cure the hepatitis if he follows with the treatments which may improve his liver enzymes and platelet count. I discussed with the patient above problems and further management including anticoagulation, potential risks of anticoagulation leading to life threatening bleeding especially with the thrombocytopenia and liver abnormality. Patient and the family understood. Discussed about the alternatives including not taking the blood thinners which can lead to increased pulmonary embolism which can be fatal too. Patient understood. His questions were answered. The patient preferred to take the Xarelto. PLAN: 1. Agree with and continue Xarelto 20 mg daily. 2. Patient needs to check the CBC closely at least once a month in the first few months. 3. Referral to infectious specialist or liver specialist to treat the hepatitis. 4. Follow-up with me in 2 months as an outpatient. Thank you very much Dr. Serrato for allowing me to take care of patient's care. If you have any questions, don't hesitate to call me.
== END 2017-09-21 17:30 | disposition home or self-care (01) ==
LOC: ED 23:09 → EEVIPCON 23:09 → MED SURG 09-20 02:41
PROVIDERS: ADMIT Family Medicine; ATTEND Family Medicine
DX: I26.09 Other pulmonary embolism with acute cor pulmonale (principal); R07.9 Chest pain, unspecified; K74.60 Unspecified cirrhosis of liver; K40.90 Unilateral inguinal hernia, without obstruction or gangrene, not specified as recurrent; E11.9 Type 2 diabetes mellitus without complications; Z79.4 Long term (current) use of insulin; Z79.01 Long term (current) use of anticoagulants; D69.6 Thrombocytopenia, unspecified; I25.119 Atherosclerotic heart disease of native coronary artery with unspecified angina pectoris; F19.10 Other psychoactive substance abuse, uncomplicated; K44.9 Diaphragmatic hernia without obstruction or gangrene; B19.10 Unspecified viral hepatitis B without hepatic coma; B19.20 Unspecified viral hepatitis C without hepatic coma
CPT/HCPCS: 36000; 36415; 71010; 71260; 80053; 80061; 80307; 82550; 82962; 83036; 83721; 83880; 84484; 85025; 85027; 85379; 85610; 85730; 93005; 93041; 93268; 93306; 93970; 96374; 96376; 99284; G0378; J1650; J1815; J2270; J2405; Q0162; A9270-GY

== ENCOUNTER 2017-09-23 21:03 | Observation (INO) | payer OTHER ==
--- NOTE | 2017-09-23 21:33 | ERPHSYRPT ---
- History of Present Illness Time Seen by Provider: 09/23/17 21:26 Historian: patient, police Exam Limitations: no limitations Patient Subjective Stated Complaint: states CP starting approx 1 hour [employer]. pain in right side of chest. no cough. no fever. Triage Nursing Assessment: distressed alert and oriented. c/o CP starting 1 hour [employer]. states was d/c on tuesday found diagnosed with blood clot in right lung. pain with breathing. constant pain. no cough. course lung sounds bilaterally. no pedal edema noted. states has been wearing STEVEN hose.. + pulses x 4 strong. Physician History: pt is prisoner [facility] prior admision last week for possible PE and returns with similar symptoms today. no trauma - Timing/Duration: today Activities at Onset: none Quality: fullness, pressure, sharpness Chest Pain Radiation: no radiation Severity of Pain-Max: moderate Severity of Pain-Current: moderate Modifying Factors: Improves With: coughing, movement Associated Symptoms: nausea, vomiting Prior Chest Pain/Cardiac Workup: recently seen/treated, recent hospitalization Nitro Today/Relief: 0.4 mg x 1, provided by ED, mild relief Aspirin Treatment Today: 325 mg x 1, provided by ED Allergies/Adverse Reactions: Penicillins Allergy (Intermediate, Verified 09/19/17 23:23) "raised my fever to 105" haloperidol [From Haldol] Adverse Reaction (Intermediate, Verified 09/19/17 23: 23) "EPS" muscle contractions tramadol Adverse Reaction (Mild, Verified 09/19/17 23:23) "sick" Home Medications: Insulin NPH Hum/Reg Insulin Hm [Humulin 70-30 Vial] 7 unit SQ BID 09/20/17 [ History] Hx Tetanus, Diphtheria Vaccination/Date Given: Yes Hx Influenza Vaccination/Date Given: Yes Hx Pneumococcal Vaccination/Date Given: Yes - Review of Systems Constitutional: No Fever, No Chills Eyes: No Symptoms Ears, Nose, & Throat: No Symptoms Respiratory: No Cough, No Dyspnea Cardiac: Chest Pain, No Edema, No Syncope Abdominal/Gastrointestinal: No Abdominal Pain, No Nausea, No Vomiting, No Diarrhea Genitourinary Symptoms: No Dysuria Musculoskeletal: No Back Pain, No Neck Pain Skin: No Rash Neurological: No Dizziness, No Focal Weakness, No Sensory Changes Psychological: No Symptoms Endocrine: No Symptoms All Other Systems: Reviewed and Negative - Past Medical History Pertinent Past Medical History: Yes Neurological History: No Pertinent History, Seizures ENT History: No Pertinent History Cardiac History: Coronary Artery Disease, Hypertension, Myocardial Infarction ( [place]) Respiratory History: No Pertinent History Endocrine Medical History: Diabetes Type II Musculoskeletal History: Arthritis GI Medical History: GERD, Hepatitis History: No Pertinent History Psycho-Social History: Anxiety, Bipolar, Depression Male Reproductive Disorders: No Pertinent History Other Medical History: CHRONIC BACK and knee PAIN , hepatitis C, hepatitis B. - Past Surgical History Past Surgical History: Yes Neuro Surgical History: No Pertinent History Cardiac: Angioplasty, Cardiac Catheterization Respiratory: No Pertinent History Gastrointestinal: Cholecystectomy Genitourinary: No Pertinent History Musculoskeletal: Orthopedic Surgery Male Surgical History: No Pertinent History Other Surgical History: KNEE - hand - Social History Smoking Status: Current every day smoker How long have you smoked: 34 Exposure to second hand smoke: No Drug Use: marijuana Patient Lives Alone: No - Nursing Vital Signs Nursing Vital Signs: Initial Vital Signs Temperature 98.1 F 09/23/17 21:14 Pulse Rate 67 09/23/17 21:14 Respiratory Rate 18 09/23/17 21:14 Blood Pressure 143/93 09/23/17 21:14 O2 Sat by Pulse Oximetry 100 09/23/17 21:14 Pain Scale Pain Intensity 3 - Physical Exam General Appearance: no apparent distress, alert Eye Exam: PERRL/EOMI, eyes nml inspection Ears, Nose, Throat Exam: normal ENT inspection, moist mucous membranes Neck Exam: normal inspection, non-tender, supple, full range of motion Respiratory Exam: normal breath sounds, lungs clear, No respiratory distress Cardiovascular Exam: regular rate/rhythm, normal heart sounds Gastrointestinal/Abdomen Exam: soft, No tenderness, No mass Back Exam: normal inspection, No CVA tenderness, No vertebral tenderness Extremity Exam: normal inspection, normal range of motion Neurologic Exam: alert, oriented x 3, cooperative, normal mood/affect, sensation nml, No motor deficits Skin Exam: normal color, warm, dry SpO2 Interpretation: normal SpO2: 100 Oxygen Delivery: Room Air - Course Nursing assessment & vital signs reviewed: Yes EKG Interpreted by Me: Sinus Rhythm, Left Rebuck Deviation, Non-specific ST Changes - Radiology Exams Chest X-ray Interpretation: Reviewed by me, Other (clacification near right upper ribs ) Ordered Tests: Active Orders 24 hr Category Date Time Status Clean Catch Urine Specimen STAT Care 09/23/17 21:51 Active EKG-ER Only STAT Care 09/23/17 21:26 Active IV Insertion STAT Care 09/23/17 21:26 Active Pulse Oximetry (ED) STAT Care 09/23/17 21:35 Active CHEST 1 VIEW (PORTABLE) Stat Exams 09/23/17 21:37 Taken AMYLASE Stat Lab 09/23/17 13:35 Completed CBC W DIFF Stat Lab 09/23/17 22:00 Completed CK-Creatinine Phosphokinase Stat Lab 09/23/17 13:35 Completed CMP Stat Lab 09/23/17 13:35 Completed D-DIMER QUANTITATION Stat Lab 09/23/17 22:30 Completed LIPASE Stat Lab 09/23/17 13:35 Completed Lactic Acid Stat Lab 09/23/17 22:02 Completed Lactic Acid Stat Lab 09/23/17 23:30 Completed NT PRO BNP Stat Lab 09/23/17 13:35 Completed TROPONIN Q3H Lab 09/24/17 00:00 Completed TROPONIN Q3H Lab 09/24/17 03:30 Ordered TROPONIN Q3H Lab 09/24/17 06:30 Ordered TROPONIN Q3H Lab 09/24/17 09:30 Ordered TROPONIN Q3H Lab 09/24/17 12:30 Ordered UA W/RFX UR CULTURE Stat Lab 09/23/17 21:37 Ordered Urine Triage Profile Stat Lab 09/23/17 21:37 Ordered Medication Summary Generic Name Dose Route Start Last Admin Trade Name Freq PRN Reason Stop Dose Admin Sodium Chloride 1,000 mls @ 150 mls/hr 09/23/17 23:00 09/23/17 23:28 Sodium Chloride 0.9% 1000 Ml IV 10/23/17 22:59 150 mls/hr .[id number] JENNIFER Administration Discontinued Medications Generic Name Dose Route Start Last Admin Trade Name Freq PRN Reason Stop Dose Admin Aspirin 324 mg 09/23/17 21:35 09/23/17 21:47 Baby Aspirin 81 Mg Chew PO 09/23/17 21:36 324 mg STAT ONE Administration Aspirin Confirm 09/23/17 21:44 Baby Aspirin 81 Mg Chew Administered 09/23/17 21:45 Dose 324 mg .ROUTE .STK-MED ONE Diphenhydramine HCl 25 mg 09/23/17 22:25 09/23/17 22:50 Benadryl 50 Mg/Ml IV 09/23/17 22:26 25 mg STAT ONE Administration Diphenhydramine HCl Confirm 09/23/17 22:45 Benadryl 50 Mg/Ml Administered 09/23/17 22:46 Dose 50 mg .ROUTE .STK-MED ONE Hydromorphone HCl 1 mg 09/23/17 22:24 09/23/17 22:50 Hydromorphone 1 Mg/Ml Ampule IV 09/23/17 22:25 1 mg STAT ONE Administration Hydromorphone HCl Confirm 09/23/17 22:45 Hydromorphone 1 Mg/Ml Ampule Administered 09/23/17 22:46 Dose 1 mg .ROUTE .STK-MED ONE Sodium Chloride 1,000 mls @ 999 mls/hr 09/23/17 21:35 09/23/17 21:47 Sodium Chloride 0.9% 1000 Ml IV 09/23/17 22:35 999 mls/hr .Q1H1M STA Administration Sodium Chloride Confirm 09/23/17 21:44 Sodium Chloride 0.9% 1000 Ml Administered 09/23/17 21:45 Dose 1,000 mls @ ud .ROUTE .STK-MED ONE Nitroglycerin 0.4 mg 09/23/17 21:35 09/23/17 21:47 Nitrostat 0.4 Mg (Ed) SL 09/23/17 21:36 0.4 mg STAT ONE Administration Nitroglycerin Confirm 09/23/17 21:44 Nitrostat 0.4 Mg (Ed) Administered 09/23/17 21:45 Dose 0.4 mg SL .STK-MED ONE Nitroglycerin 1 gm 09/23/17 22:29 09/23/17 22:50 Nitro-Bid 2% Ud Packets TOP 09/23/17 22:30 1 gm STAT ONE Administration Nitroglycerin Confirm 09/23/17 22:45 Nitro-Bid 2% Ud Packets Administered 09/23/17 22:46 Dose 1 gm .ROUTE .STK-MED ONE Ondansetron HCl 4 mg 09/23/17 22:26 09/23/17 22:50 Zofran 4 Mg/2 Ml Vial IV 09/23/17 22:27 4 mg STAT ONE Administration Ondansetron HCl Confirm 09/23/17 22:45 Zofran 4 Mg/2 Ml Vial Administered 09/23/17 22:46 Dose 4 mg .ROUTE .STK-MED ONE Lab/Rad Data: Laboratory Result Diagrams 09/23/17 22:00 09/23/17 13:35 Laboratory Results 09/24/17 09/23/17 09/23/17 Range/Units 00:00 23:30 22:30 WBC (4.0-10.5) K/mm3 RBC (4.1-5.6) M/mm3 Hgb (12.5-18.0) gm/dl Hct (42-50) % MCV (78-100) fl MCH (26-32) pg MCHC (32-36) g/dl RDW (11.5-14.0) % Plt Count (150-450) K/mm3 MPV (6-9.5) fl Gran % (36.0-66.0) % Lymphocytes % (24.0-44.0) % Monocytes % (0.0-12.0) % Eosinophils % (0.00-5.0) % Basophils % (0.0-0.4) % Basophils # (0-0.4) D-Dimer 3525 H* (0-500) ng/mL Sodium (136-145) mEq/L Potassium (3.5-5.1) mEq/L Chloride (98-107) mEq/L Carbon Dioxide (21-32) mEq/L Anion Gap (5-15) MEQ/L BUN (9-20) mg/dL Creatinine (0.55-1.30) mg/dl Estimated GFR ML/MIN Glucose (70-110) MG/DL Lactic Acid 1.1 (0.4-2.0) Calcium (8.5-10.1) mg/dL Total Bilirubin (0.2-1.0) mg/dL AST (15-37) U/L ALT (12-78) U/L Alkaline Phosphatase (46-116) U/L Creatine Kinase (39-308) U/L Troponin I < 0.017 (0.000-0.056) ng/ml NT-Pro-B Natriuret Pep (0-125) pg/ml Serum Total Protein (6.4-8.2) gm/dL Albumin (3.4-5.0) g/dL Amylase (25-115) U/L Lipase (73-393) U/L Slides for Path Review 09/23/17 09/23/17 09/23/17 Range/Units 22:02 22:00 13:35 WBC 8.4 (4.0-10.5) K/mm3 RBC 4.73 (4.1-5.6) M/mm3 Hgb 15.1 (12.5-18.0) gm/dl Hct 43.6 (42-50) % MCV 92.2 (78-100) fl MCH 31.9 (26-32) pg MCHC 34.6 (32-36) g/dl RDW 14.6 H (11.5-14.0) % Plt Count 84 L (150-450) K/mm3 MPV 13.9 H (6-9.5) fl Gran % 58.6 (36.0-66.0) % Lymphocytes % 31.4 (24.0-44.0) % Monocytes % 8.1 (0.0-12.0) % Eosinophils % 1.1 (0.00-5.0) % Basophils % 0.8 (0.0-0.4) % Basophils # 0.07 (0-0.4) D-Dimer (0-500) ng/mL Sodium 136 (136-145) mEq/L Potassium 4.0 (3.5-5.1) mEq/L Chloride 105 (98-107) mEq/L Carbon Dioxide 22.0 (21-32) mEq/L Anion Gap 13.0 (5-15) MEQ/L BUN 8 L (9-20) mg/dL Creatinine 0.66 (0.55-1.30) mg/dl Estimated GFR > 60 ML/MIN Glucose 301 H (70-110) MG/DL Lactic Acid 2.1 H (0.4-2.0) Calcium 7.6 L (8.5-10.1) mg/dL Total Bilirubin 1.60 H (0.2-1.0) mg/dL AST 245 H (15-37) U/L ALT 290 H (12-78) U/L Alkaline Phosphatase 173 H (46-116) U/L Creatine Kinase 86 (39-308) U/L Troponin I (0.000-0.056) ng/ml NT-Pro-B Natriuret Pep 29 (0-125) pg/ml Serum Total Protein 7.0 (6.4-8.2) gm/dL Albumin 2.1 L (3.4-5.0) g/dL Amylase 47 (25-115) U/L Lipase 111 (73-393) U/L Slides for Path Review YES - Progress Progress: improved, re-examined Air Movement: good Progress Note: 09/24/17 00:44 It appears that the patient may not have been getting his Xarelto blood thinner [facility] the [facility] 09/24/17 01:[address] Baker and pt and will place on obs and restart Xarelto and treat Diabetes; Blood Culture(s) Obtained: No Antibiotics given: No Discussed with : Ama Counseled pt/family regarding: lab results, diagnosis, need for follow-up, rad results - Departure Time of Disposition: 01:04 Departure Disposition: Observation Clinical Impression: Diabetes, Pulmonary embolism Condition: Good Critical Care Time: No Referrals: DOCTOR,NO FAMILY [Primary Care Provider] -
[2017-09-23] MEDS ORDERED: Nitrostat 0.4 MG (ED) SL ONE ×2 (21:35→21:44)
[2017-09-23] MEDS ORDERED: BABY ASPIRIN 81 MG CHEW PO ONE (21:35)
[2017-09-23] MEDS ORDERED: Sodium Chloride 0.9% 1000 ML 1,000 ML IV STA (21:35)
[2017-09-23] MEDS ORDERED: BABY ASPIRIN 81 MG CHEW ONE (21:44)
[2017-09-23] MEDS ORDERED: Sodium Chloride 0.9% 1000 ML 1,000 ML ONE ×2 (21:44→23:26)
[2017-09-23 22:12] LABS: Lactic Acid 2.1 (0.4-2.0)
[2017-09-23] MEDS ORDERED: Hydromorphone 1 mg/ml Ampule IV ONE (22:24)
[2017-09-23 22:25] LABS: BASOPHIL % 0.8 % (0.0-0.4); Eosinophil % 1.1 % (0.00-5.0); Granulocytes % 58.6 % (36.0-66.0); Lymphocytes % 31.4 % (24.0-44.0); Mean Cell Volume 92.2 fl (78-100); Mean Corpuscular Hemoglobin 31.9 pg (26-32); Mean Platelet Volume 13.9 fl (6-9.5); Monocytes % 8.1 % (0.0-12.0); Platelet Count 84 K/mm3 (150-450); Red Blood Count 4.73 M/mm3 (4.1-5.6); Red Cell Distribution Width 14.6 % (11.5-14.0); White Blood Count 8.4 K/mm3 (4.0-10.5)
[2017-09-23] MEDS ORDERED: BENADRYL 50 MG/ML IV ONE (22:25)
[2017-09-23] MEDS ORDERED: Zofran 4 MG/2 ML VIAL IV ONE (22:26)
[2017-09-23] MEDS ORDERED: NITRO-BID 2% UD PACKETS TOP ONE (22:29)
[2017-09-23] MEDS ORDERED: Zofran 4 MG/2 ML VIAL ONE (22:45)
[2017-09-23] MEDS ORDERED: BENADRYL 50 MG/ML ONE (22:45)
[2017-09-23] MEDS ORDERED: Hydromorphone 1 mg/ml Ampule ONE (22:45)
[2017-09-23] MEDS ORDERED: NITRO-BID 2% UD PACKETS ONE (22:45)
[2017-09-23] MEDS ORDERED: Sodium Chloride 0.9% 1000 ML 1,000 ML IV SCH (23:00)
[2017-09-24 00:10] LABS: ALBUMIN 2.1 g/dL (3.4-5.0); ALKALINE PHOSPHATASE 173 U/L (46-116); BLOOD UREA NITROGEN 8 mg/dL (9-20); CHLORIDE 105 mEq/L (98-107); Glucose 301 MG/DL (70-110); LIPASE 111 U/L (73-393); SGOT/AST 245 U/L (15-37); SGPT/ALT 290 U/L (12-78); SODIUM 136 mEq/L (136-145)
[2017-09-24] MEDS ORDERED: Zofran 4 MG/2 ML VIAL IV PRN (01:52)
[2017-09-24] MEDS ORDERED: MAALOX ES 30 ML UNIT DOSE PO PRN (01:52)
[2017-09-24] MEDS ORDERED: Senokot-S Tablet PO PRN (01:52)
[2017-09-24] MEDS ORDERED: TYLENOL 325 MG PO PRN (01:52)
[2017-09-24] MEDS ORDERED: MILK OF MAGNESIA 30 ML PO PRN (01:52)
[2017-09-24] MEDS: MORPHINE SULFATE 2 MG INJ IV PRN ×3 (04:07→12:21)
[2017-09-24] MEDS: NovoLIN R SQ PRN ×2 (08:09→11:46)
--- NOTE | 2017-09-24 09:04 | XRAY ---
Indication: Chest pain. Comparison: September 19, 2017. Portable chest remains clear with a few incidental calcified granulomas. Heart and mediastinal structures within normal limits. Bony thorax intact again with old right first rib fracture. Impression: Stable nonacute chest with chronic features.
[2017-09-24] MEDS ORDERED: XARELTO 10 MG TABLET PO SCH (10:00)
[2017-09-24] MEDS ORDERED: Pepcid 20 MG VIAL IV SCH (10:00)
[2017-09-24] MEDS ORDERED: Ecotrin 325 MG PO SCH (10:00)
[2017-09-24] MEDS ORDERED: NovoLOG 70/30 Mix SQ ONE (11:30)
[2017-09-24 11:38] VITALS: BP 127/73; PULSE 71; O2SAT 97
--- NOTE | 2017-09-24 13:33 | PCM.DCORD ---
- Discharge Discharge Date: 09/24/17 Disposition: Home, Self-Care Condition: Good Prescriptions: New Acetaminophen 325 mg [Tylenol 325 mg] 650 mg PO Q4H PRN PRN tablet PRN Reason: Pain And/Or Fever Rivaroxaban [Xarelto] 15 mg PO BID #42 tablet Continue Lisinopril 10 mg [Zestril 10 MG] 10 mg PO DAILY #30 tablet Insulin NPH Hum/Reg Insulin Hm [Humulin 70-30 Vial] 7 unit SQ BID Discontinued Rivaroxaban [Xarelto] 20 mg PO DAILY #30 tablet Additional Instructions: Take Xarelto 15 mg po bid for 21 days then change to Xarelto 20 mg po once daily. Follow up with a bpm analyst as an outpatient. Follow up with: DOCTOR,NO FAMILY [NON-STAFF PHY W/O PRIVILEGES] -
[2017-09-24] MEDS ORDERED: Novolin 70/30 SQ SCH (22:00)
== END 2017-09-24 14:35 | disposition home or self-care (01) ==
LOC: ED 21:03 → MED SURG 09-24 01:52
PROVIDERS: ADMIT Family Medicine; ATTEND Family Medicine
DX: I26.99 Other pulmonary embolism without acute cor pulmonale (principal); E11.9 Type 2 diabetes mellitus without complications; Z79.4 Long term (current) use of insulin; Z79.01 Long term (current) use of anticoagulants; Z72.0 Tobacco use; I25.10 Atherosclerotic heart disease of native coronary artery without angina pectoris; I10 Essential (primary) hypertension; I25.2 Old myocardial infarction; K21.9 Gastro-esophageal reflux disease without esophagitis; M19.90 Unspecified osteoarthritis, unspecified site; F31.9 Bipolar disorder, unspecified
CPT/HCPCS: 36000; 36415; 71010; 80053; 80061; 82150; 82550; 82962; 83605; 83690; 83721; 83880; 84484; 85025; 85379; 93005; 93268; 96360; 96361; 96375; 99285; G0378; J1170; J1200; J2270; J2405; A9270-GY

== ENCOUNTER 2017-09-26 00:56 | Emergency (ER) | payer OTHER ==
[2017-09-26] MEDS ORDERED: Sodium Chloride 0.9% 1000 ML 1,000 ML ONE ×2 (01:14→02:13)
--- NOTE | 2017-09-26 02:02 | ERPHSYRPT ---
- History of Present Illness Time Seen by Provider: 09/26/17 01:57 Source: patient Exam Limitations: no limitations Patient Subjective Stated Complaint: pt states he has been nasueated for a few days and began vomiting blood today. states he has started xarelto for a blood clot in his lung 3-4 days ago Triage Nursing Assessment: pt alert and oriented, asnwers questions approp. pt ambulatory with steady gait noted. respirations nonlabored withlungs cta. abd soft and nontender to light palpation. no emesis at this time. Physician History: Patient is a 52-year-old inmate at the [facility] where he complains that he vomited twice today. He states that the last vomitus had blood in it. He has been nauseated for several days. He is a poor historian and has vague complaints about pain in his chest abdomen and back and "all over. He was seen in this ER and admitted on 09/20/17 for chest pain admitted been ongoing for several days. He then returned after discharge and was readmitted on 09/23/17. He was discharged on 09/24/17. At the first admission it was noted he had a blood clot in his lungs. He was to have taken Xarelto had not been taking it prior to readmission. His past medical history is significant for hepatitis B and C, diabetes, CAD, PA, cirrhosis of the liver, pulmonary embolism, back pain, and drug abuse. Timing/Duration: today Severity: mild Associated Symptoms: nausea, vomiting, abdominal pain Allergies/Adverse Reactions: Penicillins Allergy (Intermediate, Verified 09/26/17 01:20) "raised my fever to 105" haloperidol [From Haldol] Adverse Reaction (Intermediate, Verified 09/26/17 01: 20) "EPS" muscle contractions tramadol Adverse Reaction (Mild, Verified 09/26/17 01:20) "sick" Home Medications: Insulin NPH Hum/Reg Insulin Hm [Humulin 70-30 Vial] 25 unit SQ BID 09/20/17 [ History] Hx Tetanus, Diphtheria Vaccination/Date Given: Yes Hx Influenza Vaccination/Date Given: Yes (2016) Hx Pneumococcal Vaccination/Date Given: Yes Immunizations Up to Date: Yes - Review of Systems Constitutional: No Fever, No Chills Eyes: No Symptoms Ears, Nose, & Throat: No Symptoms Respiratory: No Cough, No Dyspnea Cardiac: Chest Pain Abdominal/Gastrointestinal: Abdominal Pain, Nausea, Vomiting Genitourinary Symptoms: No Dysuria Musculoskeletal: Back Pain, No Neck Pain Skin: No Rash Neurological: No Dizziness, No Focal Weakness, No Sensory Changes Psychological: No Symptoms Endocrine: No Symptoms Hematologic/Lymphatic: No Symptoms Immunological/Allergic: No Symptoms All Other Systems: Reviewed and Negative - Past Medical History Pertinent Past Medical History: Yes Neurological History: Seizures ENT History: Cataracts Cardiac History: Coronary Artery Disease, Hypertension, Myocardial Infarction ( PA) Respiratory History: No Pertinent History Endocrine Medical History: Diabetes Type II Musculoskeletal History: Arthritis GI Medical History: Cirrhosis, GERD, Hepatitis History: No Pertinent History Psycho-Social History: Anxiety, Bipolar, Depression Male Reproductive Disorders: No Pertinent History Other Medical History: CHRONIC BACK and knee PAIN , hepatitis C, hepatitis B. blood clot in lung diagnosed last visit - Past Surgical History Past Surgical History: Yes Neuro Surgical History: No Pertinent History Cardiac: Angioplasty, Cardiac Catheterization Respiratory: No Pertinent History Gastrointestinal: Cholecystectomy Genitourinary: No Pertinent History Musculoskeletal: Orthopedic Surgery Male Surgical History: No Pertinent History Other Surgical History: KNEE - hand - Social History Smoking Status: Current every day smoker How long have you smoked: 34 Exposure to second hand smoke: No Drug Use: marijuana Patient Lives Alone: No - Nursing Vital Signs Nursing Vital Signs: Initial Vital Signs Temperature 96.1 F 09/26/17 01:10 Pulse Rate 106 H 09/26/17 01:10 Respiratory Rate 18 09/26/17 01:10 Blood Pressure 97/65 09/26/17 01:10 O2 Sat by Pulse Oximetry 100 09/26/17 01:10 Pain Scale Pain Intensity 8 - Physical Exam General Appearance: no apparent distress, alert Eye Exam: PERRL/EOMI, eyes nml inspection Ears, Nose, Throat Exam: normal ENT inspection, TMs normal, pharynx normal, moist mucous membranes Neck Exam: normal inspection, non-tender, supple, full range of motion Respiratory Exam: normal breath sounds, lungs clear, No respiratory distress Cardiovascular Exam: tachycardia Gastrointestinal/Abdomen Exam: tenderness (right side) Rectal Exam: not done Back Exam: normal inspection, normal range of motion, No CVA tenderness, No vertebral tenderness Extremity Exam: normal inspection, normal range of motion, pelvis stable Neurologic Exam: alert, oriented x 3, cooperative, normal mood/affect, nml cerebellar function, nml station & gait, sensation nml, No motor deficits Skin Exam: normal color, warm, dry, No rash Lymphatic Exam: No adenopathy SpO2 Interpretation: normal SpO2: 100 Oxygen Delivery: Room Air - Course EKG Interpreted by Me: Sinus Tach, Left Rye Deviation, NORMAL QRS, NORMAL ST-T Ordered Tests: Active Orders 24 hr Category Date Time Status ACCUCHECK [Accucheck] STAT Care 09/26/17 03:05 Active IV Insertion STAT Care 09/26/17 02:03 Active CBC W DIFF Stat Lab 09/26/17 02:00 Completed CMP Stat Lab 09/26/17 02:00 Completed LIPASE Stat Lab 09/26/17 02:00 Completed Lactic Acid Stat Lab 09/26/17 02:03 Results UA W/RFX UR CULTURE Stat Lab 09/26/17 01:15 Completed Urine Triage Profile Stat Lab 09/26/17 01:15 Completed Medication Summary Discontinued Medications Generic Name Dose Route Start Last Admin Trade Name Freq PRN Reason Stop Dose Admin Sodium Chloride Confirm 09/26/17 01:14 Sodium Chloride 0.9% 1000 Ml Administered 09/26/17 01:15 Dose 1,000 mls @ ud .ROUTE .STK-MED ONE Sodium Chloride 1,000 mls @ 999 mls/hr 09/26/17 02:03 09/26/17 02:16 Sodium Chloride 0.9% 1000 Ml IV 09/26/17 03:03 999 mls/hr .Q1H1M STA Administration Sodium Chloride 1,000 mls @ 999 mls/hr 09/26/17 02:11 09/26/17 01:15 Sodium Chloride 0.9% 1000 Ml IV 09/26/17 03:11 999 mls/hr .Q1H1M STA Administration Sodium Chloride Confirm 09/26/17 02:13 Sodium Chloride 0.9% 1000 Ml Administered 09/26/17 02:14 Dose 1,000 mls @ ud .ROUTE .STK-MED ONE Morphine Sulfate 4 mg 09/26/17 02:06 09/26/17 02:16 Morphine Sulfate 4 Mg Inj IV 09/26/17 02:07 4 mg STAT ONE Administration Morphine Sulfate Confirm 09/26/17 02:12 Morphine Sulfate 2 Mg Inj Administered 09/26/17 02:13 Dose 2 mg .ROUTE .STK-MED ONE Morphine Sulfate Confirm 09/26/17 02:15 Morphine Sulfate 4 Mg Inj Administered 09/26/17 02:16 Dose 4 mg .ROUTE .STK-MED ONE Ondansetron HCl 4 mg 09/26/17 02:03 09/26/17 02:16 Zofran 4 Mg/2 Ml Vial IV 09/26/17 02:04 4 mg STAT ONE Administration Ondansetron HCl Confirm 09/26/17 02:12 Zofran 4 Mg/2 Ml Vial Administered 09/26/17 02:13 Dose 4 mg .ROUTE .STK-MED ONE Pantoprazole Sodium 40 mg 09/26/17 02:06 09/26/17 02:16 Protonix 40 Mg Iv IV 09/26/17 02:07 40 mg STAT ONE Administration Pantoprazole Sodium Confirm 09/26/17 02:12 Protonix 40 Mg Iv Administered 09/26/17 02:13 Dose 40 mg IV .STK-MED ONE Sucralfate 1 g 09/26/17 02:06 09/26/17 02:16 Carafate 1 Gm PO 09/26/17 02:07 1 g STAT ONE Administration Sucralfate Confirm 09/26/17 02:13 Carafate 1 Gm Administered 09/26/17 02:14 Dose 1 g PO .STK-MED ONE Lab/Rad Data: Laboratory Result Diagrams 09/26/17 02:00 09/26/17 02:00 Laboratory Results 09/26/17 09/26/17 09/26/17 Range/Units 02:03 02:00 02:00 WBC 12.7 H (4.0-10.5) K/mm3 RBC 4.09 L (4.1-5.6) M/mm3 Hgb 13.2 (12.5-18.0) gm/dl Hct 38.5 L (42-50) % MCV 94.1 (78-100) fl MCH 32.2 H (26-32) pg MCHC 34.3 (32-36) g/dl RDW 13.8 (11.5-14.0) % Plt Count 113 L (150-450) K/mm3 MPV 13.6 H (6-9.5) fl Gran % 58.1 (36.0-66.0) % Lymphocytes % 31.9 (24.0-44.0) % Monocytes % 8.6 (0.0-12.0) % Eosinophils % 0.8 (0.00-5.0) % Basophils % 0.6 (0.0-0.4) % Basophils # 0.08 (0-0.4) Sodium 134 L (136-145) mEq/L Potassium 4.8 (3.5-5.1) mEq/L Chloride 101 (98-107) mEq/L Carbon Dioxide 27.5 (21-32) mEq/L Anion Gap 10.0 (5-15) MEQ/L BUN 20 (9-20) mg/dL Creatinine 0.92 (0.55-1.30) mg/dl Estimated GFR > 60 ML/MIN Glucose 303 H (70-110) MG/DL Lactic Acid 2.6 H (0.4-2.0) Calcium 8.5 (8.5-10.1) mg/dL Total Bilirubin 2.60 H (0.2-1.0) mg/dL AST 289 H (15-37) U/L ALT 344 H (12-78) U/L Alkaline Phosphatase 184 H (46-116) U/L Serum Total Protein 7.6 (6.4-8.2) gm/dL Albumin 2.3 L (3.4-5.0) g/dL Lipase 97 (73-393) U/L Ur Collection Type Urine Color (YELLOW) Urine Appearance (CLEAR) Urine pH (5-6) Ur Specific [place] (1.005-1.025) Urine Protein (Negative) Urine Ketones (NEGATIVE) Urine Blood (0-5) Faisal/ul Urine Nitrite (NEGATIVE) Urine Bilirubin (NEGATIVE) Urine Urobilinogen (0-1) mg/dL Ur Leukocyte Esterase (NEGATIVE) Urine Culture Reflexed (NO) Urine Glucose (NEGATIVE) mg/dL Urine Opiates Level (NEGATIVE) Ur Methadone (NEGATIVE) Urine Barbiturates (NEGATIVE) Ur Phencyclidine (PCP) (NEGATIVE) Urine Amphetamine (NEGATIVE) U Benzodiazepine Level (NEGATIVE) Urine Cocaine (NEGATIVE) Urine Marijuana (THC) (NEGATIVE) Specimen Received 09/26/17 09/26/17 Range/Units 01:15 01:15 WBC (4.0-10.5) K/mm3 RBC (4.1-5.6) M/mm3 Hgb (12.5-18.0) gm/dl Hct (42-50) % MCV (78-100) fl MCH (26-32) pg MCHC (32-36) g/dl RDW (11.5-14.0) % Plt Count (150-450) K/mm3 MPV (6-9.5) fl Gran % (36.0-66.0) % Lymphocytes % (24.0-44.0) % Monocytes % (0.0-12.0) % Eosinophils % (0.00-5.0) % Basophils % (0.0-0.4) % Basophils # (0-0.4) Sodium (136-145) mEq/L Potassium (3.5-5.1) mEq/L Chloride (98-107) mEq/L Carbon Dioxide (21-32) mEq/L Anion Gap (5-15) MEQ/L BUN (9-20) mg/dL Creatinine (0.55-1.30) mg/dl Estimated GFR ML/MIN Glucose (70-110) MG/DL Lactic Acid (0.4-2.0) Calcium (8.5-10.1) mg/dL Total Bilirubin (0.2-1.0) mg/dL AST (15-37) U/L ALT (12-78) U/L Alkaline Phosphatase (46-116) U/L Serum Total Protein (6.4-8.2) gm/dL Albumin (3.4-5.0) g/dL Lipase (73-393) U/L Ur Collection Type CLEAN CATCH Urine Color DARK YELLOW (YELLOW) Urine Appearance CLEAR (CLEAR) Urine pH 6.5 (5-6) Ur Specific [place] 1.015 (1.005-1.025) Urine Protein NEGATIVE (Negative) Urine Ketones NEGATIVE (NEGATIVE) Urine Blood NEGATIVE (0-5) Faisal/ul Urine Nitrite NEGATIVE (NEGATIVE) Urine Bilirubin NEGATIVE (NEGATIVE) Urine Urobilinogen NORMAL (0-1) mg/dL Ur Leukocyte Esterase NEGATIVE (NEGATIVE) Urine Culture Reflexed NO (NO) Urine Glucose 1000 (NEGATIVE) mg/dL Urine Opiates Level NEG. (NEGATIVE) Ur Methadone NEG. (NEGATIVE) Urine Barbiturates NEG. (NEGATIVE) Ur Phencyclidine (PCP) NEG. (NEGATIVE) Urine Amphetamine NEG. (NEGATIVE) U Benzodiazepine Level NEG. (NEGATIVE) Urine Cocaine NEG. (NEGATIVE) Urine Marijuana (THC) NEG. (NEGATIVE) Specimen Received 09/26/17 0215 - Progress Progress: improved, pain not gone completely Counseled pt/family regarding: lab results, diagnosis - Departure Time of Disposition: 03:20 Departure Disposition: Care Home/Fdc Clinical Impression: Vomiting, Diabetes, Elevated liver enzymes Condition: Stable Critical Care Time: No Referrals: ARISTEO FERRIS [Primary Care Provider] - Additional Instructions: You had an episode of vomiting. You were given Zofran 4 mg, morphine 4 mg, Protonix 40 mg, and fluids by IV in the ER. You were also given Carafate 1 g orally. Take Zofran 4 mg ODT every 6 hours as needed for vomiting.
[2017-09-26] MEDS ORDERED: Sodium Chloride 0.9% 1000 ML 1,000 ML IV STA ×2 (02:03→02:11)
[2017-09-26] MEDS ORDERED: Zofran 4 MG/2 ML VIAL IV ONE (02:03)
[2017-09-26] MEDS ORDERED: MORPHINE SULFATE 4 MG INJ IV ONE (02:06)
[2017-09-26] MEDS ORDERED: Carafate 1 GM PO ONE ×2 (02:06→02:13)
[2017-09-26] MEDS ORDERED: PROTONIX 40 MG IV IV ONE ×2 (02:06→02:12)
[2017-09-26] MEDS ORDERED: MORPHINE SULFATE 2 MG INJ ONE (02:12)
[2017-09-26] MEDS ORDERED: Zofran 4 MG/2 ML VIAL ONE (02:12)
[2017-09-26] MEDS ORDERED: MORPHINE SULFATE 4 MG INJ ONE (02:15)
[2017-09-26 02:23] LABS: Lactic Acid 2.6 (0.4-2.0)
[2017-09-26 02:27] LABS: BASOPHIL % 0.6 % (0.0-0.4); Eosinophil % 0.8 % (0.00-5.0); Granulocytes % 58.1 % (36.0-66.0); Lymphocytes % 31.9 % (24.0-44.0); Mean Cell Volume 94.1 fl (78-100); Mean Platelet Volume 13.6 fl (6-9.5); Monocytes % 8.6 % (0.0-12.0); Platelet Count 113 K/mm3 (150-450); Red Blood Count 4.09 M/mm3 (4.1-5.6); Red Cell Distribution Width 13.8 % (11.5-14.0); White Blood Count 12.7 K/mm3 (4.0-10.5)
[2017-09-26 02:46] LABS: ALBUMIN 2.3 g/dL (3.4-5.0); ALKALINE PHOSPHATASE 184 U/L (46-116); BLOOD UREA NITROGEN 20 mg/dL (9-20); CHLORIDE 101 mEq/L (98-107); Carbon Dioxide 27.5 mEq/L (21-32); Glucose 303 MG/DL (70-110); LIPASE 97 U/L (73-393); Potassium 4.8 mEq/L (3.5-5.1); SGOT/AST 289 U/L (15-37); SGPT/ALT 344 U/L (12-78); SODIUM 134 mEq/L (136-145); Total Protein 7.6 gm/dL (6.4-8.2)
[2017-09-26 02:50] LABS: Mean Corpuscular Hemoglobin 32.2 pg (26-32)
[2017-09-26 02:51] LABS: ADD URINE CULTURE? NO (NO); Bilirubin NEGATIVE (NEGATIVE); Blood NEGATIVE Ery/ul (0-5); COMPLETE URINE MICROSCOPIC? NO; Collection Type CLEAN CATCH; Glucose 1000 mg/dL (NEGATIVE); Leukocyte Esterase NEGATIVE (NEGATIVE)
[2017-09-26 03:24] VITALS: BP 100/61; PULSE 115; O2SAT 100
== END 2017-09-26 03:40 | disposition home or self-care (01) ==
LOC: ED 00:56
DX: R11.2 Nausea with vomiting, unspecified (principal); E11.9 Type 2 diabetes mellitus without complications; R74.8 Abnormal levels of other serum enzymes; K92.0 Hematemesis; I25.10 Atherosclerotic heart disease of native coronary artery without angina pectoris; I10 Essential (primary) hypertension; I25.2 Old myocardial infarction; Z79.01 Long term (current) use of anticoagulants; Z79.4 Long term (current) use of insulin
CPT/HCPCS: 36000; 36415; 80053; 80307; 81002; 82962; 83605; 83690; 85025; 96360; 96361; 96374; 96375; 99284; J2270; J2405; A9270-GY